=== PATIENT | female | born 1970 | race Two or more races ===

== ENCOUNTER 2024-05-30 09:01 | Emergency (ER) | payer MEDICAID, SELFPAY ==
[2024-05-30 09:17] VITALS: BP 150/80; PULSE 87; RESP 19; TEMP 36.7; O2SAT 98; BMI 24.6
--- NOTE | 2024-05-30 09:39 | EKG_ITS ---
[facility] Test Date: 2024-05-30 Pat Name: YESSY GUTIERREZ Department: Room: - Gender: Female Clinical Social Work Aide: : 1970 Requested By: Drew Dickey ([facility]) Order Number: [id number] Reading MD: Drew Dickey ([facility]) Measurements Intervals [place] Rate: 79 P: 15 IL: 141 QRS: 35 QRSD: 88 T: 50 QT: 383 QTc: 441 Interpretive Statements SINUS RHYTHM Compared to ECG 12/26/2023 14:21:34 Short [place] interval no longer present /store/S0/[id number].pdf
--- NOTE | 2024-05-30 09:39 | XR_ITS ---
Examination: PA lateral chest 2 views Technique: Upright PA lateral chest 2 views Exam date and time: May 30, 2024 1006 hrs. Comparison December 26, 2023 Indications: Choking episode today Findings: Normal heart size No aspiration pneumonia Intact osseous structures Impression: No aspiration pneumonia
--- NOTE | 2024-05-30 09:42 | PD.EDRME ---
Rapid Medical Screening Exam RME Arrival date/time: 05/30/24 09:01 53-year-old female presents emergency department complaining of chest pain with cough and bodyaches for several days. Patient also reports yesterday had choking episode with piece of chicken. Chief Complaint: Flu Like Symptoms Time Seen by Provider: 05/30/24 09:10 Vital signs: Vital Signs Temperature 98.1 F 05/30/24 09:17 Pulse Rate 87 05/30/24 09:17 Respiratory Rate 19 05/30/24 09:17 Blood Pressure 150/80 H 05/30/24 09:17 Pulse Oximetry (%) 98 05/30/24 09:17 Oxygen Delivery Method Room Air 05/30/24 09:17 Vital signs reviewed by provider: Yes
[2024-05-30 10:20] LABS: Basophils # (Auto) 0.1 Thou/mm3 (0.0-0.2); Basophils % (Auto) 1 % (0-2.5); Eosinophils # (Auto) 0.2 Thou/mm3 (0.0-0.5); Eosinophils % (Auto) 2 % (0-10); Hematocrit 35.3 % (36.0-46.0); Hemoglobin 11.8 g/dL (12.0-16.0); Immature Granulocytes % (Auto) 0 % (0-0); Immature Granulocytes Auto 0.02 Thou/mm3 (0.00-0.00); Lymphocytes # (Auto) 2.4 Thou/mm3 (1.0-4.8); Lymphocytes % (Auto) 33 % (10-50); Mean Corpuscular HGB Conc 33.4 g/dl (31.0-37.0); Mean Corpuscular Hemoglobin 27.1 pg (25.0-35.0); Mean Corpuscular Volume 81 fL (80-100); Monocytes # (Auto) 0.4 Thou/mm3 (0.0-0.8); Monocytes % (Auto) 6 % (0-12); Neutrophils # (Auto) 4.4 Thou/mm3 (1.8-7.7); Neutrophils % (Auto) 59 % (37-80); Nucleated Red Blood Cell % 0 /100 WBC (0); Platelet Count 370 Thou/mm3 (140-440); RDW Standard Deviation 40.1 fL (36.4-46.3); Red Blood Count 4.35 Miln/mm3 (4.00-5.20); White Blood Count 7.4 Thou/mm3 (3.6-11.0)
[2024-05-30 10:32] LABS: Amphetamine/Methamp Scrn,U Negative (Negative); Barbiturate Screen,Urine Negative (Negative); Benzodiazepines Screen,Urine Negative (Negative); Benzoylecgonine Screen, Ur Negative (Negative); Fentanyl Screen,Urine Negative (Negative); Opiate Screen,Urine Negative (Negative); THC Screen,Urine Negative (Negative)
[2024-05-30 10:43] LABS: Alanine Aminotransferase 18 U/L (10-49); Albumin, Serum 4.4 gm/dL (3.5-5.0); Albumin/Globulin Ratio 1.3 (1.2-2.2); Alkaline Phosphatase 125 U/L (46-116); Anion Gap 6 (7-16); Aspartate Amino Transferase 30 U/L (0-34); BUN/Creatinine Ratio 8 Ratio (12-20); Bilirubin,Total 0.5 mg/dL (0.3-1.2); Blood Urea Nitrogen 10 mg/dL (9-23); Calcium 9.4 mg/dL (8.3-10.6); Calcium (Corrected) 9.4 mg/dL (8.5-10.1); Carbon Dioxide 25.3 mMol/L (20.0-31.0); Chloride 98 mMol/L (98-107); Creatinine (Component) 1.2 mg/dL (0.6-1.3); Estimated Creatinine Clearance 47.9 mL/min (>60); Globulin 3.4 gm/dL (2.3-3.5); Osmolality,Calculated 279 (275-295); Potassium 4.5 mMol/L (3.4-5.1); Sodium 129 mMol/L (136-145); Total Protein 7.8 gm/dL (5.7-8.2); Troponin I < 0.002 ng/mL (0.0-0.045); eGFR 55 See Note
[2024-05-30 10:46] LABS: Glucose 487 mg/dL (74-106)
[2024-05-30 11:27] VITALS: BP 175/99; PULSE 79; RESP 18; TEMP 36.4; O2SAT 100
--- NOTE | 2024-05-30 15:34 | PC.NURSE ---
PATIENT CALLED BY LAB MULTIPLE TIMES WITH NO ANSWER. WILL TRY AGAIN
--- NOTE | 2024-05-30 16:19 | PC.NURSE ---
NO ANSWER IN LOBBY
== END 2024-05-30 16:19 | disposition left against medical advice (07) ==
LOC: SERX 09:54
PROVIDERS: Emergency Provider Emergency Medicine; PCP Family Medicine
DX: R07.9 Chest pain, unspecified (principal); R05.9 Cough, unspecified; Z53.29 Procedure and treatment not carried out because of patient's decision for other reasons
CPT/HCPCS: 36415; 71046; 80053; 80307; 84484; 85025; 87400; 87811; 93005; 99283

== ENCOUNTER 2024-06-21 21:31 | Emergency (ER) | payer MEDICAID, SELFPAY ==
[2024-06-21 21:39] VITALS: BP 153/73; PULSE 107; RESP 18; TEMP 36.4; O2SAT 100; BMI 21.6
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
[2024-06-21] MEDS: hydrOXYzine HCL 25 MG TABLET PO (22:13)
== END 2024-06-21 22:21 | disposition home or self-care (01) ==
PROVIDERS: Emergency Provider Emergency Medicine
DX: F41.9 Anxiety disorder, unspecified (principal)
CPT/HCPCS: 99282; A9270

== ENCOUNTER 2024-06-22 12:09 | Emergency (ER) | payer MEDICAID, SELFPAY ==
--- NOTE | 2024-06-22 12:33 | PD.EDRME ---
Rapid Medical Screening Exam RME Arrival date/time: 06/22/24 12:09 53-year-old female presents emergency department with complaints of chest pain. I have greeted and performed a focused initial assessment of this patient. Initial appropriate labs ordered at this time. A comprehensive ED assessment and evaluation of the patient and analysis of all test and completion of medical decision making process will be conducted by additional ED provider. Chief Complaint: Chest Pain Time Seen by Provider: 06/22/24 12:27
--- NOTE | 2024-06-22 12:44 | PC.NURSE ---
BROUGHT PT BACK TO GET VS AND TOO BE SEEN BY PROVIDER PT ASKED IF WE HAD ANY BEDS FOR HER TO LAY DOWN IN. INFORMED PT THAT WE CURRENTLY DON'T HAVE ANY BEDS PT GOT UPSET TOOK OF BF CUFF AND WALKED OUT OF ROOM AND LEFT BEFORE VS WERE DONE
== END 2024-06-22 14:11 | disposition left against medical advice (07) ==
LOC: SERX 13:29
PROVIDERS: Emergency Provider Emergency Medicine
DX: R07.9 Chest pain, unspecified (principal); Z53.29 Procedure and treatment not carried out because of patient's decision for other reasons

== ENCOUNTER 2024-07-03 10:09 | Emergency (ER) | payer MEDICAID, SELFPAY ==
[2024-07-03 10:41] VITALS: BP 121/78; PULSE 89; RESP 19; TEMP 36.6; O2SAT 100
[2024-07-03 10:42] VITALS: BMI 24.0
--- NOTE | 2024-07-03 10:42 | XR_ITS ---
Examination: PA chest single view TECHNIQUE: Upright PA chest single view Exam date and time: July 03, 2024 1051 hours Comparison May 30, 2024 FINDINGS: Onset chest pain today FINDINGS: Normal heart size. Lungs are clear. The osseous structures are intact IMPRESSION: No active disease
--- NOTE | 2024-07-03 10:42 | EKG_ITS ---
[facility] Test Date: 2024-07-03 Pat Name: YESSY GUTIERREZ Department: Room: - Gender: Female Cash Checker: : 1970 Requested By: Otto Hillman Order Number: [id number] Reading MD: Otto Hillman Measurements Intervals [place] Rate: 90 P: 22 [place]: 137 QRS: 14 QRSD: 85 T: 44 QT: 372 QTc: 457 Interpretive Statements SINUS RHYTHM Compared to ECG 05/30/2024 09:52:50 No significant changes /store/S0/[id number]
--- NOTE | 2024-07-03 10:46 | PD.EDRME ---
Rapid Medical Screening Exam RME Arrival date/time: 07/03/24 10:09 Chief Complaint: Syncope / Near Syncope Time Seen by Provider: 07/03/24 10:25 Vital signs: Vital Signs Temperature 97.9 F 07/03/24 10:41 Pulse Rate 89 07/03/24 10:41 Respiratory Rate 19 07/03/24 10:41 Blood Pressure 121/78 07/03/24 10:41 Pulse Oximetry (%) 100 07/03/24 10:41 Oxygen Delivery Method Room Air 07/03/24 10:41 RME Narrative: Chest pain, dizziness, nausea started this morning while eating breakfast
[2024-07-03 11:29] LABS: Collection Type, Urine Clean Catch
[2024-07-03 11:30] LABS: Basophils # (Auto) 0.1 Thou/mm3 (0.0-0.2); Basophils % (Auto) 1 % (0-2.5); Eosinophils # (Auto) 0.1 Thou/mm3 (0.0-0.5); Eosinophils % (Auto) 1 % (0-10); Hemoglobin 10.4 g/dL (12.0-16.0); Immature Granulocytes % (Auto) 0 % (0-0); Immature Granulocytes Auto 0.01 Thou/mm3 (0.00-0.00); Lymphocytes # (Auto) 2.3 Thou/mm3 (1.0-4.8); Lymphocytes % (Auto) 27 % (10-50); Mean Corpuscular HGB Conc 33.5 g/dl (31.0-37.0); Mean Corpuscular Volume 81 fL (80-100); Monocytes # (Auto) 0.7 Thou/mm3 (0.0-0.8); Monocytes % (Auto) 8 % (0-12); Neutrophils # (Auto) 5.3 Thou/mm3 (1.8-7.7); Neutrophils % (Auto) 63 % (37-80); Nucleated Red Blood Cell % 0 /100 WBC (0); Platelet Count 310 Thou/mm3 (140-440); RDW Standard Deviation 39.8 fL (36.4-46.3); Red Blood Count 3.85 Miln/mm3 (4.00-5.20); White Blood Count 8.4 Thou/mm3 (3.6-11.0)
[2024-07-03 11:34] LABS: Bacteria,Urine Rare; Bilirubin,Urine Negative (Negative); Blood,Urine Negative (Negative); Clarity,Urine Clear (Clear/Hazy); Color,Urine Colorless (Lt Yel-Yel); Glucose, Urine 4+ (Negative); Ketones,Urine 1+ (Negative); Leukocyte Esterase,Urine Negative (Negative); Nitrite,Urine Negative (Negative); PH,Urine 6.5 (5.0-7.0); Protein,Urine Trace (Neg - Trace); RBC,Urine 2 /hpf (0-3); Specific Gravity,Urine 1.032 (1.001-1.035); Squamous Epithelial Cell,Urine 2 /hpf (0-5); Urobilinogen,Urine Negative mg/dL (0.0-1.0); WBC,Urine 1 /hpf (0-5)
[2024-07-03 11:52] LABS: B-Type Natriuretic Peptide 33 pg/mL (0-100)
[2024-07-03 12:06] LABS: Alanine Aminotransferase 12 U/L (10-49); Albumin/Globulin Ratio 1.3 (1.2-2.2); Alkaline Phosphatase 113 U/L (46-116); Anion Gap 8 (7-16); Aspartate Amino Transferase 14 U/L (0-34); BUN/Creatinine Ratio 12 Ratio (12-20); Bilirubin,Total 0.6 mg/dL (0.3-1.2); Blood Urea Nitrogen 14 mg/dL (9-23); Calcium 8.8 mg/dL (8.3-10.6); Calcium (Corrected) 8.8 mg/dL (8.5-10.1); Carbon Dioxide 23.2 mMol/L (20.0-31.0); Chloride 93 mMol/L (98-107); Creatinine (Component) 1.2 mg/dL (0.6-1.3); Estimated Creatinine Clearance 47.9 mL/min (>60); Globulin 3.1 gm/dL (2.3-3.5); Osmolality,Calculated 283 (275-295); Potassium 3.8 mMol/L (3.4-5.1); Sodium 124 mMol/L (136-145); Total Protein 7.1 gm/dL (5.7-8.2); Troponin I < 0.002 ng/mL (0.0-0.045); eGFR 55 See Note
[2024-07-03 12:11] LABS: Glucose 699 mg/dL (74-106)
--- NOTE | 2024-07-03 13:18 | EDNOTE_ITS ---
ED Syncope RME/HPI General Chief Complaint: Syncope / Near Syncope Stated Complaint: FEVERISH, HOT FLASHES, FEEL LIKE PASSING OUT Time Seen by Provider: 07/03/24 10:25 Arrival date/time: 07/03/24 10:09 RME / HPI RME / HPI narrative: 53-year-old female patient with significant history of diabetes mellitus, homelessness, came in for evaluation regarding feeling feverish and not feeling well. Patient woke up this morning with the symptoms. Patient denies any chest pain. Denies any abdominal pain. Denies any other complaints. No medication was taken prior to arrival. Related Data Home Medications ?Medication ?Instructions ?Recorded ?Confirmed Hum Insulin Nph/Reg Insulin Hm 25 u subcut AM/PM DIABETES ##0 11/03/09 (Novolin 70/30 100 Units/Ml Via) gabapentin 100 mg capsule 600 mg PO TID PAIN #0 caps 07/18/13 atenolol 25 mg tablet (Tenormin) 25 mg PO HS #0 tabs 07/23/14 Aspirin (Adult Low Strength Aspir) 81 mg PO QDAY ##30 11/28/16 Atorvastatin Calcium 10 mg PO HS ##30 11/28/16 Citalopram Hydrobromide * (CELEXA 20 mg PO QDAY ##30 11/28/16 *) alprazolam 0.25 mg tablet 0.25 mg PO BID ##60 11/28/16 glipizide 5 mg tablet 5 mg PO QDAY ##60 11/28/16 hydrochlorothiazide 25 mg tablet 25 mg PO QDAY ##30 11/28/16 lisinopril 10 mg tablet 10 mg PO QDAY ##30 11/28/16 Previous Rx's ?Medication ?Instructions ?Recorded Hydrocodone/Acetaminophen * (NORCO 1 tab PO Q6H PRN PAIN #28 tabs 05/28/15 5/325 *) Hydrocodone/Acetaminophen * (NORCO 1 - 2 tab PO Q4H PRN PAIN #20 tabs 05/30/16 5/325 *) empty container (Sharps Container) #1 ea 12/26/23 ibuprofen 800 mg tablet 800 mg PO TID PRN pain #30 tabs 05/15/24 Allergies Allergy/AdvReac Type Severity Reaction Status Date / Time ciprofloxacin Allergy Severe HIVES, Verified 07/03/24 10:25 VOMITING Sulfa (Sulfonamide Allergy Severe ABD PAIN Verified 07/03/24 10:25 Antibiotics) AND VOMITING Review of Systems Review of Systems Narrative Review of Systems: Review of system reviewed and within normal limits except mentioned in HPI ED Exam Narrative Physical exam: VITAL SIGNS: Reviewed. GENERAL APPEARANCE: Alert and interactive, follows commands, no acute distress, HEAD AND FACE: Non-traumatic. ENT: PERRL, pink conjunctivitis, eyelid no trauma, Mucous membrane moist. NECK: Supple, nontender, no nuchal rigidity. CHEST: No tenderness, no crepitus, no paradoxical movement, no retractions. LUNGS: Clear, well ventilated, symmetric, no rales, no wheezing, no ronchi, no stridor, good breath sounds bilaterally. HEART: Regular rate, regular rhythm, no murmur, no gallops. ABDOMEN: Soft, positive bowel sounds, nondistended, no guarding, nontender, no rebound, no masses, RECTAL: Deferred. GENITAL: Deferred. NEUROLOGICAL: Gross motor function intact sensory function intact, Appropriate for age. MUSCULOSKELETAL: low back nontender, full range of motion. EXTREMITIES: Nontender, full range of motion. SKIN: Color pink, dry, no rash, no lacerations, no abrasions, no contusions. LYMPHATICS: Deferred. Course Quality Measures none Orders Category Date Time Status EKG (ED ONLY) *Do not use* NOW Care 07/03/24 10:42 Completed CXR [XR chest 1V] Stat Exams 07/03/24 10:42 Completed EKG (ED Only) Stat Exams 07/03/24 10:42 Draft BNP [B-Type Natriuretic Peptide] Stat Lab 07/03/24 11:20 Completed CBC Stat Lab 07/03/24 11:20 Completed CMP [Comprehensive Metabolic Panel] Stat Lab 07/03/24 11:20 Completed Troponin I Stat Lab 07/03/24 11:20 Completed UA [Urinalysis] Stat Lab 07/03/24 11:18 Completed Insulin Regular Med 07/03/24 13:16 Discontinued 10 unit SC X1 ONE Sodium Chloride 0.9% 1000 ml [Ns] 1,000 ml Med 07/03/24 13:17 Discontinued IV 999 mls/hr Vital Signs Vital signs: Vital Signs Temperature 97.9 F 07/03/24 10:41 Pulse Rate 89 07/03/24 10:41 Respiratory Rate 19 07/03/24 10:41 Blood Pressure 121/78 07/03/24 10:41 Pulse Oximetry (%) 100 07/03/24 10:41 Oxygen Delivery Method Room Air 07/03/24 10:41 Syncope MDM Narrative MDM Narrative:: 53-year-old female patient with significant history of diabetes mellitus, homelessness, came in for evaluation regarding feeling feverish and not feeling well. Patient woke up this morning with the symptoms. Patient denies any chest pain. Denies any abdominal pain. Denies any other complaints. No medication was taken prior to arrival. Laboratory workup showed blood sugar of 699 with no sign of DKA. The rest of the labs unremarkable. Patient received 1 L of IV fluids, and regular insulin 10 units subcu. Repeat blood sugar was noted to be 267. Patient is denying any complaints patient is ready to go home. Patient data External records reviewed:: None Clinical information provided by:: patient Social determinants that could affect healthcare access:: none (None) Patient has the following chronic illnesses:: Diabetes mellitus How is presenting disease/condition affected by chronic disease/condition?: exacerbated by Evaluation data The following diagnostics were reviewed and interpreted by me:: lab results Lab and/or radiology exams considered but not ordered:: None Interpretation Summary: Laboratory workup showed blood sugar of 699 with no sign of DKA. Medications / Prescriptions Medications or Prescriptions considered but not ordered:: none Medication administrations:: Medication Administration History Discontinued Medications Sodium Chloride (Ns) 1,000 mls @ 999 mls/hr IV .Q1H1M ONE Stop: 07/03/24 14:17 Last Admin: 07/03/24 15:18 Dose: 999 mls/hr Documented By: Insulin Human Regular (Insulin Hum Regular 1 Unit/0.01 Ml (Per Unit)) 10 unit SC X1 ONE Stop: 07/03/24 13:17 Last Admin: 07/03/24 14:50 Dose: 10 unit Documented By: Co-signed By: RAFAEL IV fluids for hydration, regular insulin Consultations Consultation(s) initiated? (list below): No Consultation #1 (Physician, Specialty, Details): None Diagnosis Syncope Differential Diagnosis: other (Hyperglycemia, DKA, poor medication compliance) Most likely diagnosis given after review of the tests above:: Hyperglycemia, history of diabetes mellitus Admission Indicated Admission indicated?: not indicated Explain why admission is indicated or not indicated:: Stable Admission Request Was there a request for admission?: No Disposition Plan Disposition Plan: Discharge Discharge Attestation Discharge Attestation: The patient was given an opportunity to ask questions and understood the allie dunlap instructions. Discharge instructions specifically effects, indications for sooner follow up or return to the emergency department, and the expected course of current diagnosis. Patient condition: Stable Discharge Plan Plan Patient Disposition: HOME (Self Care) Disposition Comment: stable Prescriptions/Referrals Prescriptions/Med Rec: No Action Hum Insulin Nph/Reg Insulin Hm (Novolin 70/30 100 Units/Ml Via) 10 ML VIAL 25 u Sub-Q AM/PM Qty: 0 gabapentin 100 MG capsule 600 mg PO TID Qty: 0 atenolol [Tenormin] 25 MG tablet 25 mg PO HS Qty: 0 Hydrocodone/Acetaminophen * (NORCO 5/325 *) 1 TAB tablet 1 tab PO Q6H PRN (Reason: PAIN) Qty: 28 0RF Hydrocodone/Acetaminophen * (NORCO 5/325 *) 1 TAB tablet 1 - 2 tab PO Q4H PRN (Reason: PAIN) Qty: 20 0RF Rx Instructions: FOR PAIN Aspirin (Adult Low Strength Aspir) 81 MG TABLET.DR 81 mg PO QDAY Qty: 30 Atorvastatin Calcium 10 MG tablet 10 mg PO HS Qty: 30 alprazolam 0.25 MG tablet 0.25 mg PO BID Qty: 60 lisinopril 10 MG tablet 10 mg PO QDAY Qty: 30 hydrochlorothiazide 25 MG tablet 25 mg PO QDAY Qty: 30 glipizide 5 MG tablet 5 mg PO QDAY Qty: 60 Citalopram Hydrobromide * (CELEXA *) 20 MG tablet 20 mg PO QDAY Qty: 30 (DME) Sharps Container Misc See Rx Instructions .Route Qty: 1 0RF Rx Instructions: As directed ibuprofen 800 mg tablet 800 mg PO TID PRN (Reason: pain) Qty: 30 0RF Referrals: Elie Manrique MD [Primary Care Provider] - In 1 week Problem List Clinical Impression: Diabetes mellitus, Hyperglycemia Patient/Caregiver Discharge Instructions Discharge Activity: activity as tolerated Education Materials: Diabetes: Caring for Your Body Additional Instructions: Thank you for the opportunity for serving you today. You are stable for discharged . You are advised to: Follow-up with your PCP in 1 to 2 days Return to ED for worsening of symptoms Increase oral fluids Take medication as prescribed by your PCP for your diabetes Print Language: Sami Stand Alone Forms: Roberta Award Info., Patient Portal Info Letter PA/EFFIE Supervising Physician FRANCISCO/EFFIE Supervising Physician: MD Maliha
[2024-07-03] MEDS: INSULIN HUM REGULAR 1 UNIT/0.01 ML (PER UNIT) 10 UNIT SC (14:50)
[2024-07-03] MEDS: SODIUM CHLORIDE 0.9% 1000 ML 1,000 ML 999 ML IV (15:18)
== END 2024-07-03 17:39 | disposition home or self-care (01) ==
PROVIDERS: Physician Assistant; Emergency Provider Emergency Medicine; PCP Family Medicine
DX: E11.65 Type 2 diabetes mellitus with hyperglycemia (principal); Z59.00 Homelessness unspecified; Z79.4 Long term (current) use of insulin; Z79.84 Long term (current) use of oral hypoglycemic drugs
CPT/HCPCS: 36415; 71045; 80053; 81001; 83880; 84484; 85025; 93005; 96360; 96361; 96372; 99284; J1815; J7030

== ENCOUNTER 2024-08-15 08:56 | Emergency (ER) | payer MEDICAID, SELFPAY ==
[2024-08-15 08:56] VITALS: BMI 22.2
[2024-08-15 09:28] VITALS: BP 118/70; PULSE 82; RESP 16; TEMP 36.4; O2SAT 98
--- NOTE | 2024-08-15 09:47 | PD.EDRME ---
Rapid Medical Screening Exam RME Arrival date/time: 08/15/24 08:56 This is a 54-year-old female who presents to the emergency department with complaints of generalized bodyaches, nausea vomiting history of DM poorly controlled. I have greeted and performed a focused initial assessment of this patient. Initial appropriate labs ordered at this time. A comprehensive ED assessment and evaluation of the patient and analysis of all test and completion of medical decision making process will be conducted by additional ED provider. Chief Complaint: Flu Like Symptoms Time Seen by Provider: 08/15/24 08:57 Vital signs: Vital Signs Temperature 97.6 F 08/15/24 09:28 Pulse Rate 82 08/15/24 09:28 Respiratory Rate 16 08/15/24 09:28 Blood Pressure 118/70 08/15/24 09:28 Pulse Oximetry (%) 98 08/15/24 09:28 Oxygen Delivery Method Room Air 08/15/24 09:28
[2024-08-15 10:04] LABS: Collection Type, Urine Clean Catch; RBC,Urine 0 /hpf (0-3)
[2024-08-15] MEDS: ONDANSETRON ODT 4 MG TABRAP PO (10:05)
[2024-08-15 10:29] LABS: Bacteria,Urine 1+; Bilirubin,Urine Negative (Negative); Blood,Urine Trace (Negative); Budding Yeast,Urine Present; Clarity,Urine Clear (Clear/Hazy); Color,Urine Lt-Yellow (Lt Yel-Yel); Glucose, Urine 4+ (Negative); Ketones,Urine 1+ (Negative); Leukocyte Esterase,Urine Negative (Negative); Nitrite,Urine Negative (Negative); PH,Urine 6.5 (5.0-7.0); Protein,Urine 1+ (Neg - Trace); Specific Gravity,Urine 1.031 (1.001-1.035); Squamous Epithelial Cell,Urine 3 /hpf (0-5); Urobilinogen,Urine Negative mg/dL (0.0-1.0); WBC,Urine 1 /hpf (0-5)
[2024-08-15 10:54] LABS: Basophils % (Auto) 1 % (0-2.5); Eosinophils # (Auto) 0.1 Thou/mm3 (0.0-0.5); Eosinophils % (Auto) 1 % (0-10); Hematocrit 35.2 % (36.0-46.0); Hemoglobin 11.5 g/dL (12.0-16.0); Immature Granulocytes % (Auto) 0 % (0-0); Immature Granulocytes Auto 0.02 Thou/mm3 (0.00-0.00); Lymphocytes # (Auto) 2.1 Thou/mm3 (1.0-4.8); Lymphocytes % (Auto) 35 % (10-50); Mean Corpuscular HGB Conc 32.7 g/dl (31.0-37.0); Mean Corpuscular Hemoglobin 26.1 pg (25.0-35.0); Mean Corpuscular Volume 80 fL (80-100); Monocytes # (Auto) 0.6 Thou/mm3 (0.0-0.8); Monocytes % (Auto) 10 % (0-12); Neutrophils # (Auto) 3.2 Thou/mm3 (1.8-7.7); Neutrophils % (Auto) 54 % (37-80); Nucleated Red Blood Cell % 0 /100 WBC (0); Platelet Count 321 Thou/mm3 (140-440); RDW Standard Deviation 42.4 fL (36.4-46.3); White Blood Count 5.9 Thou/mm3 (3.6-11.0)
[2024-08-15 11:11] LABS: Alanine Aminotransferase 14 U/L (10-49); Albumin, Serum 4.1 gm/dL (3.5-5.0); Albumin/Globulin Ratio 1.3 (1.2-2.2); Alkaline Phosphatase 96 U/L (46-116); Anion Gap 11 (7-16); Aspartate Amino Transferase 19 U/L (0-34); BUN/Creatinine Ratio 15 Ratio (12-20); Bilirubin,Total 0.4 mg/dL (0.3-1.2); Blood Urea Nitrogen 16 mg/dL (9-23); Calcium 8.7 mg/dL (8.3-10.6); Calcium (Corrected) 8.7 mg/dL (8.5-10.1); Carbon Dioxide 18.5 mMol/L (20.0-31.0); Chloride 98 mMol/L (98-107); Creatinine (Component) 1.1 mg/dL (0.6-1.3); Globulin 3.1 gm/dL (2.3-3.5); Lipase 43 U/L (12-53); Osmolality,Calculated 277 (275-295); Potassium 3.7 mMol/L (3.4-5.1); Sodium 127 mMol/L (136-145); Total Protein 7.2 gm/dL (5.7-8.2); eGFR > 60 See Note
[2024-08-15 11:13] LABS: Glucose 481 mg/dL (74-106)
--- NOTE | 2024-08-15 11:52 | EDNOTE_ITS ---
Upper Respiratory Inf. RME/HPI General Chief Complaint: Flu Like Symptoms Stated Complaint: MY BONES ACHE AND IM NAUSOUS Time Seen by Provider: 08/15/24 08:57 Arrival date/time: 08/15/24 08:56 RME / HPI RME / HPI Narrative: 54-year-old female patient with significant history of diabetes mellitus, was brought in for evaluation regarding body aches. Onset of symptoms for the last few days as of Saturday aches, feeling nauseous, severity moderate. Patient denies any cough denies any fever denies any abdominal pain denies any chest pain. Patient told me that she is taking her diabetic medication with good compliance. Denies any other complaints. Related Data Home Medications ?Medication ?Instructions ?Recorded ?Confirmed Hum Insulin Nph/Reg Insulin Hm 25 u subcut AM/PM DIABETES ##0 11/03/09 (Novolin 70/30 100 Units/Ml Via) gabapentin 100 mg capsule 600 mg PO TID PAIN #0 caps 07/18/13 atenolol 25 mg tablet (Tenormin) 25 mg PO HS #0 tabs 07/23/14 Aspirin (Adult Low Strength Aspir) 81 mg PO QDAY ##30 11/28/16 Atorvastatin Calcium 10 mg PO HS ##30 11/28/16 Citalopram Hydrobromide * (CELEXA 20 mg PO QDAY ##30 11/28/16 *) alprazolam 0.25 mg tablet 0.25 mg PO BID ##60 11/28/16 glipizide 5 mg tablet 5 mg PO QDAY ##60 11/28/16 hydrochlorothiazide 25 mg tablet 25 mg PO QDAY ##30 11/28/16 lisinopril 10 mg tablet 10 mg PO QDAY ##30 11/28/16 Previous Rx's ?Medication ?Instructions ?Recorded Hydrocodone/Acetaminophen * (NORCO 1 tab PO Q6H PRN PAIN #28 tabs 05/28/15 5/325 *) Hydrocodone/Acetaminophen * (NORCO 1 - 2 tab PO Q4H PRN PAIN #20 tabs 05/30/16 5/325 *) empty container (Sharps Container) #1 ea 12/26/23 ibuprofen 800 mg tablet 800 mg PO TID PRN pain #30 tabs 05/15/24 Allergies Allergy/AdvReac Type Severity Reaction Status Date / Time ciprofloxacin Allergy Severe HIVES, Verified 08/15/24 08:58 VOMITING Sulfa (Sulfonamide Allergy Severe ABD PAIN Verified 08/15/24 08:58 Antibiotics) AND VOMITING Review of Systems Review of Systems Narrative Review of Systems: Review of system reviewed and within normal limits except mentioned in HPI ED Exam Narrative Physical exam: VITAL SIGNS: Reviewed. GENERAL APPEARANCE: Alert and interactive, follows commands, no acute distress, HEAD AND FACE: Non-traumatic. ENT: PERRL, pink conjunctivitis, eyelid no trauma, Mucous membrane moist. NECK: Supple, nontender, no nuchal rigidity. CHEST: No tenderness, no crepitus, no paradoxical movement, no retractions. LUNGS: Clear, well ventilated, symmetric, no rales, no wheezing, no ronchi, no stridor, good breath sounds bilaterally. HEART: Regular rate, regular rhythm, no murmur, no gallops. ABDOMEN: Soft, positive bowel sounds, nondistended, no guarding, nontender, no rebound, no masses, RECTAL: Deferred. GENITAL: Deferred. NEUROLOGICAL: Gross motor function intact sensory function intact, Appropriate for age. MUSCULOSKELETAL: low back nontender, full range of motion. EXTREMITIES: Nontender, full range of motion. SKIN: Color pink, dry, no rash, no lacerations, no abrasions, no contusions. LYMPHATICS: Deferred. Course Quality Measures none Orders Category Date Time Status Bedside COVID-19 Antigen Test NOW Care 08/15/24 09:34 Active Bedside Influenza A&B Antigen Test NOW Care 08/15/24 09:35 Completed CBC Stat Lab 08/15/24 10:26 Completed Comprehensive Metabolic Panel Stat Lab 08/15/24 10:26 Completed Lipase Stat Lab 08/15/24 10:26 Completed Urinalysis Stat Lab 08/15/24 09:56 Completed Insulin Regular Med 08/15/24 11:50 Discontinued 10 unit IV X1 ONE Ondansetron Odt [Zofran Odt] Med 08/15/24 09:35 Discontinued 4 mg PO X1 ONE Potassium Chloride [K-Dur] Med 08/15/24 11:51 Discontinued 40 meq PO X1 ONE Sodium Chloride 0.9% 1000 ml [Ns] 1,000 ml Med 08/15/24 11:51 Discontinued IV 999 mls/hr Vital Signs Vital signs: Vital Signs Temperature 97.6 F 08/15/24 09:28 Pulse Rate 82 08/15/24 09:28 Respiratory Rate 16 08/15/24 09:28 Blood Pressure 118/70 08/15/24 09:28 Pulse Oximetry (%) 98 08/15/24 09:28 Oxygen Delivery Method Room Air 08/15/24 09:28 Upper Respiratory Infection MDM Narrative MDM Narrative:: 54-year-old female patient with significant history of diabetes mellitus, was brought in for evaluation regarding body aches. Onset of symptoms for the last few days as of Saturday aches, feeling nauseous, severity moderate. Patient denies any cough denies any fever denies any abdominal pain denies any chest pain. Patient told me that she is taking her diabetic medication with good compliance. Denies any other complaints. Patient workup is significant for patient treatment hyperglycemia some blood sugar of 481 with no sign of diabetic ketoacidosis. urinalysis no UTI. The rest of the labs unremarkable. Patient received IV fluids, and insulin, latest blood sugar prior to discharge was noted to be 242 Patient data External records reviewed:: None Clinical information provided by:: patient Social determinants that could affect healthcare access:: none Patient has the following chronic illnesses:: Hyper glycemia, diabetes mellitus How is presenting disease/condition affected by chronic disease/condition?: exacerbated by Evaluation data The following diagnostics were reviewed and interpreted by me:: lab results and radiology exam(s) Lab and/or radiology exams considered but not ordered:: None Interpretation Summary: See results [facility] Medications / Prescriptions Medications or Prescriptions considered but not ordered:: None Medication administrations:: Medication Administration History Discontinued Medications Sodium Chloride (Ns) 1,000 mls @ 999 mls/hr IV .Q1H1M ONE Stop: 08/15/24 12:51 Last Infusion: 08/15/24 13:17 Dose: Infused Documented By: Admin: 08/15/24 12:05 Dose: 999 mls/hr Documented By: RADHIKA Insulin Human Regular (Insulin Hum Regular 1 Unit/0.01 Ml (Per Unit)) 10 unit IV X1 ONE Stop: 08/15/24 11:51 Last Admin: 08/15/24 12:06 Dose: 10 unit Documented By: BALDEMAR Co-signed By: ROE Ondansetron HCl (Ondansetron Odt 4 Mg Tabrap) 4 mg PO X1 ONE; Protocol Stop: 08/15/24 09:36 Last Admin: 08/15/24 10:05 Dose: 4 mg Documented By: [facility] Potassium Chloride (Potassium Chloride 20 Meq Tabcr) 40 meq PO X1 ONE Stop: 08/15/24 11:52 Last Admin: 08/15/24 12:05 Dose: 40 meq Documented By: [facility] Potassium replacement, Zofran insulin and IV fluids Consultations Consultation(s) initiated? (list below): No Diagnosis Upper Respiratory Differential Diagnosis: upper respiratory infection, viral infection and other (Dehydration, hyperglycemia) Most likely diagnosis given after review of the tests above:: hyperglycemia, diabetes mellitus Admission Indicated Admission indicated?: not indicated Explain why admission is indicated or not indicated:: Stable Admission Request Was there a request for admission?: No Disposition Plan Disposition Plan: Discharge Discharge Attestation Discharge Attestation: The patient was given an opportunity to ask questions and understood the discharge instructions. Discharge instructions specifically effects, indications for sooner follow up or return to the emergency department, and the expected course of current diagnosis. Patient condition: Stable Discharge Plan Plan Patient Disposition: HOME (Self Care) Disposition Comment: Stable Prescriptions/Referrals Prescriptions/Med Rec: No Action Hum Insulin Nph/Reg Insulin Hm (Novolin 70/30 100 Units/Ml Via) 10 ML VIAL 25 u Sub-Q AM/PM Qty: 0 gabapentin 100 MG capsule 600 mg PO TID Qty: 0 atenolol [Tenormin] 25 MG tablet 25 mg PO HS Qty: 0 Hydrocodone/Acetaminophen * (NORCO 5/325 *) 1 TAB tablet 1 tab PO Q6H PRN (Reason: PAIN) Qty: 28 0RF Hydrocodone/Acetaminophen * (NORCO 5/325 *) 1 TAB tablet 1 - 2 tab PO Q4H PRN (Reason: PAIN) Qty: 20 0RF Rx Instructions: FOR PAIN Aspirin (Adult Low Strength Aspir) 81 MG TABLET.DR 81 mg PO QDAY Qty: 30 Atorvastatin Calcium 10 MG tablet 10 mg PO HS Qty: 30 alprazolam 0.25 MG tablet 0.25 mg PO BID Qty: 60 lisinopril 10 MG tablet 10 mg PO QDAY Qty: 30 hydrochlorothiazide 25 MG tablet 25 mg PO QDAY Qty: 30 glipizide 5 MG tablet 5 mg PO QDAY Qty: 60 Citalopram Hydrobromide * (CELEXA *) 20 MG tablet 20 mg PO QDAY Qty: 30 (DME) Sharps Container Misc See Rx Instructions .Route Qty: 1 0RF Rx Instructions: As directed ibuprofen 800 mg tablet 800 mg PO TID PRN (Reason: pain) Qty: 30 0RF Referrals: Elie Manrique MD [Primary Care Provider] - In 1 week Problem List Clinical Impression: Hyperglycemia, Diabetes mellitus Patient/Caregiver Discharge Instructions Discharge Activity: activity as tolerated Education Materials: ED Diet: Diabetes Additional Instructions: Thank you for the opportunity for serving you today. You are stable for discharged . You are advised to: Follow-up with your PCP in 1 to 2 days Return to ED for worsening of symptoms Increase oral fluids Take medication as prescribed by your PCP Print Language: Syriac Stand Alone Forms: Roberta Award Info., Patient Portal Info Letter PA/CLASS C DRIVER Supervising Physician FRANCISCO/EFFIE Supervising Physician: MD Laura
[2024-08-15] MEDS: SODIUM CHLORIDE 0.9% 1000 ML 1,000 ML 999 ML IV (12:05)
[2024-08-15] MEDS: POTASSIUM CHLORIDE 20 mEq TABCR 40 MEQ PO (12:05)
[2024-08-15] MEDS: INSULIN HUM REGULAR 1 UNIT/0.01 ML (PER UNIT) 10 UNIT IV (12:06)
== END 2024-08-15 15:05 | disposition home or self-care (01) ==
PROVIDERS: Nurse Practitioner Primary Care; Emergency Provider Emergency Medicine; PCP Family Medicine
DX: E11.65 Type 2 diabetes mellitus with hyperglycemia (principal)
CPT/HCPCS: 36415; 80053; 81001; 83690; 85025; 87400; 87811; 96360; 99284; J1815; J7030; Q0162; A9270

== ENCOUNTER 2024-09-07 08:07 | Emergency (ER) | payer MEDICAID, SELFPAY ==
[2024-09-07 08:07] VITALS: PULSE 97; RESP 20; O2SAT 96; BMI 22.6
[2024-09-07 08:16] VITALS: BP 131/82; PULSE 100; RESP 18; TEMP 36.7; O2SAT 97
--- NOTE | 2024-09-07 08:29 | XR_ITS ---
Examination: PA lateral chest 2 views Technique: Upright PA lateral chest 2 views Exam date and time: September 07, 2024 0913 hrs. Indications: Coughing beginning 3 days ago. Findings: Early right base pneumonia Normal heart size The osseous structures are intact Impression: Early right base pneumonia
--- NOTE | 2024-09-07 08:29 | PD.EDRME ---
Rapid Medical Screening Exam RME Arrival date/time: 09/07/24 08:07 54-year-old female insulin-dependent diabetic who reports being homeless presents to the emergency department with complaints of generalized fatigue, cough, congestion, body aches Chief Complaint: Flu Like Symptoms Time Seen by Provider: 09/07/24 08:19 Vital signs: Vital Signs Temperature 98.1 F 09/07/24 08:16 Pulse Rate 100 09/07/24 08:16 Respiratory Rate 18 09/07/24 08:16 Blood Pressure 131/82 H 09/07/24 08:16 Pulse Oximetry (%) 97 09/07/24 08:16 Oxygen Delivery Method Room Air 09/07/24 08:16
[2024-09-07 09:30] LABS: Collection Type, Urine Clean Catch
[2024-09-07 09:44] LABS: Amphetamine/Methamp Scrn,U Negative (Negative); Barbiturate Screen,Urine Negative (Negative); Benzodiazepines Screen,Urine Negative (Negative); Benzoylecgonine Screen, Ur Negative (Negative); Fentanyl Screen,Urine Negative (Negative); Opiate Screen,Urine Negative (Negative); THC Screen,Urine Negative (Negative)
[2024-09-07 09:45] LABS: Basophils % (Auto) 0 % (0-2.5); Eosinophils % (Auto) 0 % (0-10); Hematocrit 39.1 % (36.0-46.0); Hemoglobin 12.4 g/dL (12.0-16.0); Immature Granulocytes % (Auto) 0 % (0-0); Immature Granulocytes Auto 0.03 Thou/mm3 (0.00-0.00); Lymphocytes % (Auto) 26 % (10-50); Mean Corpuscular HGB Conc 31.7 g/dl (31.0-37.0); Mean Corpuscular Hemoglobin 26.2 pg (25.0-35.0); Mean Corpuscular Volume 83 fL (80-100); Monocytes # (Auto) 0.8 Thou/mm3 (0.0-0.8); Monocytes % (Auto) 11 % (0-12); Neutrophils # (Auto) 4.8 Thou/mm3 (1.8-7.7); Neutrophils % (Auto) 62 % (37-80); Nucleated Red Blood Cell % 0 /100 WBC (0); Platelet Count 317 Thou/mm3 (140-440); RDW Standard Deviation 44.2 fL (36.4-46.3); Red Blood Count 4.73 Miln/mm3 (4.00-5.20); White Blood Count 7.8 Thou/mm3 (3.6-11.0)
[2024-09-07 09:58] LABS: HCG Qualitative,Urine Negative
[2024-09-07 10:03] LABS: Alanine Aminotransferase 13 U/L (10-49); Albumin, Serum 4.5 gm/dL (3.5-5.0); Albumin/Globulin Ratio 1.1 (1.2-2.2); Alkaline Phosphatase 135 U/L (46-116); Anion Gap 18 (7-16); Aspartate Amino Transferase 24 U/L (0-34); BUN/Creatinine Ratio 16 Ratio (12-20); Bilirubin,Total 0.5 mg/dL (0.3-1.2); Blood Urea Nitrogen 19 mg/dL (9-23); Calcium 9.7 mg/dL (8.3-10.6); Calcium (Corrected) 9.7 mg/dL (8.5-10.1); Carbon Dioxide 15.9 mMol/L (20.0-31.0); Chloride 95 mMol/L (98-107); Creatinine (Component) 1.2 mg/dL (0.6-1.3); Estimated Creatinine Clearance 51.3 mL/min (>60); Globulin 4.2 gm/dL (2.3-3.5); Glucose 354 mg/dL (74-106); Lipase 34 U/L (12-53); Osmolality,Calculated 275 (275-295); Sodium 129 mMol/L (136-145); Total Protein 8.7 gm/dL (5.7-8.2); eGFR 54 See Note
[2024-09-07 10:06] LABS: Bacteria,Urine Rare; Bilirubin,Urine Negative (Negative); Blood,Urine 3+ (Negative); Clarity,Urine Clear (Clear/Hazy); Color,Urine Lt-Yellow (Lt Yel-Yel); Glucose, Urine 4+ (Negative); Ketones,Urine 4+ (Negative); Leukocyte Esterase,Urine Negative (Negative); Nitrite,Urine Negative (Negative); Protein,Urine 1+ (Neg - Trace); RBC,Urine 70 /hpf (0-3); Specific Gravity,Urine 1.028 (1.001-1.035); Squamous Epithelial Cell,Urine 5 /hpf (0-5); Urobilinogen,Urine Negative mg/dL (0.0-1.0); WBC,Urine 16 /hpf (0-5)
[2024-09-07 10:07] LABS: Culture Indicated,Urine Yes
--- NOTE | 2024-09-07 11:01 | PD.EDADULT ---
ED General RME/HPI General Chief complaint: Flu Like Symptoms Stated complaint: FLU-LIKE SYMPTOMS Time Seen by Provider: 09/07/24 08:19 Arrival date/time: 09/07/24 08:07 CC: Body aches generalized fatigue HPI ongoing for the past 3 days states she has a fever however is homeless does not have a thermometer states she continues to take her diabetes medication denies excessive thirst or excessive urination. Denies any chest pain shortness of breath or difficulty breathing. RME / HPI RME / HPI narrative: 09/07/24 08:07 54-year-old female insulin-dependent diabetic who reports being homeless presents to the emergency department with complaints of generalized fatigue, cough, congestion, body aches Related Data Home Medications ?Medication ?Instructions ?Recorded ?Confirmed Hum Insulin Nph/Reg Insulin Hm 25 u subcut AM/PM DIABETES ##0 11/03/09 (Novolin 70/30 100 Units/Ml Via) gabapentin 100 mg capsule 600 mg PO TID PAIN #0 caps 07/18/13 atenolol 25 mg tablet (Tenormin) 25 mg PO HS #0 tabs 07/23/14 Aspirin (Adult Low Strength Aspir) 81 mg PO QDAY ##30 11/28/16 Atorvastatin Calcium 10 mg PO HS ##30 11/28/16 Citalopram Hydrobromide * (CELEXA 20 mg PO QDAY ##30 11/28/16 *) alprazolam 0.25 mg tablet 0.25 mg PO BID ##60 11/28/16 glipizide 5 mg tablet 5 mg PO QDAY ##60 11/28/16 hydrochlorothiazide 25 mg tablet 25 mg PO QDAY ##30 11/28/16 lisinopril 10 mg tablet 10 mg PO QDAY ##30 11/28/16 Previous Rx's ?Medication ?Instructions ?Recorded Hydrocodone/Acetaminophen * (NORCO 1 tab PO Q6H PRN PAIN #28 tabs 05/28/15 5/325 *) Hydrocodone/Acetaminophen * (NORCO 1 - 2 tab PO Q4H PRN PAIN #20 tabs 05/30/16 5/325 *) empty container (Sharps Container) #1 ea 12/26/23 ibuprofen 800 mg tablet 800 mg PO TID PRN pain #30 tabs 05/15/24 guaifenesin 100 mg/5 mL oral liquid 200 mg (10 mL) PO Q4H PRN cough 09/07/24 #473 mL Allergies Allergy/AdvReac Type Severity Reaction Status Date / Time ciprofloxacin Allergy Severe HIVES, Verified 08/15/24 08:58 VOMITING Sulfa (Sulfonamide Allergy Severe ABD PAIN Verified 08/15/24 08:58 Antibiotics) AND VOMITING Review of Systems Review of Systems Narrative Review of Systems: GEN: No fever, no chills, no weight loss EYES: No discharge, no visual changes, no pain HEENT: No ear pain, no congestion, no sore throat PULM: No shortness of breath, no cough, no congestion CV: No chest pain, no dyspnea on exertion, no palpitations GI: No nausea, no vomiting, no diarrhea, no pain, no constipation : No frequency, no urgency, no dysuria MUSC/SKEL: No joint pain, no back pain SKIN: No rash PSYCH: No hallucinations, no depression HEME/LYMPH: No easy bleeding or bruising tendencies NEURO: No weakness, no headache Past Medical History Past Medical History CARDIAC: Positive Hypertension; Negative Congestive Heart Failure RESPIRATORY: Negative Chronic Obstructive Pulmonary Disease (COPD) GENITOURINARY: Negative Renal Disease MUSCULOSKELETAL: Positive Rheumatoid Arthritis ENDOCRINE: Positive Diabetes Mellitus Type 2; Negative Diabetes Mellitus Type 1 Social History SMOKING STATUS: Never smoker ED Exam Narrative Physical exam: [General: Thin but not emaciated, not in any acute distress Head normocephalic HEENT: Within acceptable limits Neck is supple nontender Chest equal chest rise nontender to palpation Respiratory: Clear to auscultation no wheezes crackles or rubs CV: Rate rhythm is regular no murmurs rubs or clicks Abdomen is soft nontender no masses positive bowel sounds all 4 quadrants Back: No CVA tenderness no spinous process tenderness from cervical spine thoracic and lumbar spine Skin: Intact no petechiae rash induration ulceration or crepitus Extremities: Moving all extremity against resistance cap refill less than 2 seconds neurosensory intact Neuro: Awake alert oriented x3 Glascow coma 15 no focal deficits] Course Quality Measures none Orders Category Date Time Status Bedside Blood Glucose NOW Care 09/07/24 08:22 Completed Bedside COVID-19 Antigen Test NOW Care 09/07/24 08:20 Completed Bedside Influenza A&B Antigen Test NOW Care 09/07/24 08:11 Completed Bedside Influenza A&B Antigen Test NOW Care 09/07/24 10:58 Completed XR chest 2V Stat Exams 09/07/24 08:29 Completed Beta Hydroxybutyrate Stat Lab 09/07/24 11:00 Completed CBC Stat Lab 09/07/24 09:16 Completed Comprehensive Metabolic Panel Stat Lab 09/07/24 09:16 Completed Drug Screen,Urine Stat Lab 09/07/24 09:13 Completed HCG Qualitative,Urine Stat Lab 09/07/24 09:13 Completed Lipase Stat Lab 09/07/24 09:16 Completed UA, C/S IF [Urinalysis, C/S if Indicated] Stat Lab 09/07/24 09:13 Completed Urine Culture Stat Lab 09/07/24 09:13 Received VBG [Venous Blood Gas] Stat Lab 09/07/24 11:00 Completed Acetaminophen Tab [Tylenol Tab] Med 09/07/24 11:38 Discontinued 650 mg PO X1 ONE Sodium Chloride 0.9% 1000 ml [Ns] 1,000 ml Med 09/07/24 10:35 Discontinued IV 999 mls/hr Vital Signs Vital signs: Vital Signs Temperature 98.1 F 09/07/24 08:16 Pulse Rate 100 09/07/24 08:16 Respiratory Rate 18 09/07/24 08:16 Blood Pressure 131/82 H 09/07/24 08:16 Pulse Oximetry (%) 97 09/07/24 08:16 Oxygen Delivery Method Room Air 09/07/24 08:16 [facility] Patient data External records reviewed:: [facility] previous records Clinical information provided by:: patient Social determinants that could affect healthcare access:: none Patient has the following chronic illnesses:: Diabetes anxiety How is presenting disease/condition affected by chronic disease/condition?: exacerbated by Evaluation data The following diagnostics were reviewed and interpreted by me:: lab results, radiology exam(s) and EKG tracing(s) Lab and/or radiology exams considered but not ordered:: CBC shows no acute leukocytosis anemia thrombocytopenia CMP shows a potassium of 4.0 sodium of 129 chloride of 95 CO2 of 15.9 gap of 18 glucose of 354. Alk phos at 135 no other transaminitis or T. bili elevation. Urine shows 1+ protein 4+ glucose 4+ ketones 3+ blood negative for leukocyte Estrace 16 WBCs and 70 RBCs. UDS is negative Lipase is normal hCG is negative Beta hydroxy of 5.6, IV hallucis is starvation beta hydroxy as the patient has no significant gap and on VBG the pH is 7.29. Patient is COVID-negative influenza A positive Interpretation Summary: Influenza A Medications Medications considered but not ordered:: None Medication administrations:: Medication Administration History Discontinued Medications Acetaminophen (Acetaminophen 325 Mg Tablet) 650 mg PO X1 ONE Stop: 09/07/24 11:39 Last Admin: 09/07/24 12:16 Dose: 650 mg Documented By: BRENDA Sodium Chloride (Ns) 1,000 mls @ 999 mls/hr IV .Q1H1M ONE Stop: 09/07/24 11:35 Last Infusion: 09/07/24 13:12 Dose: Infused Documented By: Admin: 09/07/24 11:16 Dose: 999 mls/hr Documented By: BRENDA None Consultations Consultation(s) initiated? (list below): No Diagnosis Differential Diagnosis ED Complaint MDM: Hyperglycemia DKA influenza Most likely diagnosis given after review of the tests above:: Influenza A Admission Indicated Admission indicated?: not indicated Explain why admission is indicated or not indicated:: Stable for outpatient follow-up Admission Request Was there a request for admission?: No Disposition Plan Disposition Plan: Discharge Discharge Attestation Discharge Attestation: The patient and all family members were given an opportunity to ask questions and understood the discharge instructions. Discharge instructions specifically effects, indications for sooner follow up or return to the emergency department, and the expected course of current diagnosis. Patient condition: Stable Medical Decision Making Differential Diagnosis Differential Diagnosis: Hyperglycemia DKA influenza Lab Data 09/07/24 09:16 09/07/24 09:16 Labs: Lab Results 09/07/24 09/07/24 09/07/24 Range/Units 09:13 09:16 11:00 WBC 7.8 (3.6-11.0) Thou/mm3 RBC 4.73 (4.00-5.20) Miln/mm3 Hgb 12.4 (12.0-16.0) g/dL Hct 39.1 (36.0-46.0) % MCV 83 (80-100) fL MCH 26.2 (25.0-35.0) pg MCHC 31.7 (31.0-37.0) g/dl RDW Std Deviation 44.2 (36.4-46.3) fL Plt Count 317 (140-440) Thou/mm3 Neut % (Auto) 62 (37-80) % Lymph % (Auto) 26 (10-50) % [place] % (Auto) 11 (0-12) % Eos % (Auto) 0 (0-10) % Baso % (Auto) 0 (0-2.5) % Neut # (Auto) 4.8 (1.8-7.7) Thou/mm3 Lymph # (Auto) 2.0 (1.0-4.8) Thou/mm3 [place] # (Auto) 0.8 (0.0-0.8) Thou/mm3 Eos # (Auto) 0.0 (0.0-0.5) Thou/mm3 Baso # (Auto) 0.0 (0.0-0.2) Thou/mm3 Immature Gran # (Auto) 0.03 H (0.00-0.00) Thou/mm3 Absolute Nucleated RBC 0.00 (0.00-0.00) Thou/mm3 Immature Gran % 0 (0-0) % Nucleated RBC % 0 (0) /100 WBC VBG pH 7.29 L (7.33-7.66) VBG pCO2 34 L (36-56) mmHg VBG pO2 27 (15-58) mmHg VBG O2 Sat (Kermit) 43 L (96-97) % VBG Base Excess -9 L (-3-3) Sodium 129 L (136-145) mMol/L Potassium 4.0 (3.4-5.1) mMol/L Chloride 95 L (98-107) mMol/L Carbon Dioxide 15.9 L (20.0-31.0) mMol/L Anion Gap 18 H (7-16) BUN 19 (9-23) mg/dL Creatinine 1.2 (0.6-1.3) mg/dL Estim Creat Clear Calc 51.3 L (>60) mL/min eGFR 54 L (60 - ) See Note BUN/Creatinine Ratio 16 (12-20) Ratio Glucose 354 H (74-106) mg/dL Calculated Osmolality 275 (275-295) Calcium 9.7 (8.3-10.6) mg/dL Corrected Calcium 9.7 (8.5-10.1) mg/dL Total Bilirubin 0.5 (0.3-1.2) mg/dL AST 24 (0-34) U/L ALT 13 (10-49) U/L Alkaline Phosphatase 135 H (46-116) U/L Total Protein 8.7 H (5.7-8.2) gm/dL Albumin 4.5 (3.5-5.0) gm/dL Globulin 4.2 H (2.3-3.5) gm/dL Albumin/Globulin Ratio 1.1 L (1.2-2.2) Lipase 34 (12-53) U/L Beta-Hydroxybutyrate/Acetoacetate 5.6 H (<0.6) mmol/L Ur Collection Type Clean Catch Urine Color Lt-Yellow (Lt Yel-Yel) Urine Clarity Clear (Clear/Hazy) Urine pH 6.0 (5.0-7.0) Ur Specific [place] 1.028 (1.001-1.035) Urine Protein 1+ A (Neg - Trace) Urine Glucose (UA) 4+ A (Negative) Urine Ketones 4+ A (Negative) Urine Blood 3+ A (Negative) Urine Nitrite Negative (Negative) Urine Bilirubin Negative (Negative) Urine Urobilinogen (Auto) Negative (0.0-1.0) mg/dL Ur Leukocyte Esterase Negative (Negative) Urine RBC 70 H (0-3) /hpf Urine WBC 16 H (0-5) /hpf Ur Squamous Epith Cells 5 (0-5) /hpf Urine Bacteria Rare (None) Ur Culture Indicated? Yes Urine HCG, Qual Negative Urine Opiates Screen Negative (Negative) Urine Fentanyl Screen Negative (Negative) Ur Barbiturates Screen Negative (Negative) U Amphetamin/Meth Scrn Negative (Negative) U Benzodiazepines Scrn Negative (Negative) U Cocaine Metab Screen Negative (Negative) U Marijuana (THC) Screen Negative (Negative) Discharge Plan Plan Patient Disposition: HOME (Self Care) Patient condition on transfer: Stable Prescriptions/Referrals Prescriptions/Med Rec: New guaifenesin 100 mg/5 mL liquid 200 mg PO Q4H PRN (Reason: cough) Qty: 473 0RF No Action Hum Insulin Nph/Reg Insulin Hm (Novolin 70/30 100 Units/Ml Via) 10 ML VIAL 25 u Sub-Q AM/PM Qty: 0 gabapentin 100 MG capsule 600 mg PO TID Qty: 0 atenolol [Tenormin] 25 MG tablet 25 mg PO HS Qty: 0 Hydrocodone/Acetaminophen * (NORCO 5/325 *) 1 TAB tablet 1 tab PO Q6H PRN (Reason: PAIN) Qty: 28 0RF Hydrocodone/Acetaminophen * (NORCO 5/325 *) 1 TAB tablet 1 - 2 tab PO Q4H PRN (Reason: PAIN) Qty: 20 0RF Rx Instructions: FOR PAIN Aspirin (Adult Low Strength Aspir) 81 MG TABLET.DR 81 mg PO QDAY Qty: 30 Atorvastatin Calcium 10 MG tablet 10 mg PO HS Qty: 30 alprazolam 0.25 MG tablet 0.25 mg PO BID Qty: 60 lisinopril 10 MG tablet 10 mg PO QDAY Qty: 30 hydrochlorothiazide 25 MG tablet 25 mg PO QDAY Qty: 30 glipizide 5 MG tablet 5 mg PO QDAY Qty: 60 Citalopram Hydrobromide * (CELEXA *) 20 MG tablet 20 mg PO QDAY Qty: 30 (DME) Sharps Container Misc See Rx Instructions .Route Qty: 1 0RF Rx Instructions: As directed ibuprofen 800 mg tablet 800 mg PO TID PRN (Reason: pain) Qty: 30 0RF Referrals: Pranay Hatch MD [Primary Care Provider] - In 1 week Problem List Clinical Impression: Influenza A, Hyperglycemia Patient/Caregiver Discharge Instructions Education Materials: Glucose Check Steps, ED Influenza (Adult) Additional Instructions: Take the medications as prescribed use ibuprofen or Tylenol for pain this will go away in the next 7 to 10 days. Take all your regular medications as prescribed. Follow-up with your primary care doctor. Print Language: Israeli Stand Alone Forms: Roberta Award Info., Patient Portal Info Letter PA/EFFIE Supervising Physician PA/ACETYLENE GAS COMPRESSOR Supervising Physician: Janak Vance ENP
[2024-09-07 11:02] LABS: Base Excess, Venous -9 (-3-3); O2 Saturation, Venous 43 % (96-97); PCO2, Venous 34 mmHg (36-56); PO2, Venous 27 mmHg (15-58); pH, Venous 7.29 (7.33-7.66)
[2024-09-07 11:08] LABS: Beta Hydroxybutyrate 5.6 mmol/L (<0.6)
[2024-09-07] MEDS: SODIUM CHLORIDE 0.9% 1000 ML 1,000 ML 999 ML IV (11:16)
[2024-09-07] MEDS: ACETAMINOPHEN 325 MG TABLET 650 MG PO (12:16)
[2024-09-07 12:50] VITALS: BP 156/85; PULSE 90; RESP 17; TEMP 36.7; O2SAT 98
== END 2024-09-07 13:50 | disposition home or self-care (01) ==
PROVIDERS: Nurse Practitioner Primary Care; Emergency Provider Emergency Medicine; PCP Internal Medicine
DX: J10.1 Influenza due to other identified influenza virus with other respiratory manifestations (principal); E11.65 Type 2 diabetes mellitus with hyperglycemia; Z79.4 Long term (current) use of insulin; Z59.00 Homelessness unspecified
CPT/HCPCS: 36415; 71046; 80053; 80307; 81001; 81025; 82010; 82803; 83690; 85025; 87086; 87400; 87811; 96360; 96361; 99284; J7030; A9270

== ENCOUNTER 2024-09-13 10:35 | Emergency (ER) | payer MEDICAID, SELFPAY ==
[2024-09-13 10:38] VITALS: PULSE 107; RESP 20; O2SAT 95; BMI 22.6
[2024-09-13 10:41] VITALS: BP 119/74; PULSE 98; RESP 19; TEMP 36.8; O2SAT 96
--- NOTE | 2024-09-13 11:09 | XR_ITS ---
Examination: AP chest single view Technique one AP portable upright chest single view Exam date and time: September 13, 2024 11:30 AM Comparison September 07, 2024 Indications: Coughing several days Findings: Early pneumonia both lung bases Normal heart size Prominent osteopenia Impression: Early bibasilar pneumonia
--- NOTE | 2024-09-13 11:09 | EKG_ITS ---
[facility] Test Date: 2024-09-13 Pat Name: YESSY GUTIERREZ Department: Room: - Gender: Female Digital Analytics Manager: : 1970 Requested By: Janak Ramirez Order Number: [id number] Reading MD: Janak Ramirez Measurements Intervals [place] Rate: 91 P: 32 AK: 132 QRS: 38 QRSD: 92 T: 55 QT: 358 QTc: 442 Interpretive Statements SINUS RHYTHM Compared to ECG 07/03/2024 10:46:12 No significant changes /[id number]/[id number]
--- NOTE | 2024-09-13 11:10 | EDNOTE_ITS ---
ED General RME/HPI General Chief complaint: Chest Pain Stated complaint: COUGHING, CHEST WALL PAIN Time Seen by Provider: 09/13/24 11:06 Arrival date/time: 09/13/24 10:35 CC: Chest pain shortness of breath HPI ongoing for the past 3 days patient was seen here 5 days ago for hyperglycemia patient is homeless. With multiple visits to the emergency room for wide variety of complaints. Currently denies difficulty breathing or fever no other complaints resting comfortably and speaking in full sentences not pale or diaphoretic stable vital signs. Related Data Home Medications ?Medication ?Instructions ?Recorded ?Confirmed Hum Insulin Nph/Reg Insulin Hm 25 u subcut AM/PM DIABE YELENA ##0 11/03/09 (Novolin 70/30 100 Units/Ml Via) gabapentin 100 mg capsule 600 mg PO TID PAIN #0 caps 1 09/18/12 atenolol 25 mg tablet (Tenormin) 25 mg PO HS #0 tabs 0 07/23/14 Aspirin (Adult Low Strength Aspir) 81 mg PO QDAY ##30 11/28/16 Atorvastatin Calcium 10 mg PO HS ##30 11/28/16 Citalopram Hydrobromide * (CELEXA 20 mg PO QDAY ##30 0 11/28/16 *) alprazolam 0.25 mg tablet 0.25 mg PO BID ##60 11/28/16 glipizide 5 mg tablet 5 mg PO QDAY ##60 11/28/16 hydrochlorothiazide 25 mg tablet 25 mg PO QDAY ##30 lisinopril 10 mg tablet 10 mg PO QDAY ##30 11/28/16 Previous Rx's ?Medication ?Instructions ?Recorded Hydrocodone/Acetaminophen * (NORCO 1 tab PO Q6H PRN PA IN #28 tabs 05/28/15 5/325 *) Hydrocodone/Acetaminophen * (NORCO 1 - 2 tab PO Q4H [place] N PAIN #20 tabs 05/30/16 5/325 *) empty container (Sharps Container) #1 ea 12/26/23 ibuprofen 800 mg tablet 800 mg PO TID PRN pain #30 t abs 05/15/24 guaifenesin 100 mg/5 mL oral liquid 200 mg (10 mL) PO Q4H PRN cough 09/07/24 #473 mL Allergies Allergy/AdvReac Type Severity Reaction Status Date / Time ciprofloxacin Allergy Severe HIVES, Verified 08/15/24 08:58 VOMITING Sulfa (Sulfonamide Allergy Severe ABD PAIN Verified 08/15/24 08:58 Antibiotics) AND VOMITING Review of Systems Review of Systems Narrative Review of Systems: GEN: No fever, no chills, no weight loss EYES: No discharge, no visual changes, no pain HEENT: No ear pain, no congestion, no sore throat PULM: No shortness of breath, no cough, no congestion CV: + chest pain, no dyspnea on exertion, no palpitations GI: No nausea, no vomiting, no diarrhea, no pain, no constipation : No frequency, no urgency, no dysuria MUSC/SKEL: No joint pain, no back pain SKIN: No rash PSYCH: No hallucinations, no depression HEME/LYMPH: No easy bleeding or bruising tendencies NEURO: No weakness, no headache Past Medical History Past Medical History CARDIAC: Positive Hypertension; Negative Congestive Heart Failure RESPIRATORY: Negative Chronic Obstructive Pulmonary Disease (COPD) GENITOURINARY: Negative Renal Disease MUSCULOSKELETAL: Positive Rheumatoid Arthritis ENDOCRINE: Positive Diabetes Mellitus Type 2; Negative Diabetes Mellitus Type 1 Family History FAMILY HISTORY: Positive Family Cancer (PT'S DAD) Social History SMOKING STATUS: Never smoker ED Exam Narrative Physical exam: [General: Not in any acute distress Head normocephalic HEENT: Eyes: Pupils are PERRLA EOMs are intact mouth pink moist membranes uvula is midline swallow symmetrical nose no rhinorrhea or otorrhea all other subsystems of HEENT are within acceptable limits Neck is supple nontender Chest equal chest rise nontender to palpation Respiratory: Clear to auscultation no wheezes crackles or rubs CV: Rate rhythm is regular no murmurs rubs or clicks Abdomen is soft nontender no masses positive bowel sounds all 4 quadrants Back: No CVA tenderness no spinous process tenderness from cervical spine thoracic and lumbar spine Skin: Intact no petechiae rash induration ulceration or crepitus Extremities: Moving all extremity against resistance cap refill less than 2 seconds neurosensory intact. No lower extremity edema Neuro: Awake alert oriented x3 Glascow coma 15 no focal deficits] Course Quality Measures none Orders Category Date Time Status EKG (ED ONLY) *Do not use* NOW Care 09/13/24 11:09 Completed Glucose [Bedside Blood Glucose] Q1HR Care 09/13/24 12:35 Active EKG (ED Only) Stat Exams 09/13/24 11:09 Draft XR chest 1V Stat Exams 09/13/24 11:09 Completed CMP [Comprehensive Metabolic Panel] Stat Lab 09/13/24 11:34 Completed Drug Screen,Urine Stat Lab 09/13/24 13:14 Completed Troponin I Stat Lab 09/13/24 11:34 Completed Troponin I Stat Lab 09/13/24 14:14 Ordered Urinalysis, C/S if Indicated Stat Lab 09/13/24 13:14 Completed Insulin Regular Med 09/13/24 12:34 Discontinued 10 unit SC X1 ONE cefTRIAXone [Rocephin] 1,000 mg Med 09/13/24 14:15 Discontinued Lidocaine 1% 20 ml [Xylocaine 1% 20 ML] 2.1 ml IM X1 Vital Signs Vital signs: Vital Signs Temperature 98.2 F 09/13/24 10:41 Pulse Rate 98 09/13/24 10:41 Respiratory Rate 19 09/13/24 10:41 Blood Pressure 119/74 09/13/24 10:41 Pulse Oximetry (%) 96 09/13/24 10:41 Oxygen Delivery Method Room Air 09/13/24 10:41 [facility] Patient data External records reviewed:: [facility] previous records and EMS form Clinical information provided by:: patient and EMS Social determinants that could affect healthcare access:: housing Patient has the following chronic illnesses:: Diabetes How is presenting disease/condition affected by chronic disease/condition?: u neffected by Evaluation data The following diagnostics were reviewed and interpreted by me:: lab results, radiology exam(s) and EKG tracing(s) Lab and/or radiology exams considered but not ordered:: EKG performed at 1126 shows a ventricular rate of 91. Of 132 QRS of 92 QTc of 407 is normal sinus rhythm. When compared to an old EKG of 5 days ago there is no significant changes. CMP shows a hyponatremia sodium of 1 27, potassium 3.8 chloride of 92 CO2 22.7 gap of 12 glucose of 648. No transaminitis or T. bili elevation Troponin is negative Urine shows 4+ glucose 1+ ketones yeast no bacteria Tox screen is negative Chest x-ray is interpreted as a early right base pneumonia. Repeat blood glucose of 438 Repeat glucose level at 1622 shows a glucose of 289 patient will be discharged home. Interpretation Summary: Patient is hyperglycemic troponin is negative. Patient states she has diabetes medication with her. I am not sure why she is not compliant with it this is the second visit in as many days for the same complaint cardiac workup is negative. Medications Medications considered but not ordered:: None Medication administrations:: Medication Administration History Discontinued Medications Ceftriaxone Sodium 1,000 mg/ (Lidocaine HCl 2.1 ml) 0 mg IM X1 ONE Stop: 09/13/24 14:16 Last Admin: 09/13/24 14:40 Dose: 1,000 mg Documented By: SEAN Insulin Human Regular (Insulin Hum Regular 1 Unit/0.01 Ml (Per Unit)) 10 unit SC X1 ONE Stop: 09/13/24 12:35 Last Admin: 09/13/24 12:58 Dose: 10 unit Documented By: SEAN Co-signed By: JACKY None Consultations Consultation(s) initiated? (list below): No Diagnosis Differential Diagnosis ED Complaint MDM: ACS MT pneumonia Most likely diagnosis given after review of the tests above:: Chest pain hyperglycemia Admission Indicated Admission indicated?: not indicated Explain why admission is indicated or not indicated:: Stable for discharge Admission Request Was there a request for admission?: No Disposition Plan Disposition Plan: Discharge Discharge Attestation Discharge Attestation: The patient and all family members were given an opportunity to ask questions and understood the discharge instructions. Discharge instructions specifically effects, indications for sooner follow up or return to the emergency department, and the expected course of current diagnosis. Patient condition: Stable Medical Decision Making Differential Diagnosis Differential Diagnosis: ACS MT pneumonia Lab Data 09/13/24 11:34 Labs: Lab Results 09/13/24 09/13/24 Range/Units 11:34 13:14 Sodium 127 L (136-145) mMol/L Potassium 3.8 (3.4-5.1) mMol/L Chloride 92 L (98-107) mMol/L Carbon Dioxide 22.7 (20.0-31.0) mMol/L Anion Gap 12 (7-16) BUN 9 (9-23) mg/dL Creatinine 1.0 (0.6-1.3) mg/dL Estim Creat Clear Calc 61.6 (>60) mL/min eGFR > 60 (60 - ) See Note BUN/Creatinine Ratio 9 L (12-20) Ratio Glucose 648 H* (74-106) mg/dL Calculated Osmolality 284 (275-295) Calcium 8.6 (8.3-10.6) mg/dL Corrected Calcium 9.0 (8.5-10.1) mg/dL Total Bilirubin 0.3 (0.3-1.2) mg/dL AST 12 (0-34) U/L ALT 8 L (10-49) U/L Alkaline Phosphatase 112 (46-116) U/L Troponin I < 0.002 (0.0-0.045) ng/mL Total Protein 6.8 (5.7-8.2) gm/dL Albumin 3.5 (3.5-5.0) gm/dL Globulin 3.3 (2.3-3.5) gm/dL Albumin/Globulin Ratio 1.1 L (1.2-2.2) Ur Collection Type Clean Catch Urine Color Lt-Yellow (Lt Yel-Yel) Urine Clarity Clear (Clear/Hazy) Urine pH 6.5 (5.0-7.0) Ur Specific [place] 1.030 (1.001-1.035) Urine Protein Negative (Neg - Trace) Urine Glucose (UA) 4+ A (Negative) Urine Ketones 1+ A (Negative) Urine Blood Negative (Negative) Urine Nitrite Negative (Negative) Urine Bilirubin Negative (Negative) Urine Urobilinogen (Auto) Negative (0.0-1.0) mg/dL Ur Leukocyte Esterase Negative (Negative) Urine RBC < 1 (0-3) /hpf Urine WBC 1 (0-5) /hpf Ur Squamous Epith Cells 2 (0-5) /hpf Urine Bacteria Rare (None) Urine Yeast (Budding) Present A (None) Ur Culture Indicated? Not Indicated Urine Opiates Screen Negative (Negative) Urine Fentanyl Screen Negative (Negative) Ur Barbiturates Screen Negative (Negative) U Amphetamin/Meth Scrn Negative (Negative) U Benzodiazepines Scrn Negative (Negative) U Cocaine Metab Screen Negative (Negative) U Marijuana (THC) Screen Negative (Negative) Discharge Plan Plan Patient Disposition: HOME (Self Care) Patient condition on transfer: Stable Prescriptions/Referrals Prescriptions/Med Rec: No Action Hum Insulin Nph/Reg Insulin Hm (Novolin 70/30 100 Units/Ml Via) 10 ML VIAL 25 u Sub-Q AM/PM Qty: 0 gabapentin 100 MG capsule 600 mg PO TID Qty: 0 atenolol [Tenormin] 25 MG tablet 25 mg PO HS Qty: 0 Hydrocodone/Acetaminophen * (NORCO 5/325 *) 1 TAB tablet 1 tab PO Q6H PRN (Reason: PAIN) Qty: 28 0RF Hydrocodone/Acetaminophen * (NORCO 5/325 *) 1 TAB tablet 1 - 2 tab PO Q4H PRN (Reason: PAIN) Qty: 20 0RF Rx Instructions: FOR PAIN Aspirin (Adult Low Strength Aspir) 81 MG TABLET.DR 81 mg PO QDAY Qty: 30 Atorvastatin Calcium 10 MG tablet 10 mg PO HS Qty: 30 alprazolam 0.25 MG tablet 0.25 mg PO BID Qty: 60 lisinopril 10 MG tablet 10 mg PO QDAY Qty: 30 hydrochlorothiazide 25 MG tablet 25 mg PO QDAY Qty: 30 glipizide 5 MG tablet 5 mg PO QDAY Qty: 60 Citalopram Hydrobromide * (CELEXA *) 20 MG tablet 20 mg PO QDAY Qty: 30 (DME) Sharps Container Misc See Rx Instructions .Route Qty: 1 0RF Rx Instructions: As directed ibuprofen 800 mg tablet 800 mg PO TID PRN (Reason: pain) Qty: 30 0RF guaifenesin 100 mg/5 mL liquid 200 mg PO Q4H PRN (Reason: cough) Qty: 473 0RF Referrals: No Primary/Family,Physician [Primary Care Provider] - In 1 week Problem List Clinical Impression: Chest pain, Hyperglycemia due to diabetes mellitus Patient/Caregiver Discharge Instructions Education Materials: How to Check Your Blood Sugar, Insulin How to Use and Where to Inject, ED Chest Pain, Uncertain Cause Print Language: Cymraes Stand Alone Forms: Roberta Award Info., Patient Portal Info Letter PA/CYTOTECHNOLOGIST/CYTOLOGY SUPERVISOR Supervising Physician PA/CYTOTECHNOLOGIST/CYTOLOGY SUPERVISOR Supervising Physician: Janak Vance ENP
[2024-09-13 12:25] LABS: Alanine Aminotransferase 8 U/L (10-49); Albumin, Serum 3.5 gm/dL (3.5-5.0); Albumin/Globulin Ratio 1.1 (1.2-2.2); Alkaline Phosphatase 112 U/L (46-116); Anion Gap 12 (7-16); Aspartate Amino Transferase 12 U/L (0-34); BUN/Creatinine Ratio 9 Ratio (12-20); Bilirubin,Total 0.3 mg/dL (0.3-1.2); Blood Urea Nitrogen 9 mg/dL (9-23); Calcium 8.6 mg/dL (8.3-10.6); Carbon Dioxide 22.7 mMol/L (20.0-31.0); Chloride 92 mMol/L (98-107); Estimated Creatinine Clearance 61.6 mL/min (>60); Globulin 3.3 gm/dL (2.3-3.5); Osmolality,Calculated 284 (275-295); Potassium 3.8 mMol/L (3.4-5.1); Sodium 127 mMol/L (136-145); Total Protein 6.8 gm/dL (5.7-8.2); Troponin I < 0.002 ng/mL (0.0-0.045); eGFR > 60 See Note
[2024-09-13 12:30] LABS: Glucose 648 mg/dL (74-106)
[2024-09-13 12:48] VITALS: BP 137/76; PULSE 89; RESP 18; TEMP 36.9; O2SAT 96
[2024-09-13] MEDS: INSULIN HUM REGULAR 1 UNIT/0.01 ML (PER UNIT) 10 UNIT SC (12:58)
[2024-09-13 13:31] LABS: Collection Type, Urine Clean Catch
[2024-09-13 14:01] LABS: Amphetamine/Methamp Scrn,U Negative (Negative); Barbiturate Screen,Urine Negative (Negative); Benzodiazepines Screen,Urine Negative (Negative); Benzoylecgonine Screen, Ur Negative (Negative); Fentanyl Screen,Urine Negative (Negative); Opiate Screen,Urine Negative (Negative); THC Screen,Urine Negative (Negative)
[2024-09-13 14:05] LABS: Bacteria,Urine Rare; Bilirubin,Urine Negative (Negative); Blood,Urine Negative (Negative); Budding Yeast,Urine Present; Clarity,Urine Clear (Clear/Hazy); Culture Indicated,Urine Not Indicated; Glucose, Urine 4+ (Negative); Ketones,Urine 1+ (Negative); Leukocyte Esterase,Urine Negative (Negative); Nitrite,Urine Negative (Negative); PH,Urine 6.5 (5.0-7.0); Protein,Urine Negative (Neg - Trace); RBC,Urine < 1 /hpf (0-3); Squamous Epithelial Cell,Urine 2 /hpf (0-5); Urobilinogen,Urine Negative mg/dL (0.0-1.0); WBC,Urine 1 /hpf (0-5)
[2024-09-13 14:06] LABS: Color,Urine Lt-Yellow (Lt Yel-Yel)
[2024-09-13] MEDS: cefTRIAXone 1,000 MG, LIDOCAINE 1% 20 ML 2.1 ML IM (14:40)
[2024-09-13 16:17] VITALS: BP 128/80; PULSE 90; RESP 17; TEMP 36.8; O2SAT 95
[2024-09-13 16:45] LABS: Troponin I < 0.002 ng/mL (0.0-0.045)
== END 2024-09-13 17:08 | disposition home or self-care (01) ==
PROVIDERS: Registered Nurse General Practice; Emergency Provider Emergency Medicine
DX: J18.9 Pneumonia, unspecified organism (principal); E11.65 Type 2 diabetes mellitus with hyperglycemia; R07.9 Chest pain, unspecified; I10 Essential (primary) hypertension; Z59.00 Homelessness unspecified; Z79.4 Long term (current) use of insulin
CPT/HCPCS: 36415; 71045; 80053; 80307; 81001; 84484; 93005; 96372; 99283; J0696; J1815; J3490

== ENCOUNTER 2024-10-31 00:58 | Emergency (ER) | payer MEDICAID, SELFPAY ==
[2024-10-31 01:00] VITALS: PULSE 88; O2SAT 97; BMI 21.7
--- NOTE | 2024-10-31 01:08 | EKG_ITS ---
[facility] Test Date: 2024-10-31 Pat Name: YESSY GUTIERREZ Department: Room: - Gender: Female Certified Coder: : [id number] Requested By: Ramy Jordan Order Number: [id number] Reading MD: Ramy Jordan Measurements Intervals [place] Rate: 103 P: 29 [place]: 121 QRS: 58 QRSD: 80 T: 40 QT: 336 QTc: 441 Interpretive Statements SINUS TACHYCARDIA ABNORMAL RHYTHM ECG Compared to ECG 09/13/2024 11:26:25 Sinus rhythm no longer present /store/S0/[id number]/ecg/[id number].pdf
[2024-10-31 01:15] VITALS: BP 184/85; PULSE 106; RESP 18; TEMP 36.4; O2SAT 99
[2024-10-31] MEDS: DIAZEPAM 5 MG TABLET 10 MG PO (02:04)
--- NOTE | 2024-10-31 04:55 | PD.EDRME ---
Rapid Medical Screening Exam RME Arrival date/time: 10/31/24 00:58 54F with history of DM, HTN, and anxiety presents to ED for not being able to sleep, nightmares, anxiety, CP, and SOB. Chief Complaint: Anxiety Time Seen by Provider: 10/31/24 01:27 Vital signs: Vital Signs Temperature 97.5 F 10/31/24 01:15 Pulse Rate 106 H 10/31/24 01:15 Respiratory Rate 18 10/31/24 01:15 Blood Pressure 184/85 H 10/31/24 01:15 Pulse Oximetry (%) 99 10/31/24 01:15 Oxygen Delivery Method Room Air 10/31/24 01:15
[2024-10-31 07:54] VITALS: BP 178/91; PULSE 107; RESP 18; TEMP 36.5; O2SAT 98
--- NOTE | 2024-10-31 09:03 | EDNOTE_ITS ---
ED Anxiety RME/HPI General Chief Complaint: Anxiety Stated Complaint: ANXIETY, CHEST TIGHTNESS Time Seen by Provider: 10/31/24 01:27 Arrival date/time: 10/31/24 00:58 RME / HPI RME / HPI narrative: 10/31/24 00:58 54F with history of DM, HTN, and anxiety presents to ED for not being able to sleep, nightmares, anxiety, CP, and SOB. DR ZAMARRIPA MAIN ED EVALUATION: 54 year old female with history of depression and anxiety presented to the ER with a cheif complaint of nightmares and difficulty sleeping. Patient is not currently on any medication but has taken Atarax and Bupropion 1 year ago to treat her anxiety and depression. Patient reports to have a upcoming appointment on the to resolve gaining medications from her primary doctor. Related Data Home Medications ?Medication ?Instructions ?Recorded ?Confirmed Hum Insulin Nph/Reg Insulin Hm 25 u subcut AM/PM DIABE YELENA ##0 11/03/09 (Novolin 70/30 100 Units/Ml Via) gabapentin 100 mg capsule 600 mg PO TID PAIN #0 caps 1 09/18/12 atenolol 25 mg tablet (Tenormin) 25 mg PO HS #0 tabs 0 07/23/14 Aspirin (Adult Low Strength Aspir) 81 mg PO QDAY ##30 11/28/16 Atorvastatin Calcium 10 mg PO HS ##30 11/28/16 Citalopram Hydrobromide * (CELEXA 20 mg PO QDAY ##30 0 11/28/16 *) alprazolam 0.25 mg tablet 0.25 mg PO BID ##60 11/28/16 glipizide 5 mg tablet 5 mg PO QDAY ##60 11/28/16 hydrochlorothiazide 25 mg tablet 25 mg PO QDAY ##30 lisinopril 10 mg tablet 10 mg PO QDAY ##30 11/28/16 Previous Rx's ?Medication ?Instructions ?Recorded Hydrocodone/Acetaminophen * (NORCO 1 tab PO Q6H PRN PA IN #28 tabs 05/28/15 5/325 *) Hydrocodone/Acetaminophen * (NORCO 1 - 2 tab PO Q4H [place] N PAIN #20 tabs 05/30/16 5/325 *) empty container (Sharps Container) #1 ea 12/26/23 ibuprofen 800 mg tablet 800 mg PO TID PRN pain #30 t abs 05/15/24 guaifenesin 100 mg/5 mL oral liquid 200 mg (10 mL) PO Q4H PRN cough 09/07/24 #473 mL hydroxyzine HCl 10 mg tablet 10 mg PO TID PRN anxiety #14 tabs 10/31/24 Allergies Allergy/AdvReac Type Severity Reaction Status Date / Time ciprofloxacin Allergy Severe HIVES, Verified 08/15/24 08:58 VOMITING Sulfa (Sulfonamide Allergy Severe ABD PAIN Verified 08/15/24 08:58 Antibiotics) AND VOMITING Review of Systems Review of Systems Systems Reviewed: All systems reviewed, normal except as documented Narrative Review of Systems: Gen: No fever, no chills, no weight loss EYES: No discharge, no visual changes, no pain HEENT: No ear pain, no congestion, no sore throat PULM: No shortness of breath, no cough, no congestion CV: No chest pain, no dyspnea on exertion, no palpitations GI: No nausea, no vomiting, no diarrhea, no pain, no constipation : No frequency, no urgency, no dysuria Musc/skel: No joint pain, no back pain Skin: No rash Psyc: +hallucinations, +depression, +anxiety Heme/Lymph: No easy bleeding or bruising tendencies Neuro: No weakness, no headache Past Medical History Past Medical History CARDIAC: Positive Hypertension MUSCULOSKELETAL: Positive Rheumatoid Arthritis ENDOCRINE: Positive Diabetes Mellitus Type 2 Family History FAMILY HISTORY: Positive Family Cancer (PT'S DAD) Social History SMOKING STATUS: Current every day smoker ED Exam Narrative Physical exam: GENERAL APPEARANCE: alert and oriented x 4, well-developed, well-nourished, no acute distress HEENT: normocephalic, atraumatic NECK: supple LUNGS: no respiratory distress, normal effort HEART: good peripheral perfusion ABDOMEN: non distended EXTREMITIES: atraumatic NEUROLOGIC: awake; alert and oriented x4; cranial nerves II-XII grossly intact PSYCHIATRIC: appropriate mood and affect SKIN: warm, dry, normal color; no rashes Course Quality Measures none Orders Category Date Time Status EKG (ED ONLY) *Do not use* NOW Care 10/31/24 01:08 Completed EKG (ED Only) Stat Exams 10/31/24 01:08 Draft Diazepam [Valium] Med 10/31/24 01:27 Discontinued 10 mg PO X1 ONE Vital Signs Vital signs: Vital Signs Temperature 97.5 F 10/31/24 01:15 Pulse Rate 106 H 10/31/24 01:15 Respiratory Rate 18 10/31/24 01:15 Blood Pressure 184/85 H 10/31/24 01:15 Pulse Oximetry (%) 99 10/31/24 01:15 Oxygen Delivery Method Room Air 10/31/24 01:15 Anxiety MDM Narrative MDM Narrative: Kusum Frazier am scribing for and in the presence of Dr. Zamarripa Patient data External records reviewed:: [facility] previous records and EMS form Clinical information provided by:: patient and EMS Social determinants that could affect healthcare access:: none Patient has the following chronic illnesses:: anxiety, depression How is presenting disease/condition affected by chronic disease/condition?: exacerbated by Medications / Prescriptions Medications or Prescriptions considered but not ordered:: none Medication administrations:: Medication Administration History Discontinued Medications Diazepam (Diazepam 5 Mg Tablet) 10 mg PO X1 ONE Stop: 10/31/24 01:28 Last Admin: 10/31/24 02:04 Dose: 10 mg Documented By: Consultations Consultation(s) initiated? (list below): No Diagnosis Differential diagnosis anxiety: panic disorder, acute anxiety and other (depression) Most likely diagnosis given after review of the tests above:: anxiety Admission Indicated Admission indicated?: not indicated Admission Request Was there a request for admission?: No Disposition Plan Disposition Plan: Discharge Discharge Attestation Discharge Attestation: The patient and all family members were given an opportunity to ask questions and understood the discharge instructions. Discharge instructions specifically effects, indications for sooner follow up or return to the emergency department, and the expected course of current diagnosis. Patient condition: Stable Discharge Plan Plan Patient Disposition: HOME (Self Care) Prescriptions/Referrals Prescriptions/Med Rec: New hydroxyzine HCl 10 mg tablet 10 mg PO TID PRN (Reason: anxiety) Qty: 14 0RF No Action Hum Insulin Nph/Reg Insulin Hm (Novolin 70/30 100 Units/Ml Via) 10 ML VIAL 25 u Sub-Q AM/PM Qty: 0 gabapentin 100 MG capsule 600 mg PO TID Qty: 0 atenolol [Tenormin] 25 MG tablet 25 mg PO HS Qty: 0 Hydrocodone/Acetaminophen * (NORCO 5/325 *) 1 TAB tablet 1 tab PO Q6H PRN (Reason: PAIN) Qty: 28 0RF Hydrocodone/Acetaminophen * (NORCO 5/325 *) 1 TAB tablet 1 - 2 tab PO Q4H PRN (Reason: PAIN) Qty: 20 0RF Rx Instructions: FOR PAIN Aspirin (Adult Low Strength Aspir) 81 MG TABLET.DR 81 mg PO QDAY Qty: 30 Atorvastatin Calcium 10 MG tablet 10 mg PO HS Qty: 30 alprazolam 0.25 MG tablet 0.25 mg PO BID Qty: 60 lisinopril 10 MG tablet 10 mg PO QDAY Qty: 30 hydrochlorothiazide 25 MG tablet 25 mg PO QDAY Qty: 30 glipizide 5 MG tablet 5 mg PO QDAY Qty: 60 Citalopram Hydrobromide * (CELEXA *) 20 MG tablet 20 mg PO QDAY Qty: 30 (DME) Sharps Container Misc See Rx Instructions .Route Qty: 1 0RF Rx Instructions: As directed ibuprofen 800 mg tablet 800 mg PO TID PRN (Reason: pain) Qty: 30 0RF guaifenesin 100 mg/5 mL liquid 200 mg PO Q4H PRN (Reason: cough) Qty: 473 0RF Referrals: Pranay Hatch MD [Primary Care Provider] - In 1 week Problem List Clinical Impression: Anxiety Patient/Caregiver Discharge Instructions Education Materials: ED Anxiety Reaction Additional Instructions: Follow up as scheduled for refill of citalopram Print Language: Mosotho Stand Alone Forms: Roberta Award Info., Patient Portal Info Letter
== END 2024-10-31 10:02 | disposition home or self-care (01) ==
PROVIDERS: Emergency Provider Emergency Medicine; PCP Internal Medicine
DX: F41.9 Anxiety disorder, unspecified (principal); E11.9 Type 2 diabetes mellitus without complications; I10 Essential (primary) hypertension; F32.A Depression, unspecified
CPT/HCPCS: 93005; 99283; A9270

== ENCOUNTER 2024-10-31 14:35 | Emergency (ER) | payer MEDICAID, SELFPAY ==
[2024-10-31 15:04] VITALS: BP 158/73; PULSE 110; RESP 18; TEMP 36.6; O2SAT 99
--- NOTE | 2024-10-31 15:28 | PD.EDRME ---
Rapid Medical Screening Exam RME Arrival date/time: 10/31/24 14:35 This is a 54-year-old female that comes in with complaints of chest pain and anxiety. Patient states she currently lives in a homeless custodial. Patient states she she has had a lot of things going on recently and they anxiety is catching up with her. Patient states she would like to talk to a mental health social worker. Patient also has a history of anxiety high blood pressure, high cholesterol, neuropathy, diabetes. I have greeted and performed a focused initial assessment of this patient. Initial appropriate labs ordered at this time. A comprehensive ED assessment and evaluation of the patient and analysis of all test and completion of medical decision making process will be conducted by additional ED provider. Chief Complaint: Chest Pain Time Seen by Provider: 10/31/24 15:04 Vital signs: Vital Signs Temperature 97.8 F 10/31/24 15:04 Pulse Rate 110 H 10/31/24 15:04 Respiratory Rate 18 10/31/24 15:04 Blood Pressure 158/73 H 10/31/24 15:04 Pulse Oximetry (%) 99 10/31/24 15:04 Oxygen Delivery Method Room Air 10/31/24 15:04
--- NOTE | 2024-10-31 15:30 | XR_ITS ---
Exam: Chest PA, lateral 2 views Technique: Chest upright PA lateral 2 views Date and time of exam: 10/31/2024, 3:40 PM INDICATION: Chest pain COMPARISON: 09/13/2024 Findings: Normal heart size. No mediastinal adenopathy. No acute fracture No pulmonary edema or pneumonia. Impression: No active disease.
[2024-10-31 15:47] LABS: Basophils % (Auto) 1 % (0-2.5); Eosinophils # (Auto) 0.2 Thou/mm3 (0.0-0.5); Eosinophils % (Auto) 2 % (0-10); Hematocrit 34.5 % (36.0-46.0); Hemoglobin 11.2 g/dL (12.0-16.0); Immature Granulocytes % (Auto) 0 % (0-0); Immature Granulocytes Auto 0.02 Thou/mm3 (0.00-0.00); Lymphocytes # (Auto) 2.6 Thou/mm3 (1.0-4.8); Lymphocytes % (Auto) 33 % (10-50); Mean Corpuscular HGB Conc 32.5 g/dl (31.0-37.0); Mean Corpuscular Hemoglobin 27.7 pg (25.0-35.0); Mean Corpuscular Volume 85 fL (80-100); Monocytes # (Auto) 0.5 Thou/mm3 (0.0-0.8); Monocytes % (Auto) 6 % (0-12); Neutrophils # (Auto) 4.7 Thou/mm3 (1.8-7.7); Neutrophils % (Auto) 59 % (37-80); Nucleated Red Blood Cell % 0 /100 WBC (0); Platelet Count 356 Thou/mm3 (140-440); RDW Standard Deviation 49.2 fL (36.4-46.3); Red Blood Count 4.04 Miln/mm3 (4.00-5.20)
[2024-10-31 16:08] LABS: B-Type Natriuretic Peptide < 20 pg/mL (0-100)
[2024-10-31 16:13] LABS: Alanine Aminotransferase 12 U/L (10-49); Albumin, Serum 4.6 gm/dL (3.5-5.0); Albumin/Globulin Ratio 1.2 (1.2-2.2); Alcohol, Blood Medical < 3.0 mg/dL (0-10.0); Alkaline Phosphatase 107 U/L (46-116); Anion Gap 9 (7-16); Aspartate Amino Transferase 15 U/L (0-34); BUN/Creatinine Ratio 18 Ratio (12-20); Bilirubin,Total 1.3 mg/dL (0.3-1.2); Blood Urea Nitrogen 18 mg/dL (9-23); Calcium 9.9 mg/dL (8.3-10.6); Calcium (Corrected) 9.9 mg/dL (8.5-10.1); Carbon Dioxide 23.5 mMol/L (20.0-31.0); Chloride 107 mMol/L (98-107); Globulin 3.7 gm/dL (2.3-3.5); Glucose 217 mg/dL (74-106); Osmolality,Calculated 286 (275-295); Sodium 139 mMol/L (136-145); Total Protein 8.3 gm/dL (5.7-8.2); Troponin I < 0.002 ng/mL (0.0-0.045); eGFR > 60 See Note
[2024-10-31 16:53] LABS: Amphetamine/Methamp Scrn,U Positive (Negative); Barbiturate Screen,Urine Negative (Negative); Benzodiazepines Screen,Urine Positive (Negative); Benzoylecgonine Screen, Ur Negative (Negative); Fentanyl Screen,Urine Negative (Negative); Opiate Screen,Urine Negative (Negative); THC Screen,Urine Negative (Negative)
--- NOTE | 2024-10-31 17:37 | PC.CC ---
Promotions Representative provided Pt with Mental Health resources, community resources, and food/water. Promotions Representative educated Pt on available transient resources in local community and provided local clinics address and number in which Pt will be able to receive medical care and medications.
--- NOTE | 2024-10-31 18:08 | EDNOTE_ITS ---
<Statement entered by Jazz Pena MD - 11/01/24 15:10> As co-signing physician, I was present and available for consult prn. I concur with the plan and care as documented by the midlevel provider. ED General RME/HPI General Chief complaint: Chest Pain Stated complaint: CHEST PAIN Time Seen by Provider: 10/31/24 15:04 Arrival date/time: 10/31/24 14:35 RME / HPI RME / HPI narrative: 54-year-old female that comes in with complaints of chest pain and anxiety. Patient states she currently lives in a homeless snf. Patient states she she has had a lot of things going on recently and they anxiety is catching up with her. Patient states she would like to talk to a social media job titles. Patient also has a history of anxiety high blood pressure, high cholesterol, neuropathy, diabetes. Patient admits to abusing meth and benzo. Denies any homicidal or suicidal ideation. Related Data Home Medications ?Medication ?Instructions ?Recorded ?Confirmed Hum Insulin Nph/Reg Insulin Hm 25 u subcut AM/PM DIABE YELENA ##0 11/03/09 (Novolin 70/30 100 Units/Ml Via) gabapentin 100 mg capsule 600 mg PO TID PAIN #0 caps 1 09/18/12 atenolol 25 mg tablet (Tenormin) 25 mg PO HS #0 tabs 0 07/23/14 Aspirin (Adult Low Strength Aspir) 81 mg PO QDAY ##30 11/28/16 Atorvastatin Calcium 10 mg PO HS ##30 11/28/16 Citalopram Hydrobromide * (CELEXA 20 mg PO QDAY ##30 0 11/28/16 *) alprazolam 0.25 mg tablet 0.25 mg PO BID ##60 11/28/16 glipizide 5 mg tablet 5 mg PO QDAY ##60 11/28/16 hydrochlorothiazide 25 mg tablet 25 mg PO QDAY ##30 lisinopril 10 mg tablet 10 mg PO QDAY ##30 11/28/16 Previous Rx's ?Medication ?Instructions ?Recorded Hydrocodone/Acetaminophen * (NORCO 1 tab PO Q6H PRN PA IN #28 tabs 05/28/15 5/325 *) Hydrocodone/Acetaminophen * (NORCO 1 - 2 tab PO Q4H GA N PAIN #20 tabs 05/30/16 5/325 *) empty container (Sharps Container) #1 ea 12/26/23 ibuprofen 800 mg tablet 800 mg PO TID PRN pain #30 t abs 05/15/24 guaifenesin 100 mg/5 mL oral liquid 200 mg (10 mL) PO Q4H PRN cough 09/07/24 #473 mL hydroxyzine HCl 10 mg tablet 10 mg PO TID PRN anxiety #14 tabs 10/31/24 Allergies Allergy/AdvReac Type Severity Reaction Status Date / Time ciprofloxacin Allergy Severe HIVES, Verified 10/31/24 14:37 VOMITING Sulfa (Sulfonamide Allergy Severe ABD PAIN Verified 10/31/24 14:37 Antibiotics) AND VOMITING Review of Systems Review of Systems Narrative Review of Systems: Review of system reviewed and within normal limits except mentioned in HPI ED Exam Narrative Physical exam: VITAL SIGNS: Reviewed. GENERAL APPEARANCE: Alert and interactive, follows commands, no acute distress, anxious HEAD AND FACE: Non-traumatic. ENT: PERRL, pink conjunctivitis, eyelid no trauma, Mucous membrane moist. NECK: Supple, nontender, no nuchal rigidity. CHEST: No tenderness, no crepitus, no paradoxical movement, no retractions. LUNGS: Clear, well ventilated, symmetric, no rales, no wheezing, no ronchi, no stridor, good breath sounds bilaterally. HEART: Regular rate, regular rhythm, no murmur, no gallops. ABDOMEN: Soft, positive bowel sounds, nondistended, no guarding, nontender, no rebound, no masses, RECTAL: Deferred. GENITAL: Deferred. NEUROLOGICAL: Gross motor function intact sensory function intact, Appropriate for age. MUSCULOSKELETAL: low back nontender, full range of motion. EXTREMITIES: Nontender, full range of motion. SKIN: Color pink, dry, no rash, no lacerations, no abrasions, no contusions. LYMPHATICS: Deferred. Course Quality Measures none Orders Category Date Time Status Consult Commissioning Agent NOW Care 10/31/24 15:40 Active EKG (ED ONLY) *Do not use* NOW Care 10/31/24 15:30 Completed EKG (ED Only) Stat Exams 10/31/24 15:30 Ordered XR chest 2V Stat Exams 10/31/24 15:30 Completed Alcohol, Blood Medical Stat Lab 10/31/24 15:39 Completed BNP [B-Type Natriuretic Peptide] Stat Lab 10/31/24 15:39 Completed CBC Stat Lab 10/31/24 15:39 Completed Comprehensive Metabolic Panel Stat Lab 10/31/24 15:39 Completed Drug Screen,Urine Stat Lab 10/31/24 15:55 Completed Troponin I Stat Lab 10/31/24 15:39 Completed Vital Signs Vital signs: Vital Signs Temperature 97.8 F 10/31/24 15:04 Pulse Rate 110 H 10/31/24 15:04 Respiratory Rate 18 10/31/24 15:04 Blood Pressure 158/73 H 10/31/24 15:04 Pulse Oximetry (%) 99 10/31/24 15:04 Oxygen Delivery Method Room Air 10/31/24 15:04 MDM Patient data External records reviewed:: None Clinical information provided by:: patient Social determinants that could affect healthcare access:: substance use Patient has the following chronic illnesses:: Homelessness How is presenting disease/condition affected by chronic disease/condition?: e xacerbated by Evaluation data The following diagnostics were reviewed and interpreted by me:: lab results and radiology exam(s) Lab and/or radiology exams considered but not ordered:: None Interpretation Summary: See results in MDM Medications Medications considered but not ordered:: None Medication administrations:: None Consultations Consultation(s) initiated? (list below): No Diagnosis Differential Diagnosis ED Complaint MDM: Anxiety, methamphetamine abuse, homelessness Most likely diagnosis given after review of the tests above:: anxiety Admission Indicated Admission indicated?: indicated Explain why admission is indicated or not indicated:: None Admission Request Was there a request for admission?: No Disposition Plan Disposition Plan: Discharge Discharge Attestation Discharge Attestation: The patient was given an opportunity to ask questions and understood the discharge instructions. Discharge instructions specifically effects, indications for sooner follow up or return to the emergency department, and the expected course of current diagnosis. Patient condition: Stable Medical Decision Making MDM Narrative MDM Narrative: 54-year-old female that comes in with complaints of chest pain and anxiety. Patient states she currently lives in a homeless snf. Patient states she she has had a lot of things going on recently and they anxiety is catching up with her. Patient states she would like to talk to a social media job titles. Patient also has a history of anxiety high blood pressure, high cholesterol, neuropathy, diabetes. Patient admits to abusing meth and benzo. Denies any homicidal or suicidal ideation. Patient tested positive for benzo and methamphetamine. The rest of the labs unremarkable. I personally reviewed and interpreted the x-ray of this patient. There is no acute abnormalities found, no infiltrates no pneumothorax no hemothorax normal chest x-ray. Review of other structures was without significant abnormal findings also. I additionally reviewed the radiologist report and agree with the interpretation. Patient was seen by social media job titles in the emergency room, was given a lot of resources. Patient appears nontoxic and hemodynamically stable. Patient discharged home and instructed to follow-up with primary care provider in 24 to 48 hours. Instructed to return to the emergency department immediately if worsening of symptoms Differential Diagnosis Differential Diagnosis: Anxiety, methamphetamine abuse, homelessness Lab Data 10/31/24 15:39 10/31/24 15:39 Labs: Lab Results 10/31/24 10/31/24 Range/Units 15:39 15:55 WBC 8.0 (3.6-11.0) Thou/mm3 RBC 4.04 (4.00-5.20) Miln/mm3 Hgb 11.2 L (12.0-16.0) g/dL Hct 34.5 L (36.0-46.0) % MCV 85 (80-100) fL MCH 27.7 (25.0-35.0) pg MCHC 32.5 (31.0-37.0) g/dl RDW Std Deviation 49.2 H (36.4-46.3) fL Plt Count 356 (140-440) Thou/mm3 Neut % (Auto) 59 (37-80) % Lymph % (Auto) 33 (10-50) % Storey % (Auto) 6 (0-12) % Eos % (Auto) 2 (0-10) % Baso % (Auto) 1 (0-2.5) % Neut # (Auto) 4.7 (1.8-7.7) Thou/mm3 Lymph # (Auto) 2.6 (1.0-4.8) Thou/mm3 Storey # (Auto) 0.5 (0.0-0.8) Thou/mm3 Eos # (Auto) 0.2 (0.0-0.5) Thou/mm3 Baso # (Auto) 0.0 (0.0-0.2) Thou/mm3 Immature Gran # (Auto) 0.02 H (0.00-0.00) Thou/mm3 Absolute Nucleated RBC 0.00 (0.00-0.00) Thou/mm3 Immature Gran % 0 (0-0) % Nucleated RBC % 0 (0) /100 WBC Sodium 139 (136-145) mMol/L Potassium 4.0 (3.4-5.1) mMol/L Chloride 107 (98-107) mMol/L Carbon Dioxide 23.5 (20.0-31.0) mMol/L Anion Gap 9 (7-16) BUN 18 (9-23) mg/dL Creatinine 1.0 (0.6-1.3) mg/dL Estim Creat Clear Calc Not Performed. eGFR > 60 (60 - ) See Note BUN/Creatinine Ratio 18 (12-20) Ratio Glucose 217 H (74-106) mg/dL Calculated Osmolality 286 (275-295) Calcium 9.9 (8.3-10.6) mg/dL Corrected Calcium 9.9 (8.5-10.1) mg/dL Total Bilirubin 1.3 H (0.3-1.2) mg/dL AST 15 (0-34) U/L ALT 12 (10-49) U/L Alkaline Phosphatase 107 (46-116) U/L Troponin I < 0.002 (0.0-0.045) ng/mL B-Natriuretic Peptide < 20 (0-100) pg/mL Total Protein 8.3 H (5.7-8.2) gm/dL Albumin 4.6 (3.5-5.0) gm/dL Globulin 3.7 H (2.3-3.5) gm/dL Albumin/Globulin Ratio 1.2 (1.2-2.2) Urine Opiates Screen Negative (Negative) Urine Fentanyl Screen Negative (Negative) Ur Barbiturates Screen Negative (Negative) U Amphetamin/Meth Scrn Positive A (Negative) U Benzodiazepines Scrn Positive A (Negative) U Cocaine Metab Screen Negative (Negative) U Marijuana (THC) Screen Negative (Negative) Ethyl Alcohol < 3.0 (0-10.0) mg/dL Discharge Plan Plan Patient Disposition: HOME (Self Care) Disposition Comment: Stable Prescriptions/Referrals Prescriptions/Med Rec: No Action Hum Insulin Nph/Reg Insulin Hm (Novolin 70/30 100 Units/Ml Via) 10 ML VIAL 25 u Sub-Q AM/PM Qty: 0 gabapentin 100 MG capsule 600 mg PO TID Qty: 0 atenolol [Tenormin] 25 MG tablet 25 mg PO HS Qty: 0 Hydrocodone/Acetaminophen * (NORCO 5/325 *) 1 TAB tablet 1 tab PO Q6H PRN (Reason: PAIN) Qty: 28 0RF Hydrocodone/Acetaminophen * (NORCO 5/325 *) 1 TAB tablet 1 - 2 tab PO Q4H PRN (Reason: PAIN) Qty: 20 0RF Rx Instructions: FOR PAIN Aspirin (Adult Low Strength Aspir) 81 MG TABLET.DR 81 mg PO QDAY Qty: 30 Atorvastatin Calcium 10 MG tablet 10 mg PO HS Qty: 30 alprazolam 0.25 MG tablet 0.25 mg PO BID Qty: 60 lisinopril 10 MG tablet 10 mg PO QDAY Qty: 30 hydrochlorothiazide 25 MG tablet 25 mg PO QDAY Qty: 30 glipizide 5 MG tablet 5 mg PO QDAY Qty: 60 Citalopram Hydrobromide * (CELEXA *) 20 MG tablet 20 mg PO QDAY Qty: 30 (DME) Sharps Container Misc See Rx Instructions .Route Qty: 1 0RF Rx Instructions: As directed ibuprofen 800 mg tablet 800 mg PO TID PRN (Reason: pain) Qty: 30 0RF guaifenesin 100 mg/5 mL liquid 200 mg PO Q4H PRN (Reason: cough) Qty: 473 0RF hydroxyzine HCl 10 mg tablet 10 mg PO TID PRN (Reason: anxiety) Qty: 14 0RF Referrals: Elie Manrique MD [Primary Care Provider] - In 1 week Problem List Clinical Impression: Anxiety, Methamphetamine abuse Patient/Caregiver Discharge Instructions Discharge Activity: activity as tolerated Education Materials: ED Anxiety Reaction Additional Instructions: Thank you for the opportunity for serving you today. You are stable for discharged . You are advised to: Follow-up with your PCP in 1 to 2 days Return to ED for worsening of symptoms Increase oral fluids Print Language: Welsh Stand Alone Forms: Roberta Award Info., Patient Portal Info Letter PA/EFFIE Supervising Physician PA/EFFIE Supervising Physician: MD Jean
== END 2024-10-31 19:24 | disposition home or self-care (01) ==
PROVIDERS: Nurse Practitioner Family; Emergency Provider Emergency Medicine; PCP Family Medicine
DX: F41.9 Anxiety disorder, unspecified (principal); F15.10 Other stimulant abuse, uncomplicated; R07.9 Chest pain, unspecified; Z59.01 Sheltered homelessness; E78.00 Pure hypercholesterolemia, unspecified; E11.40 Type 2 diabetes mellitus with diabetic neuropathy, unspecified
CPT/HCPCS: 36415; 71046; 80053; 80307; 80320; 83880; 84484; 85025; 93005; 99283; G0480

== ENCOUNTER 2025-01-02 11:44 | Emergency (ER) | payer MEDICAID, SELFPAY ==
[2025-01-02 11:55] VITALS: BP 155/81; PULSE 89; RESP 18; TEMP 37.2; O2SAT 100; BMI 20.1
--- NOTE | 2025-01-02 12:16 | PD.EDABDPN ---
ED Abdominal Pain RME/HPI General Chief Complaint: Abdominal Pain Stated complaint: Feel dehydrated, abdominal pain Time seen by provider: 01/02/25 11:54 Arrival date/time: 01/02/25 11:44 Source: patient Mode of arrival: ambulatory Limitations: no limitations RME / HPI RME / HPI narrative: 54-year-old female presents for evaluation of dysuria x 3 days. She notes suprapubic discomfort that is exacerbated with urination. Patient notes that she feels dehydrated . She denies nausea, fever, back pain, hematuria, vomiting, dysuria, diarrhea, blood in her stools, headache, chest pain, and vaginal bleeding. Patient reports that she is currently undomiciled and living in her vehicle. MD complaint: abdominal pain Location: suprapubic Severity: moderate Quality: aching and dull Radiation: none Related Data Home Medications ?Medication ?Instructions ?Recorded ?Confirmed Hum Insulin Nph/Reg Insulin Hm 25 u subcut AM/PM DIABETES ##0 11/03/09 (Novolin 70/30 100 Units/Ml Via) gabapentin 100 mg capsule 600 mg PO TID PAIN #0 caps 07/18/13 atenolol 25 mg tablet (Tenormin) 25 mg PO HS #0 tabs 07/23/14 Aspirin (Adult Low Strength Aspir) 81 mg PO QDAY ##30 11/28/16 Atorvastatin Calcium 10 mg PO HS ##30 11/28/16 Citalopram Hydrobromide * (CELEXA 20 mg PO QDAY ##30 11/28/16 *) alprazolam 0.25 mg tablet 0.25 mg PO BID ##60 11/28/16 glipizide 5 mg tablet 5 mg PO QDAY ##60 11/28/16 hydrochlorothiazide 25 mg tablet 25 mg PO QDAY ##30 11/28/16 lisinopril 10 mg tablet 10 mg PO QDAY ##30 11/28/16 Previous Rx's ?Medication ?Instructions ?Recorded Hydrocodone/Acetaminophen * (NORCO 1 tab PO Q6H PRN PAIN #28 tabs 05/28/15 5/325 *) Hydrocodone/Acetaminophen * (NORCO 1 - 2 tab PO Q4H PRN PAIN #20 tabs 05/30/16 5/325 *) empty container (Sharps Container) #1 ea 12/26/23 ibuprofen 800 mg tablet 800 mg PO TID PRN pain #30 tabs 05/15/24 guaifenesin 100 mg/5 mL oral liquid 200 mg (10 mL) PO Q4H PRN cough 09/07/24 #473 mL hydroxyzine HCl 10 mg tablet 10 mg PO TID PRN anxiety #14 tabs 10/31/24 Allergies Allergy/AdvReac Type Severity Reaction Status Date / Time ciprofloxacin Allergy Severe HIVES, Verified 01/03/25 11:28 VOMITING Sulfa (Sulfonamide Allergy Severe ABD PAIN Verified 01/03/25 11:28 Antibiotics) AND VOMITING Review of Systems Constitutional Constitutional: Denies body ache(s), Denies chills, Denies fever(s) and Denies headache(s) Eyes Eyes: Denies blurry vision and Denies change in vision ENT Ears, Nose, Mouth, and Throat: Denies facial pain and Denies headache(s) Cardiovascular Cardiovascular: Denies chest pain, Denies dyspnea and Denies leg edema Respiratory Respiratory: Denies cough, Denies dyspnea, Denies hemoptysis and Denies wheezing Gastrointestinal Gastrointestinal: Reports abdominal pain, Denies cramping, Denies nausea and Denies vomiting Genitourinary Genitourinary: Reports dysuria, Denies flank pain, Denies hematuria and Denies vaginal discharge Musculoskeletal Musculoskeletal: Denies back pain, Denies stiffness and Denies tingling Integumentary/Breasts Skin/Breast: Denies rash and Denies wounds Neurologic Neurologic: Denies headache(s) and Denies tingling Allergic/Immunologic Allergic/Immunologic: Denies wheezing Past Medical History Past Medical History CARDIAC: Positive Hypertension; Negative Congestive Heart Failure RESPIRATORY: Negative Chronic Obstructive Pulmonary Disease (COPD) GENITOURINARY: Negative Renal Disease MUSCULOSKELETAL: Positive Rheumatoid Arthritis ENDOCRINE: Positive Diabetes Mellitus Type 2; Negative Diabetes Mellitus Type 1 Family History FAMILY HISTORY: Positive Family Cancer (PT'S DAD) Social History SMOKING STATUS: Current every day smoker ED Exam General Limitations: Present no limitations General appearance: Present alert Head Head exam: Present atraumatic and normocephalic Eye Eye exam: Present normal appearance and EOMI; Absent scleral icterus ENT ENT exam: Present normal oropharynx and mucous membranes moist Neck Neck exam: Present normal inspection and full ROM Chest Chest inspection: Present normal inspection and symmetric chest wall rise Respiratory Respiratory exam: Present normal lung sounds bilaterally; Absent respiratory distress Cardiovascular Cardiovascular exam: Present regular rate and +S1 Abdominal Exam Abdominal exam: Present soft and normal bowel sounds; Absent distention, tenderness or rebound Extremities Exam Extremities exam: Present normal inspection and full ROM Back Exam Back exam: Absent CVA tenderness (R) or CVA tenderness (L) Neurological Exam Neurological exam: Present alert Psychiatric Psychiatric exam: Present agitated Skin Skin exam: Present warm, dry and normal color Course Quality Measures none Orders Category Date Time Status Encourage Fluid Intake NOW Care 01/02/25 12:14 Completed UA, C/S IF [Urinalysis, C/S if Indicated] Stat Lab 01/02/25 12:41 Completed Vital Signs Vital signs: Vital Signs Temperature 98.9 F 01/02/25 11:55 Pulse Rate 89 01/02/25 11:55 Respiratory Rate 18 01/02/25 11:55 Blood Pressure 155/81 H 01/02/25 11:55 Pulse Oximetry (%) 100 01/02/25 11:55 Oxygen Delivery Method Room Air 01/02/25 11:55 Pulse ox 100% on room air, within normal limits. Abdominal Pain MDM MDM Narrative MDM Narrative:: 54-year-old, undomiciled female presented for evaluation of suprapubic discomfort. Vital signs overall reassuring. Unremarkable physical exam. UA showed no sign of infection and no hematuria therefore less concern for pyelonephritis and nephrolithiasis at this time. Patient does not fit the clinical criteria of sepsis. Patient tolerating p.o. fluids in the department. Ultimately she was discharged home with plan to follow-up outpatient with primary care within the next week for reevaluation. Patient data External records reviewed:: [facility] previous records Clinical information provided by:: patient Social determinants that could affect healthcare access:: housing Patient has the following chronic illnesses:: Homelessness, diabetes, hypertension. How is presenting disease/condition affected by chronic disease/condition?: exacerbated by Evaluation data The following diagnostics were reviewed and interpreted by me:: lab results Lab and/or radiology exams considered but not ordered:: Imaging considered not ordered. Interpretation Summary: hCG negative. No infection on UA. No hematuria on UA. Medications / Prescriptions Medications or Prescriptions considered but not ordered:: Considered not ordered. Medication administrations:: Considered not ordered. Consultations Consultation(s) initiated? (list below): No Diagnosis Differential diagnosis abdominal pain: abdominal pain, calculus of kidney and other (Cystitis, dehydration.) Most likely diagnosis given after review of the tests above:: Suprapubic discomfort. Admission Indicated Admission indicated?: not indicated Admission Request Was there a request for admission?: No Disposition Plan Disposition Plan: Discharge Discharge Attestation Discharge Attestation: The patient and all family members were given an opportunity to ask questions and understood the discharge instructions. Discharge instructions specifically effects, indications for sooner follow up or return to the emergency department, and the expected course of current diagnosis. Patient condition: Stable Discharge Plan Plan Patient Disposition: HOME (Self Care) Discharge Disposition comment: stable Prescriptions/Referrals Prescriptions/Med Rec: No Action Hum Insulin Nph/Reg Insulin Hm (Novolin 70/30 100 Units/Ml Via) 10 ML VIAL 25 u Sub-Q AM/PM Qty: 0 gabapentin 100 MG capsule 600 mg PO TID Qty: 0 atenolol [Tenormin] 25 MG tablet 25 mg PO HS Qty: 0 Hydrocodone/Acetaminophen * (NORCO 5/325 *) 1 TAB tablet 1 tab PO Q6H PRN (Reason: PAIN) Qty: 28 0RF Hydrocodone/Acetaminophen * (NORCO 5/325 *) 1 TAB tablet 1 - 2 tab PO Q4H PRN (Reason: PAIN) Qty: 20 0RF Rx Instructions: FOR PAIN Aspirin (Adult Low Strength Aspir) 81 MG TABLET.DR 81 mg PO QDAY Qty: 30 Atorvastatin Calcium 10 MG tablet 10 mg PO HS Qty: 30 alprazolam 0.25 MG tablet 0.25 mg PO BID Qty: 60 lisinopril 10 MG tablet 10 mg PO QDAY Qty: 30 hydrochlorothiazide 25 MG tablet 25 mg PO QDAY Qty: 30 glipizide 5 MG tablet 5 mg PO QDAY Qty: 60 Citalopram Hydrobromide * (CELEXA *) 20 MG tablet 20 mg PO QDAY Qty: 30 (DME) Sharps Container Misc See Rx Instructions .Route Qty: 1 0RF Rx Instructions: As directed ibuprofen 800 mg tablet 800 mg PO TID PRN (Reason: pain) Qty: 30 0RF guaifenesin 100 mg/5 mL liquid 200 mg PO Q4H PRN (Reason: cough) Qty: 473 0RF hydroxyzine HCl 10 mg tablet 10 mg PO TID PRN (Reason: anxiety) Qty: 14 0RF Referrals: No Primary/Family,Physician [Primary Care Provider] - In 1 week Problem List Clinical Impression: Dysuria Patient/Caregiver Discharge Instructions Education Materials: ED Dysuria, Uncertain Cause (Adult) Additional Instructions: No UTI on UA today. Continue to hydrate well with water. Follow-up with primary care within the next week for reevaluation. Return to the ED if your symptoms worsen or change. Print Language: Hebrew Stand Alone Forms: Roberta Award Info., Patient Portal Info Letter PA/TAN ROOM SUPERVISOR Supervising Physician PA/TAN ROOM SUPERVISOR Supervising Physician: Dr. Hickman
[2025-01-02 13:17] LABS: Collection Type, Urine Clean Catch
[2025-01-02 13:39] LABS: Bilirubin,Urine Negative (Negative); Blood,Urine Negative (Negative); Clarity,Urine Clear (Clear/Hazy); Color,Urine Colorless (Lt Yel-Yel); Culture Indicated,Urine Not Indicated; Glucose, Urine 4+ (Negative); Ketones,Urine Negative (Negative); Leukocyte Esterase,Urine Negative (Negative); Nitrite,Urine Negative (Negative); PH,Urine 6.5 (5.0-7.0); Protein,Urine Negative (Neg - Trace); RBC,Urine 1 /hpf (0-3); Specific Gravity,Urine 1.026 (1.001-1.035); Squamous Epithelial Cell,Urine 2 /hpf (0-5); Urobilinogen,Urine Negative mg/dL (0.0-1.0); WBC,Urine 1 /hpf (0-5)
== END 2025-01-02 14:40 | disposition home or self-care (01) ==
PROVIDERS: Physician Assistant; Emergency Provider Emergency Medicine
DX: R30.0 Dysuria (principal); Z59.02 Unsheltered homelessness
CPT/HCPCS: 81001; 99283

== ENCOUNTER 2025-01-03 11:25 | Emergency (ER) | payer MEDICAID, SELFPAY ==
[2025-01-03 11:26] VITALS: BMI 20.1
[2025-01-03 11:34] VITALS: BP 156/75; PULSE 93; RESP 18; TEMP 36.7; O2SAT 100
--- NOTE | 2025-01-03 11:50 | EDNOTE_ITS ---
ED Fall Injury RME/HPI General Chief Complaint: Fall Stated Complaint: PUSHED FROM BEHIND TODAY, SLIPPED & FELL Time Seen by Provider: 01/03/25 11:43 Arrival date/time: 01/03/25 11:25 Limitations: no limitations RME / HPI RME / HPI Narrative: 54-year-old female is here today after she had a ground-level, mechanical, fall 2 hours prior to arrival. She states she was walking and tripped. She struck her left anterior knee and has a scrape. She is self ambulating without assistance. Gait is stable. She has no gross deformities. Denies any head strike, neck, or back injury. She has no other acute complaints. Related Data Home Medications ?Medication ?Instructions ?Recorded ?Confirmed Hum Insulin Nph/Reg Insulin Hm 25 u subcut AM/PM DIABE YELENA ##0 11/03/09 (Novolin 70/30 100 Units/Ml Via) gabapentin 100 mg capsule 600 mg PO TID PAIN #0 caps 1 09/18/12 atenolol 25 mg tablet (Tenormin) 25 mg PO HS #0 tabs 0 07/23/14 Aspirin (Adult Low Strength Aspir) 81 mg PO QDAY ##30 11/28/16 Atorvastatin Calcium 10 mg PO HS ##30 11/28/16 Citalopram Hydrobromide * (CELEXA 20 mg PO QDAY ##30 0 11/28/16 *) alprazolam 0.25 mg tablet 0.25 mg PO BID ##60 11/28/16 glipizide 5 mg tablet 5 mg PO QDAY ##60 11/28/16 hydrochlorothiazide 25 mg tablet 25 mg PO QDAY ##30 lisinopril 10 mg tablet 10 mg PO QDAY ##30 11/28/16 Previous Rx's ?Medication ?Instructions ?Recorded Hydrocodone/Acetaminophen * (NORCO 1 tab PO Q6H PRN PA IN #28 tabs 05/28/15 5/325 *) Hydrocodone/Acetaminophen * (NORCO 1 - 2 tab PO Q4H PA N PAIN #20 tabs 05/30/16 5/325 *) empty container (Sharps Container) #1 ea 12/26/23 ibuprofen 800 mg tablet 800 mg PO TID PRN pain #30 t abs 10/25/24 guaifenesin 100 mg/5 mL oral liquid 200 mg (10 mL) PO Q4H PRN cough 09/07/24 #473 mL hydroxyzine HCl 10 mg tablet 10 mg PO TID PRN anxiety #14 tabs 10/31/24 Allergies Allergy/AdvReac Type Severity Reaction Status Date / Time ciprofloxacin Allergy Severe HIVES, Verified 01/03/25 11:28 VOMITING Sulfa (Sulfonamide Allergy Severe ABD PAIN Verified 01/03/25 11:28 Antibiotics) AND VOMITING Review of Systems Review of Systems Systems Reviewed: All systems reviewed, normal except as documented ED Exam General Limitations: Present no limitations General appearance: Present alert and in no apparent distress Head Head exam: Present atraumatic Eye Eye exam: Present normal appearance, PERRL and EOMI ENT ENT exam: Present normal exam, normal oropharynx and mucous membranes moist Neck Neck exam: Present normal inspection, full ROM and trachea midline Chest Chest inspection: Present normal inspection and symmetric chest wall rise Respiratory Respiratory exam: Present normal lung sounds bilaterally Cardiovascular Cardiovascular exam: Present regular rate, normal rhythm and normal heart sounds Abdominal Exam Abdominal exam: Present soft and normal bowel sounds Extremities Exam Extremities exam: Present normal inspection and full ROM Back Exam Back exam: Present normal inspection and full ROM Neurological Exam Neurological exam: Present alert, oriented X3 and CN II-XII intact Psychiatric Psychiatric exam: Present normal affect and normal mood Skin Skin exam: Present warm, dry, normal color and other (There is a 1 cm x 2 cm, superficial abrasion at the anterior aspect of the left knee.) Course Course Course Narrative: Patient is self ambulating. She has no crepitus. Do not believe emergent imaging is warranted at this time. Wound care provided by nursing staff. She is given a dose of ibuprofen here. She is advised use Tylenol ibuprofen for comfort as needed. Return here for any emergent changes. Quality Measures none Orders Category Date Time Status Bacitracin Oint pkt Med 01/03/25 11:47 Discontinued 1 gm TOP X1 ONE Ibuprofen Tab [Motrin Tab] Med 01/03/25 11:47 Discontinued 600 mg PO X1 ONE Vital Signs Vital signs: Vital Signs Temperature 98.0 F 01/03/25 11:34 Pulse Rate 93 01/03/25 11:34 Respiratory Rate 18 01/03/25 11:34 Blood Pressure 156/75 H 01/03/25 11:34 Pulse Oximetry (%) 100 01/03/25 11:34 Oxygen Delivery Method Room Air 01/03/25 11:34 Fall Patient data External records reviewed:: None Clinical information provided by:: patient Social determinants that could affect healthcare access:: housing Patient has the following chronic illnesses:: Diabetes, hypertension How is presenting disease/condition affected by chronic disease/condition?: uneffected by Evaluation data The following diagnostics were reviewed and interpreted by me:: other (specify) (n/a) Lab and/or radiology exams considered but not ordered:: Plain films Interpretation Summary: n/a Medications / Prescriptions Medications or Prescriptions considered but not ordered:: n/a Medication administrations:: Medication Administration History Discontinued Medications Bacitracin (Bacitracin Oint 1 Gm Packet) 1 gm TOP X1 ONE Stop: 01/03/25 11:48 Ibuprofen (Ibuprofen Tab 600 Mg Tablet) 600 mg PO X1 ONE Stop: 01/03/25 11:48 See above Consultations Consultation(s) initiated? (list below): No Diagnosis Fall Differential Diagnosis: syncope, fracture of wrist and compression fracture Most likely diagnosis given after review of the tests above:: Abrasion Admission Indicated Admission indicated?: not indicated Admission Request Was there a request for admission?: No Disposition Plan Disposition Plan: Discharge Discharge Attestation Discharge Attestation: The patient and all family members were given an opportunity to ask questions and understood the discharge instructions. Discharge instructions specifically effects, indications for sooner follow up or return to the emergency department, and the expected course of current diagnosis. Patient condition: Stable Discharge Plan Plan Patient Disposition: HOME (Self Care) Patient condition on transfer: Stable Prescriptions/Referrals Prescriptions/Med Rec: No Action Hum Insulin Nph/Reg Insulin Hm (Novolin 70/30 100 Units/Ml Via) 10 ML VIAL 25 u Sub-Q AM/PM Qty: 0 gabapentin 100 MG capsule 600 mg PO TID Qty: 0 atenolol [Tenormin] 25 MG tablet 25 mg PO HS Qty: 0 Hydrocodone/Acetaminophen * (NORCO 5/325 *) 1 TAB tablet 1 tab PO Q6H PRN (Reason: PAIN) Qty: 28 0RF Hydrocodone/Acetaminophen * (NORCO 5/325 *) 1 TAB tablet 1 - 2 tab PO Q4H PRN (Reason: PAIN) Qty: 20 0RF Rx Instructions: FOR PAIN Aspirin (Adult Low Strength Aspir) 81 MG TABLET.DR 81 mg PO QDAY Qty: 30 Atorvastatin Calcium 10 MG tablet 10 mg PO HS Qty: 30 alprazolam 0.25 MG tablet 0.25 mg PO BID Qty: 60 lisinopril 10 MG tablet 10 mg PO QDAY Qty: 30 hydrochlorothiazide 25 MG tablet 25 mg PO QDAY Qty: 30 glipizide 5 MG tablet 5 mg PO QDAY Qty: 60 Citalopram Hydrobromide * (CELEXA *) 20 MG tablet 20 mg PO QDAY Qty: 30 (DME) Sharps Container Misc See Rx Instructions .Route Qty: 1 0RF Rx Instructions: As directed ibuprofen 800 mg tablet 800 mg PO TID PRN (Reason: pain) Qty: 30 0RF guaifenesin 100 mg/5 mL liquid 200 mg PO Q4H PRN (Reason: cough) Qty: 473 0RF hydroxyzine HCl 10 mg tablet 10 mg PO TID PRN (Reason: anxiety) Qty: 14 0RF Problem List Clinical Impression: Superficial abrasion Patient/Caregiver Discharge Instructions Education Materials: ED Abrasions Additional Instructions: Keep your wound clean. Follow-up with your primary doctor as needed. Return here for any emergent changes or signs and symptoms of infection. Print Language: Vincentian Stand Alone Forms: Roberta Award Info., Patient Portal Info Letter
[2025-01-03] MEDS: IBUPROFEN TAB 600 MG TABLET PO (11:53)
[2025-01-03] MEDS: BACITRACIN OINT 1 GM PACKET TOP (11:54)
== END 2025-01-03 12:08 | disposition home or self-care (01) ==
PROVIDERS: Emergency Provider Family Medicine
DX: S80.212A Abrasion, left knee, initial encounter (principal); W01.0XXA Fall on same level from slipping, tripping and stumbling without subsequent striking against object, initial encounter; Y93.01 Activity, walking, marching and hiking
CPT/HCPCS: 99282; A9270

== ENCOUNTER 2025-02-17 22:19 | Emergency (ER) | payer MEDICAID, SELFPAY ==
[2025-02-17 22:27] VITALS: BP 123/75; PULSE 90; RESP 19; TEMP 36.5; O2SAT 99; BMI 20.9
[2025-02-17 22:32] VITALS: PULSE 88; O2SAT 99
[2025-02-17 23:02] VITALS: BP 127/76; PULSE 85; RESP 16; O2SAT 99
--- NOTE | 2025-02-17 23:03 | PC.NURSE ---
PT BIBA FROM FRIENDS HOME FOR IMBALANCE AND WEAKNESS. PT IS A TYPE 2 DIABETIC, HAS PHERIPHERAL NEUROPATHY, AND RA. PER EMS HER BLOOD SUGAR. EMS GAVE 250ML OF D10. ON ARRIVAL TO ROOM. THIS RN CHECKED BLOOD SUGAR AND ADVICED PROVIDER. PT IS a&o X 4, MOVED ALL EXTREMITIES, PT REPORTS CHEST PAIN AND SOB. O2 SATS ARE 100%. THIS RN ASKED TO POINT WHERE CHEST PAIN IS AT AND PT POINTS EPIGASTRIC AREA. RN ASKED IF PT HAS A HISTORY OF GERD, PT STATES SHE HAD A HITAL HERNIA AND IT WAS REPAIRED AND BELIEVES THATS THE SOURCE OF THE PAIN.
--- NOTE | 2025-02-17 23:07 | PC.NURSE ---
PT CONNECTED TO [facility] [place] AT 90BPM. PROVIDER NOTIFED OF CHEST PAIN AND DISCOMFORT. NO ORDERS GIVEN
--- NOTE | 2025-02-17 23:19 | EKG_ITS ---
[facility] Test Date: 2025-02-17 Pat Name: YESSY GUTIERREZ Department: Room: - Gender: Female Dispatch Lead: : 1970 Requested By: Indira Duenas Order Number: [id number] Reading MD: Indira Duenas Measurements Intervals [place] Rate: 86 P: 9 AK: 121 QRS: 46 QRSD: 97 T: 53 QT: 398 QTc: 479 Interpretive Statements SINUS RHYTHM Compared to ECG 10/31/2024 01:11:19 Sinus tachycardia no longer present /store/S0/[id number]
--- NOTE | 2025-02-17 23:20 | PC.NURSE ---
EKG ORDERED FOR CHEST DISCOMFORT
--- NOTE | 2025-02-17 23:31 | XR_ITS ---
Examination: AP chest single view TECHNIQUE: AP portable semiupright chest single view Date and time: February 17, 2025, 1143 hours INDICATION: Weakness today FINDINGS: Normal heart size Lungs are clear. Osseous structures are intact IMPRESSION: No active disease.
--- NOTE | 2025-02-17 23:56 | PD.EDADULT ---
ED General RME/HPI General Chief complaint: General Adult/Misc Complain Stated complaint: WEAKNESS Time Seen by Provider: 02/17/25 22:48 Arrival date/time: 02/17/25 22:19 Limitations: no limitations RME / HPI RME / HPI narrative: Dr. George's Main ED Evaluation: 54yo female EVA presents to the ED for fatigue. Patient states she is feeling fatigued and is requesting a bed to sleep. She denies any medical complaints at this time. She denies any headache, chest pain, abdominal pain, or any other associated symptoms. Related Data Home Medications ?Medication ?Instructions ?Recorded ?Confirmed Hum Insulin Nph/Reg Insulin Hm 25 u subcut AM/PM DIABETES ##0 11/03/09 (Novolin 70/30 100 Units/Ml Via) gabapentin 100 mg capsule 600 mg PO TID PAIN #0 caps 07/18/13 atenolol 25 mg tablet (Tenormin) 25 mg PO HS #0 tabs 07/23/14 Aspirin (Adult Low Strength Aspir) 81 mg PO QDAY ##30 11/28/16 Atorvastatin Calcium 10 mg PO HS ##30 11/28/16 Citalopram Hydrobromide * (CELEXA 20 mg PO QDAY ##30 11/28/16 *) alprazolam 0.25 mg tablet 0.25 mg PO BID ##60 11/28/16 glipizide 5 mg tablet 5 mg PO QDAY ##60 11/28/16 hydrochlorothiazide 25 mg tablet 25 mg PO QDAY ##30 11/28/16 lisinopril 10 mg tablet 10 mg PO QDAY ##30 11/28/16 Previous Rx's ?Medication ?Instructions ?Recorded Hydrocodone/Acetaminophen * (NORCO 1 tab PO Q6H PRN PAIN #28 tabs 05/28/15 5/325 *) Hydrocodone/Acetaminophen * (NORCO 1 - 2 tab PO Q4H PRN PAIN #20 tabs 05/30/16 5/325 *) empty container (Sharps Container) #1 ea 12/26/23 ibuprofen 800 mg tablet 800 mg PO TID PRN pain #30 tabs 05/15/24 guaifenesin 100 mg/5 mL oral liquid 200 mg (10 mL) PO Q4H PRN cough 09/07/24 #473 mL hydroxyzine HCl 10 mg tablet 10 mg PO TID PRN anxiety #14 tabs 10/31/24 Allergies Allergy/AdvReac Type Severity Reaction Status Date / Time ciprofloxacin Allergy Severe HIVES, Verified 01/03/25 11:28 VOMITING Sulfa (Sulfonamide Allergy Severe ABD PAIN Verified 01/03/25 11:28 Antibiotics) AND VOMITING Review of Systems Review of Systems Systems Reviewed: All systems reviewed, normal except as documented Past Medical History Past Medical History CARDIAC: Positive Hypertension; Negative Congestive Heart Failure RESPIRATORY: Negative Chronic Obstructive Pulmonary Disease (COPD) GENITOURINARY: Negative Renal Disease MUSCULOSKELETAL: Positive Rheumatoid Arthritis ENDOCRINE: Positive Diabetes Mellitus Type 2; Negative Diabetes Mellitus Type 1 Family History FAMILY HISTORY: Positive Family Cancer (PT'S DAD) Social History SMOKING STATUS: Current every day smoker ED Exam General Limitations: Present no limitations General appearance: Present alert and in no apparent distress Head Head exam: Present atraumatic Eye Eye exam: Present normal appearance, PERRL and EOMI ENT ENT exam: Present normal exam, normal oropharynx and mucous membranes moist Neck Neck exam: Present normal inspection, full ROM and trachea midline Chest Chest inspection: Present normal inspection and symmetric chest wall rise Respiratory Respiratory exam: Present normal lung sounds bilaterally Cardiovascular Cardiovascular exam: Present regular rate, normal rhythm and normal heart sounds Abdominal Exam Abdominal exam: Present soft and normal bowel sounds Extremities Exam Extremities exam: Present normal inspection and full ROM; Absent other (deformities) Back Exam Back exam: Present normal inspection and full ROM Neurological Exam Neurological exam: Present alert, oriented X3 and CN II-XII intact Psychiatric Psychiatric exam: Present normal affect and normal mood Skin Skin exam: Present warm, dry, intact and normal color Course Quality Measures none Orders Category Date Time Status EKG (ED ONLY) *Do not use* NOW Care 02/17/25 23:19 Completed EKG (ED Only) Stat Exams 02/17/25 23:19 Draft XR chest 1V portable Stat Exams 02/17/25 23:31 Completed BNP [B-Type Natriuretic Peptide] Stat Lab 02/17/25 23:27 Completed CBC Stat Lab 02/17/25 23:27 Completed CMP [Comprehensive Metabolic Panel] Stat Lab 02/17/25 23:27 Completed Troponin I Stat Lab 02/17/25 23:27 Completed Vital Signs Vital signs: Vital Signs Temperature 97.7 F 02/17/25 22:27 Pulse Rate 90 02/17/25 22:27 Respiratory Rate 19 02/17/25 22:27 Blood Pressure 123/75 02/17/25 22:27 Pulse Oximetry (%) 99 02/17/25 22:27 Oxygen Delivery Method Room Air 02/17/25 22:27 Discharge Plan Plan Patient Disposition: HOME (Self Care) Patient condition on transfer: Stable Prescriptions/Referrals Prescriptions/Med Rec: No Action Hum Insulin Nph/Reg Insulin Hm (Novolin 70/30 100 Units/Ml Via) 10 ML VIAL 25 u Sub-Q AM/PM Qty: 0 gabapentin 100 MG capsule 600 mg PO TID Qty: 0 atenolol [Tenormin] 25 MG tablet 25 mg PO HS Qty: 0 Hydrocodone/Acetaminophen * (NORCO 5/325 *) 1 TAB tablet 1 tab PO Q6H PRN (Reason: PAIN) Qty: 28 0RF Hydrocodone/Acetaminophen * (NORCO 5/325 *) 1 TAB tablet 1 - 2 tab PO Q4H PRN (Reason: PAIN) Qty: 20 0RF Rx Instructions: FOR PAIN Aspirin (Adult Low Strength Aspir) 81 MG TABLET.DR 81 mg PO QDAY Qty: 30 Atorvastatin Calcium 10 MG tablet 10 mg PO HS Qty: 30 alprazolam 0.25 MG tablet 0.25 mg PO BID Qty: 60 lisinopril 10 MG tablet 10 mg PO QDAY Qty: 30 hydrochlorothiazide 25 MG tablet 25 mg PO QDAY Qty: 30 glipizide 5 MG tablet 5 mg PO QDAY Qty: 60 Citalopram Hydrobromide * (CELEXA *) 20 MG tablet 20 mg PO QDAY Qty: 30 (DME) Sharps Container Misc See Rx Instructions .Route Qty: 1 0RF Rx Instructions: As directed ibuprofen 800 mg tablet 800 mg PO TID PRN (Reason: pain) Qty: 30 0RF guaifenesin 100 mg/5 mL liquid 200 mg PO Q4H PRN (Reason: cough) Qty: 473 0RF hydroxyzine HCl 10 mg tablet 10 mg PO TID PRN (Reason: anxiety) Qty: 14 0RF Referrals: Elie Manrique MD [Primary Care Provider] - In 1 week Problem List Clinical Impression: History of homeless, Generalized weakness Patient/Caregiver Discharge Instructions Education Materials: ED Weakness (Uncertain Cause) Additional Instructions: Return to the Emergency Department for worsening symptoms or any other concerns Print Language: Bulgarian Stand Alone Forms: Roberta Award Info., Patient Portal Info Letter MDM Narrative MDM hospital course: Scrsaima Attestation: 02/17/25 - Preethi Frazier am scribing for and in the presence of Dr. George. Clinical Information Provided by patient Medical Records Reviewed [facility] (Per chart review, patient was seen here on 01/03/25 for superficial abrasion.) Meds/Rx Considered, not Ordered None Labs/Rad/Tests considered, not Ordered None Chronic Illness/Social Conditions Add or document further as needed: History of DM, HTN EKG EKG Interpretation narrative: EKG done at 2324, NSR, rate of 86, normal intervals, normal axis, no acute ST or T-wave changes, according to my interpretation. Lab Interpretation Labs: interpreted by id Lab(s) interpretation(s): CBC normal, Sodium 130, Potassium 3.2, Glucose 228, Troponin normal, BNP normal. Imaging Imaging interpretation: interpreted by id Radiology reports / interpretation(s): [place] [facility] Report Signed Patient: YESSY GUTIERREZ Record#: [id number] Birthdate: 1970 Age/Sex: 54 / F Location: [facility] Attending Dr: Ordering Physician: Indira Mario MD Date of Service: 02/17/25 Procedure(s): XR chest 1V portable Accession Number(s): [id number] cc: Elie Manrique MD; Quinten Humphrey MD; Indira Mario MD~ Examination: AP chest single view TECHNIQUE: AP portable semiupright chest single view Date and time: February 17, 2025, 1143 hours INDICATION: Weakness today FINDINGS: Normal heart size Lungs are clear. Osseous structures are intact IMPRESSION: No active disease. Dictated By: Quinten Humphrey MD Signed By: <Electronically signed by Quinten Humphrey MD in OV> 02/17/25 0553 Medication Administration(s) none Diagnosis Differential diagnosis: UTI, dehydration, electrolyte abnormality Most likely dx, and/or detailed dx discussion: see clinical impression below Dispositon Disposition: Discharge Home
[2025-02-18] VITALS: BP 99/65; PULSE 83; RESP 14; O2SAT 99
[2025-02-18 00:31] LABS: Basophils # (Auto) 0.1 Thou/mm3 (0.0-0.2); Basophils % (Auto) 1 % (0-2.5); Eosinophils # (Auto) 0.1 Thou/mm3 (0.0-0.5); Eosinophils % (Auto) 1 % (0-10); Hematocrit 35.6 % (36.0-46.0); Hemoglobin 11.9 g/dL (12.0-16.0); Immature Granulocytes Auto 0.14 Thou/mm3 (0.00-0.00); Lymphocytes # (Auto) 1.8 Thou/mm3 (1.0-4.8); Lymphocytes % (Auto) 17 % (10-50); Mean Corpuscular HGB Conc 33.4 g/dl (31.0-37.0); Mean Corpuscular Hemoglobin 27.9 pg (25.0-35.0); Mean Corpuscular Volume 83 fL (80-100); Monocytes # (Auto) 1.1 Thou/mm3 (0.0-0.8); Monocytes % (Auto) 10 % (0-12); Neutrophils # (Auto) 7.4 Thou/mm3 (1.8-7.7); Neutrophils % (Auto) 70 % (37-80); Nucleated Red Blood Cell # 0.00 Thou/mm3 (0.00-0.00); Nucleated Red Blood Cell % 0 /100 WBC (0); Platelet Count 318 Thou/mm3 (140-440); RDW Standard Deviation 44.5 fL (36.4-46.3); Red Blood Count 4.27 Miln/mm3 (4.00-5.20); White Blood Count 10.6 Thou/mm3 (3.6-11.0)
[2025-02-18 00:47] LABS: B-Type Natriuretic Peptide < 20 pg/mL (0-100)
[2025-02-18 00:48] LABS: Alanine Aminotransferase 31 U/L (10-49); Albumin, Serum 4.7 gm/dL (3.5-5.0); Albumin/Globulin Ratio 1.2 (1.2-2.2); Alkaline Phosphatase 155 U/L (46-116); Anion Gap 15 (7-16); Aspartate Amino Transferase 33 U/L (0-34); BUN/Creatinine Ratio 10 Ratio (12-20); Bilirubin,Total 0.5 mg/dL (0.3-1.2); Blood Urea Nitrogen 19 mg/dL (9-23); Calcium 9.9 mg/dL (8.3-10.6); Calcium (Corrected) 9.9 mg/dL (8.5-10.1); Carbon Dioxide 22.4 mMol/L (20.0-31.0); Chloride 93 mMol/L (98-107); Creatinine (Component) 2.0 mg/dL (0.6-1.3); Estimated Creatinine Clearance 30.6 mL/min (>60); Globulin 4.0 gm/dL (2.3-3.5); Glucose 228 mg/dL (74-106); Osmolality,Calculated 270 (275-295); Potassium 3.2 mMol/L (3.4-5.1); Sodium 130 mMol/L (136-145); Total Protein 8.7 gm/dL (5.7-8.2); Troponin I < 0.002 ng/mL (0.0-0.045); eGFR 30 See Note
[2025-02-18 01:00] VITALS: BP 95/57; PULSE 80; RESP 13; O2SAT 100
[2025-02-18 02:00] VITALS: BP 107/63; PULSE 76; RESP 18; TEMP 36.5; O2SAT 99
[2025-02-18 03:26] VITALS: BP 116/68; PULSE 78; RESP 15; TEMP 36.4; O2SAT 99
--- NOTE | 2025-02-18 03:26 | PC.NURSE ---
patient is resting quietly in bed with eyes closed, respirations are even and unlabored, and there is no acute distress. CHEST RISE AND FALL NOTED. PT WAS AWAKEN FOR VITAL SIGNS
[2025-02-18 05:21] VITALS: BP 113/72; PULSE 80; RESP 16; TEMP 36.5; O2SAT 100
== END 2025-02-18 06:11 | disposition home or self-care (01) ==
PROVIDERS: Emergency Provider Emergency Medicine; PCP Family Medicine
DX: R53.1 Weakness (principal); I10 Essential (primary) hypertension; F17.210 Nicotine dependence, cigarettes, uncomplicated; Z59.00 Homelessness unspecified
CPT/HCPCS: 36415; 71045; 80053; 83880; 84484; 85025; 93005; 99283

== ENCOUNTER 2025-03-21 14:16 | Emergency (ER) | payer MEDICAID, SELFPAY ==
[2025-03-21 14:17] VITALS: BP 131/76; PULSE 90; RESP 19; TEMP 36.6; O2SAT 98
[2025-03-21 14:21] VITALS: PULSE 76; O2SAT 99; BMI 20.9
--- NOTE | 2025-03-21 14:36 | XR_ITS ---
Examination: PA chest single view. Technique: Upright PA chest single view Date and time: March 21, 2025, 1441 hrs., Comparison February 17, 2025. Indications: Chest pain today. Findings: Normal heart size. The lungs are clear. The osseous structures are intact. Impression: No active disease.
--- NOTE | 2025-03-21 14:36 | EKG_ITS ---
[facility] Test Date: 2025-03-21 Pat Name: YESSY GUTIERREZ Department: Room: - Gender: Female Candy Dipper Hand: : 1970 Requested By: Sofiya Chirinos Order Number: [id number] Reading MD: Sfoiya Chirinos Measurements Intervals [place] Rate: 99 P: -38 MS: 111 QRS: -1 QRSD: 84 T: 73 QT: 369 QTc: 475 Interpretive Statements SINUS RHYTHM WITH SHORT MS INTERVAL Compared to ECG 02/17/2025 23:24:40 Short MS interval now present /store/S0/[id number].pdf
--- NOTE | 2025-03-21 14:58 | PD.EDRME ---
Rapid Medical Screening Exam E Arrival date/time: 03/21/25 14:16 This is a 54-year-old female that comes into the emergency room with complaints of abdominal pain chest pain and shortness of breath that started prior to arrival. Patient states she is homeless. Patient states she felt like she was overheated. Patient states that she is nauseous but has not vomited. Patient reports history of anxiety, high blood pressure, hyperlipidemia. I have greeted and performed a focused initial assessment of this patient. Initial appropriate labs ordered at this time. A comprehensive ED assessment and evaluation of the patient and analysis of all test and completion of medical decision making process will be conducted by additional ED provider. Chief Complaint: Abdominal Pain Time Seen by Provider: 03/21/25 14:29 Vital signs: Vital Signs Temperature 97.9 F 03/21/25 14:17 Pulse Rate 90 03/21/25 14:17 Respiratory Rate 19 03/21/25 14:17 Blood Pressure 131/76 H 03/21/25 14:17 Pulse Oximetry (%) 98 03/21/25 14:17 Oxygen Delivery Method Room Air 03/21/25 14:17
[2025-03-21 15:56] LABS: Collection Type, Urine Voided; RBC,Urine 0 /hpf (0-3)
--- NOTE | 2025-03-21 16:09 | PD.EDADULT ---
ED General RME/HPI General Chief complaint: Abdominal Pain Stated complaint: ABDOMINAL PAIN Time Seen by Provider: 03/21/25 14:29 Arrival date/time: 03/21/25 14:16 CC: Itching bumps on her forearms and face. However initial complaint via EMS was chest pain abdominal pain. EMS reports stable vital signs patient is homeless with staying at the [facility] stating it was exceedingly hot there and she felt she was overheated . Currently patient is only complaining of itching denies any chest pain shortness of breath or difficulty breathing. RME / HPI RME / HPI narrative: 03/21/25 14:16 This is a 54-year-old female that comes into the emergency room with complaints of abdominal pain chest pain and shortness of breath that started prior to arrival. Patient states she is homeless. Patient states she felt like she was overheated. Patient states that she is nauseous but has not vomited. Patient reports history of anxiety, high blood pressure, hyperlipidemia. I have greeted and performed a focused initial assessment of this patient. Initial appropriate labs ordered at this time. A comprehensive ED assessment and evaluation of the patient and analysis of all test and completion of medical decision making process will be conducted by additional ED provider. Related Data Home Medications ?Medication ?Instructions ?Recorded ?Confirmed Hum Insulin Nph/Reg Insulin Hm 25 u subcut AM/PM DIABETES ##0 11/03/09 (Novolin 70/30 100 Units/Ml Via) gabapentin 100 mg capsule 600 mg PO TID PAIN #0 caps 07/18/13 atenolol 25 mg tablet (Tenormin) 25 mg PO HS #0 tabs 07/23/14 Aspirin (Adult Low Strength Aspir) 81 mg PO QDAY ##30 11/28/16 Atorvastatin Calcium 10 mg PO HS ##30 11/28/16 Citalopram Hydrobromide * (CELEXA 20 mg PO QDAY ##30 11/28/16 *) alprazolam 0.25 mg tablet 0.25 mg PO BID ##60 11/28/16 glipizide 5 mg tablet 5 mg PO QDAY ##60 11/28/16 hydrochlorothiazide 25 mg tablet 25 mg PO QDAY ##30 11/28/16 lisinopril 10 mg tablet 10 mg PO QDAY ##30 11/28/16 Previous Rx's ?Medication ?Instructions ?Recorded Hydrocodone/Acetaminophen * (NORCO 1 tab PO Q6H PRN PAIN #28 tabs 05/28/15 5/325 *) Hydrocodone/Acetaminophen * (NORCO 1 - 2 tab PO Q4H PRN PAIN #20 tabs 05/30/16 5/325 *) empty container (Sharps Container) #1 ea 12/26/23 ibuprofen 800 mg tablet 800 mg PO TID PRN pain #30 tabs 05/15/24 guaifenesin 100 mg/5 mL oral liquid 200 mg (10 mL) PO Q4H PRN cough 09/07/24 #473 mL hydroxyzine HCl 10 mg tablet 10 mg PO TID PRN anxiety #14 tabs 10/31/24 Allergies Allergy/AdvReac Type Severity Reaction Status Date / Time ciprofloxacin Allergy Severe HIVES, Verified 01/03/25 11:28 VOMITING Sulfa (Sulfonamide Allergy Severe ABD PAIN Verified 01/03/25 11:28 Antibiotics) AND VOMITING Review of Systems Review of Systems Narrative Review of Systems: GEN: No fever, no chills, no weight loss EYES: No discharge, no visual changes, no pain HEENT: No ear pain, no congestion, no sore throat PULM: No shortness of breath, no cough, no congestion CV: No chest pain, no dyspnea on exertion, no palpitations GI: No nausea, no vomiting, no diarrhea, no pain, no constipation : No frequency, no urgency, no dysuria MUSC/SKEL: No joint pain, no back pain SKIN: No rash PSYCH: No hallucinations, no depression HEME/LYMPH: No easy bleeding or bruising tendencies NEURO: No weakness, no headache Past Medical History Past Medical History CARDIAC: Positive Hypertension; Negative Congestive Heart Failure RESPIRATORY: Negative Chronic Obstructive Pulmonary Disease (COPD) GENITOURINARY: Negative Renal Disease MUSCULOSKELETAL: Positive Rheumatoid Arthritis ENDOCRINE: Positive Diabetes Mellitus Type 2; Negative Diabetes Mellitus Type 1 Family History FAMILY HISTORY: Positive Family Cancer Social History SMOKING STATUS: Current every day smoker ED Exam Narrative Physical exam: [General: Thin but not emaciated, not in any acute distress Head normocephalic HEENT: Eyes pupils are PERRLA EOMs are intact all other subsystems of HEENT are within acceptable limits Neck is supple nontender Chest equal chest rise nontender to palpation Respiratory: Clear to auscultation no wheezes crackles or rubs CV: Rate rhythm is regular no murmurs rubs or clicks Abdomen is soft nontender no masses positive bowel sounds all 4 quadrants Back: No CVA tenderness no spinous process tenderness from cervical spine thoracic and lumbar spine Skin: Small papules with surrounding erythema to both forearms and around the mouth. No surrounding erythema no streaking or open lesions indurations or ulcerations. Otherwise skin is intact no petechiae rash induration ulceration or crepitus Extremities: Moving all extremity against resistance cap refill less than 2 seconds neurosensory intact Neuro: Awake alert oriented x3 Glascow coma 15 no focal deficits] Course Quality Measures none Orders Category Date Time Status EKG (ED ONLY) *Do not use* NOW Care 03/21/25 14:36 Completed Saline [Insert IV] NOW Care 03/21/25 16:09 Active EKG (ED Only) Stat Exams 03/21/25 14:36 Draft XR chest 1V Stat Exams 03/21/25 14:36 Completed BNP [B-Type Natriuretic Peptide] Stat Lab 03/21/25 15:05 Completed CBC Stat Lab 03/21/25 15:05 Completed Comprehensive Metabolic Panel Stat Lab 03/21/25 15:05 Completed Creatine Kinase Stat Lab 03/21/25 15:05 Completed Drug Screen,Urine Stat Lab 03/21/25 15:23 Completed Lipase Stat Lab 03/21/25 15:05 Completed Troponin I Stat Lab 03/21/25 15:05 Completed Urinalysis, C/S if Indicated Stat Lab 03/21/25 15:23 Completed Urine Culture Stat Lab 03/21/25 15:23 Received KCL 10% Liq UDC 15 ML Med 03/21/25 17:19 Once 40 meq GT X1 ONE Sodium Chloride 0.9% 1000 ml [Ns] 1,000 ml Med 03/21/25 16:09 Discontinued IV 999 mls/hr Vital Signs Vital signs: Vital Signs Temperature 97.9 F 03/21/25 14:17 Pulse Rate 90 03/21/25 14:17 Respiratory Rate 19 03/21/25 14:17 Blood Pressure 131/76 H 03/21/25 14:17 Pulse Oximetry (%) 98 03/21/25 14:17 Oxygen Delivery Method Room Air 03/21/25 14:17 Discharge Plan Plan Patient Disposition: HOME (Self Care) Patient condition on transfer: Stable Prescriptions/Referrals Prescriptions/Med Rec: No Action Hum Insulin Nph/Reg Insulin Hm (Novolin 70/30 100 Units/Ml Via) 10 ML VIAL 25 u Sub-Q AM/PM Qty: 0 gabapentin 100 MG capsule 600 mg PO TID Qty: 0 atenolol [Tenormin] 25 MG tablet 25 mg PO HS Qty: 0 Hydrocodone/Acetaminophen * (NORCO 5/325 *) 1 TAB tablet 1 tab PO Q6H PRN (Reason: PAIN) Qty: 28 0RF Hydrocodone/Acetaminophen * (NORCO 5/325 *) 1 TAB tablet 1 - 2 tab PO Q4H PRN (Reason: PAIN) Qty: 20 0RF Rx Instructions: FOR PAIN Aspirin (Adult Low Strength Aspir) 81 MG TABLET.DR 81 mg PO QDAY Qty: 30 Atorvastatin Calcium 10 MG tablet 10 mg PO HS Qty: 30 alprazolam 0.25 MG tablet 0.25 mg PO BID Qty: 60 lisinopril 10 MG tablet 10 mg PO QDAY Qty: 30 hydrochlorothiazide 25 MG tablet 25 mg PO QDAY Qty: 30 glipizide 5 MG tablet 5 mg PO QDAY Qty: 60 Citalopram Hydrobromide * (CELEXA *) 20 MG tablet 20 mg PO QDAY Qty: 30 (DME) Sharps Container Misc See Rx Instructions .Route Qty: 1 0RF Rx Instructions: As directed ibuprofen 800 mg tablet 800 mg PO TID PRN (Reason: pain) Qty: 30 0RF guaifenesin 100 mg/5 mL liquid 200 mg PO Q4H PRN (Reason: cough) Qty: 473 0RF hydroxyzine HCl 10 mg tablet 10 mg PO TID PRN (Reason: anxiety) Qty: 14 0RF Referrals: Pranay Hatch MD [Primary Care Provider] - In 1 week Problem List Clinical Impression: Hypokalemia, Methamphetamine abuse, Hyperglycemia Patient/Caregiver Discharge Instructions Education Materials: ED Diabetes with High Blood Sugar, ED Drug Abuse Additional Instructions: Try and stay cool during these heat days take your medicines as prescribed follow-up with the primary care provider. Print Language: Lao Stand Alone Forms: Roberta Award Info., Patient Portal Info Letter PA/HELP DESK TECHNICIAN Supervising Physician PA/HELP DESK TECHNICIAN Supervising Physician: Janak Vance ENP MDM Lab Interpretation Lab(s) interpretation(s): CBC shows no acute leukocytosis mild anemia of 11.8 and 34.9 respectively. No thrombocytopenia CMP shows sodium of 136 potassium 3.0 no significant other electrolyte imbalances glucose of 396. Alk phos at 140 no other transaminitis T. bili is normal Creatinine kinase within acceptable limits Troponin and BNP is negative Urine is negative for urinary tract infection UDS positive for methamphetamines. Imaging Provider imaging interpretation(s): Patient has no acute findings that require emergent or immediate intervention. Medication Administration(s) none Medication Administration History Discontinued Medications Sodium Chloride (Ns) 1,000 mls @ 999 mls/hr IV .Q1H1M ONE Stop: 03/21/25 17:09 Last Admin: 03/21/25 16:30 Dose: 999 mls/hr Documented By: PIPPA Diagnosis Differential diagnosis: Methamphetamine use dehydration rhabdo myelosis Dispositon Disposition: Discharge Home
[2025-03-21 16:15] VITALS: BP 180/99; PULSE 100; RESP 18; TEMP 36.4; O2SAT 100
[2025-03-21 16:28] LABS: Basophils # (Auto) 0.0 Thou/mm3 (0.0-0.2); Basophils % (Auto) 1 % (0-2.5); Eosinophils # (Auto) 0.1 Thou/mm3 (0.0-0.5); Eosinophils % (Auto) 2 % (0-10); Hematocrit 34.9 % (36.0-46.0); Hemoglobin 11.8 g/dL (12.0-16.0); Immature Granulocytes Auto 0.03 Thou/mm3 (0.00-0.00); Lymphocytes # (Auto) 2.5 Thou/mm3 (1.0-4.8); Lymphocytes % (Auto) 35 % (10-50); Mean Corpuscular HGB Conc 33.8 g/dl (31.0-37.0); Mean Corpuscular Hemoglobin 28.5 pg (25.0-35.0); Mean Corpuscular Volume 84 fL (80-100); Monocytes # (Auto) 0.5 Thou/mm3 (0.0-0.8); Monocytes % (Auto) 7 % (0-12); Neutrophils # (Auto) 3.8 Thou/mm3 (1.8-7.7); Neutrophils % (Auto) 54 % (37-80); Nucleated Red Blood Cell # 0.00 Thou/mm3 (0.00-0.00); Nucleated Red Blood Cell % 0 /100 WBC (0); Platelet Count 371 Thou/mm3 (140-440); RDW Standard Deviation 49.6 fL (36.4-46.3); Red Blood Count 4.14 Miln/mm3 (4.00-5.20); White Blood Count 6.9 Thou/mm3 (3.6-11.0)
[2025-03-21] MEDS: SODIUM CHLORIDE 0.9% 1000 ML 1,000 ML 999 ML IV (16:30)
[2025-03-21 16:32] LABS: Alanine Aminotransferase 36 U/L (10-49); Albumin, Serum 4.1 gm/dL (3.5-5.0); Albumin/Globulin Ratio 1.2 (1.2-2.2); Alkaline Phosphatase 140 U/L (46-116); Anion Gap 15 (7-16); Aspartate Amino Transferase 28 U/L (0-34); BUN/Creatinine Ratio 9 Ratio (12-20); Bilirubin,Total 1.0 mg/dL (0.3-1.2); Blood Urea Nitrogen 10 mg/dL (9-23); Calcium 9.8 mg/dL (8.3-10.6); Calcium (Corrected) 9.8 mg/dL (8.5-10.1); Carbon Dioxide 25.5 mMol/L (20.0-31.0); Chloride 96 mMol/L (98-107); Creatinine (Component) 1.1 mg/dL (0.6-1.3); Estimated Creatinine Clearance 55.7 mL/min (>60); Globulin 3.3 gm/dL (2.3-3.5); Glucose 396 mg/dL (74-106); Lipase 28 U/L (12-53); Osmolality,Calculated 287 (275-295); Potassium 3.0 mMol/L (3.4-5.1); Sodium 136 mMol/L (136-145); Total Protein 7.4 gm/dL (5.7-8.2); Troponin I < 0.002 ng/mL (0.0-0.045); eGFR > 60 See Note
[2025-03-21 16:43] LABS: Amphetamine/Methamp Scrn,U Positive (Negative); Barbiturate Screen,Urine Negative (Negative); Benzodiazepines Screen,Urine Negative (Negative); Benzoylecgonine Screen, Ur Negative (Negative); Fentanyl Screen,Urine Negative (Negative); Opiate Screen,Urine Negative (Negative); THC Screen,Urine Negative (Negative)
[2025-03-21 16:49] LABS: Bacteria,Urine Rare; Bilirubin,Urine Negative (Negative); Blood,Urine Negative (Negative); Budding Yeast,Urine Present; Color,Urine Lt-Yellow (Lt Yel-Yel); Glucose, Urine 4+ (Negative); Ketones,Urine 1+ (Negative); Leukocyte Esterase,Urine Positive (Negative); Nitrite,Urine Negative (Negative); PH,Urine 6.0 (5.0-7.0); Protein,Urine 1+ (Neg - Trace); Specific Gravity,Urine 1.037 (1.001-1.035); Squamous Epithelial Cell,Urine 4 /hpf (0-5); Urobilinogen,Urine Negative mg/dL (0.0-1.0); WBC,Urine 20 /hpf (0-5)
[2025-03-21 16:50] LABS: B-Type Natriuretic Peptide < 20 pg/mL (0-100)
[2025-03-21 17:02] LABS: Clarity,Urine Hazy (Clear/Hazy); Culture Indicated,Urine Yes
[2025-03-21 17:04] LABS: Creatine Kinase 72 U/L (34-171)
[2025-03-21] MEDS: INSULIN HUM REGULAR 1 UNIT/0.01 ML (PER UNIT) 10 UNIT SC (18:00)
[2025-03-21] MEDS: POTASSIUM CHLORIDE 10% 20 MEQ/15 ML UDC 40 MEQ GT (18:00)
[2025-03-21 18:03] VITALS: PULSE 94; RESP 18; O2SAT 100
[2025-03-21 18:32] VITALS: BP 174/95; PULSE 96; RESP 16; TEMP 36.6; O2SAT 100
[2025-03-21 19:00] VITALS: BP 118/77; PULSE 90; RESP 18; O2SAT 100
--- NOTE | 2025-03-21 19:24 | PC.CC ---
1923-Transportation arranged for pt via [employer]. [employer] transit driver will arrive in 15 min from [place].
== END 2025-03-21 19:25 | disposition home or self-care (01) ==
PROVIDERS: Nurse Practitioner Family; Emergency Provider Family Medicine; PCP Internal Medicine
DX: E87.6 Hypokalemia (principal); F15.10 Other stimulant abuse, uncomplicated; E11.65 Type 2 diabetes mellitus with hyperglycemia; Z79.4 Long term (current) use of insulin; Z79.84 Long term (current) use of oral hypoglycemic drugs
CPT/HCPCS: 36415; 71045; 80053; 80307; 81001; 82550; 83690; 83880; 84484; 85025; 87086; 93005; 96360; 99283; J1815; J7030; A9270

== ENCOUNTER 2025-04-02 21:59 | Emergency (ER) | payer MEDICAID, SELFPAY ==
[2025-04-02 22:00] VITALS: BMI 21.6
[2025-04-02 22:13] VITALS: BP 180/83; PULSE 105; RESP 18; TEMP 37; O2SAT 100
--- NOTE | 2025-04-02 22:22 | EDNOTE_ITS ---
ED Anxiety RME/HPI General Chief Complaint: General Adult/Misc Complain Stated Complaint: EMOTIONAL BREAKDOWN Time Seen by Provider: 04/02/25 22:17 Arrival date/time: 04/02/25 21:59 54F with history of homelessness, DM, HTN, and anxiety presents to ED for emotional breakdown. Patient denies SI/HI. Patient just wants something to help her calm down. She would also like some food and water. Limitations: no limitations Related Data Home Medications ?Medication ?Instructions ?Recorded ?Confirmed Hum Insulin Nph/Reg Insulin Hm 25 u subcut AM/PM DIABE YELENA ##0 11/03/09 (Novolin 70/30 100 Units/Ml Via) gabapentin 100 mg capsule 600 mg PO TID PAIN #0 caps 1 09/18/12 atenolol 25 mg tablet (Tenormin) 25 mg PO HS #0 tabs 0 07/23/14 Aspirin (Adult Low Strength Aspir) 81 mg PO QDAY ##30 11/28/16 Atorvastatin Calcium 10 mg PO HS ##30 11/28/16 Citalopram Hydrobromide * (CELEXA 20 mg PO QDAY ##30 0 11/28/16 *) alprazolam 0.25 mg tablet 0.25 mg PO BID ##60 11/28/16 glipizide 5 mg tablet 5 mg PO QDAY ##60 11/28/16 hydrochlorothiazide 25 mg tablet 25 mg PO QDAY ##30 lisinopril 10 mg tablet 10 mg PO QDAY ##30 11/28/16 Previous Rx's ?Medication ?Instructions ?Recorded Hydrocodone/Acetaminophen * (NORCO 1 tab PO Q6H PRN PA IN #28 tabs 05/28/15 5/325 *) Hydrocodone/Acetaminophen * (NORCO 1 - 2 tab PO Q4H OR N PAIN #20 tabs 05/30/16 5/325 *) empty container (Sharps Container) #1 ea 12/26/23 ibuprofen 800 mg tablet 800 mg PO TID PRN pain #30 t abs 05/15/24 guaifenesin 100 mg/5 mL oral liquid 200 mg (10 mL) PO Q4H PRN cough 09/07/24 #473 mL hydroxyzine HCl 10 mg tablet 10 mg PO TID PRN anxiety #14 tabs 10/31/24 Allergies Allergy/AdvReac Type Severity Reaction Status Date / Time ciprofloxacin Allergy Severe HIVES, Verified 01/03/25 11:28 VOMITING Sulfa (Sulfonamide Allergy Severe ABD PAIN Verified 01/03/25 11:28 Antibiotics) AND VOMITING Review of Systems Review of Systems Systems Reviewed: All systems reviewed, normal except as documented Psychiatric Psychiatric: Reports as per HPI and Reports anxiety Past Medical History Past Medical History CARDIAC: Positive Hypertension; Negative Congestive Heart Failure RESPIRATORY: Negative Chronic Obstructive Pulmonary Disease (COPD) GENITOURINARY: Negative Renal Disease MUSCULOSKELETAL: Positive Rheumatoid Arthritis ENDOCRINE: Positive Diabetes Mellitus Type 2; Negative Diabetes Mellitus Type 1 Family History FAMILY HISTORY: Positive Family Cancer Social History SMOKING STATUS: Current every day smoker ED Exam General Limitations: Present no limitations General appearance: Present alert, in no apparent distress and anxious Head Head exam: Present atraumatic Neck Neck exam: Present normal inspection, full ROM and trachea midline Chest Chest inspection: Present normal inspection and symmetric chest wall rise Neurological Exam Neurological exam: Present alert and oriented X3 Psychiatric Psychiatric exam: Present normal affect and anxious Course Quality Measures none Orders Category Date Time Status hydrOXYzine HCL [Atarax] Med 04/02/25 22:17 Discontinued 50 mg PO X1 ONE Vital Signs Vital signs: Vital Signs Temperature 98.6 F 04/02/25 22:13 Pulse Rate 105 H 04/02/25 22:13 Respiratory Rate 18 04/02/25 22:13 Blood Pressure 180/83 H 04/02/25 22:13 Pulse Oximetry (%) 100 04/02/25 22:13 Oxygen Delivery Method Room Air 04/02/25 22:13 Anxiety MDM Narrative MDM Narrative: 54F with history of homelessness, DM, HTN, and anxiety presents to ED for emotional breakdown. Patient denies SI/HI. Patient just wants something to help her calm down. She would also like some food and water. Physical exam reveals anxious individual. Patient is afebrile and alert. Meds, food, and water given. Patient data External records reviewed:: [facility] previous records Clinical information provided by:: patient Social determinants that could affect healthcare access:: housing Patient has the following chronic illnesses:: homelessness, DM, HTN, and anxiety How is presenting disease/condition affected by chronic disease/condition?: caused by Evaluation data The following diagnostics were reviewed and interpreted by me:: other (specify) (none) Lab and/or radiology exams considered but not ordered:: not ordered Interpretation Summary: n/a Medications / Prescriptions Medications or Prescriptions considered but not ordered:: ordered Medication administrations:: Medication Administration History Discontinued Medications Hydroxyzine HCl (Hydroxyzine Hcl 25 Mg Tablet) 50 mg PO X1 ONE Stop: 04/02/25 22:18 Consultations Consultation(s) initiated? (list below): No Diagnosis Differential diagnosis anxiety: hyperventilation, panic disorder, acute anxiety and other (homeless) Most likely diagnosis given after review of the tests above:: anxiety, homeless Admission Indicated Admission indicated?: not indicated Admission Request Was there a request for admission?: No Disposition Plan Disposition Plan: Discharge Discharge Attestation Discharge Attestation: The patient and all family members were given an opportunity to ask questions and understood the discharge instructions. Discharge instructions specifically effects, indications for sooner follow up or return to the emergency department, and the expected course of current diagnosis. Patient condition: Stable Discharge Plan Plan Patient Disposition: HOME (Self Care) Discharge Disposition comment: Stable Prescriptions/Referrals Prescriptions/Med Rec: No Action Hum Insulin Nph/Reg Insulin Hm (Novolin 70/30 100 Units/Ml Via) 10 ML VIAL 25 u Sub-Q AM/PM Qty: 0 gabapentin 100 MG capsule 600 mg PO TID Qty: 0 atenolol [Tenormin] 25 MG tablet 25 mg PO HS Qty: 0 Hydrocodone/Acetaminophen * (NORCO 5/325 *) 1 TAB tablet 1 tab PO Q6H PRN (Reason: PAIN) Qty: 28 0RF Hydrocodone/Acetaminophen * (NORCO 5/325 *) 1 TAB tablet 1 - 2 tab PO Q4H PRN (Reason: PAIN) Qty: 20 0RF Rx Instructions: FOR PAIN Aspirin (Adult Low Strength Aspir) 81 MG TABLET.DR 81 mg PO QDAY Qty: 30 Atorvastatin Calcium 10 MG tablet 10 mg PO HS Qty: 30 alprazolam 0.25 MG tablet 0.25 mg PO BID Qty: 60 lisinopril 10 MG tablet 10 mg PO QDAY Qty: 30 hydrochlorothiazide 25 MG tablet 25 mg PO QDAY Qty: 30 glipizide 5 MG tablet 5 mg PO QDAY Qty: 60 Citalopram Hydrobromide * (CELEXA *) 20 MG tablet 20 mg PO QDAY Qty: 30 (DME) Sharps Container Misc See Rx Instructions .Route Qty: 1 0RF Rx Instructions: As directed ibuprofen 800 mg tablet 800 mg PO TID PRN (Reason: pain) Qty: 30 0RF guaifenesin 100 mg/5 mL liquid 200 mg PO Q4H PRN (Reason: cough) Qty: 473 0RF hydroxyzine HCl 10 mg tablet 10 mg PO TID PRN (Reason: anxiety) Qty: 14 0RF Problem List Clinical Impression: Anxiety, Homeless Patient/Caregiver Discharge Instructions Education Materials: ED Anxiety Reaction Additional Instructions: Please follow-up with PCP within 24-48 hours and return immediately if symptoms worsen. Print Language: [place] Citizen Stand Alone Forms: Patient Portal Info Letter PA/CAR INSPECTION AND REPAIR MANAGER Supervising Physician PA/EFFIE Supervising Physician: Dr. Campa
[2025-04-02 22:30] VITALS: BP 135/85; PULSE 84; RESP 18; TEMP 36.6; O2SAT 98
== END 2025-04-02 22:30 | disposition home or self-care (01) ==
LOC: SERX 22:31
PROVIDERS: Emergency Provider Emergency Medicine
DX: F41.9 Anxiety disorder, unspecified (principal); Z59.00 Homelessness unspecified
CPT/HCPCS: 99281; A9270

== ENCOUNTER 2025-04-03 17:06 | Emergency (ER) | payer MEDICAID, SELFPAY ==
[2025-04-03] VITALS (8 sets, daily range): BP systolic 124–186; BP diastolic 64–104; PULSE 68–83; RESP 14–18; TEMP 36.4–36.7; O2SAT 99–100; BMI 21.3
--- NOTE | 2025-04-03 18:18 | PD.EDADULT ---
ED General RME/HPI General Chief complaint: General Adult/Misc Complain Stated complaint: FEELS DEHYDRATED Time Seen by Provider: 04/03/25 18:16 Arrival date/time: 04/03/25 17:06 RME / HPI RME / HPI narrative: Dr. 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 Associated shortness of breath, occasional diaphoresis, palpitations, lightheadedness, and near syncope. Variably affected by exertion. No pleuritic component. Reported negative NST in 2017. Cardiac Risk Factors: + HTN, DM, HLD, and tobacco use. + Family history. PE Risk Factors: No recent prolonged travel, personal history of DVT/PE, HRT, prior recent surgeries. + Tobacco use. Related Data Home Medications ?Medication ?Instructions ?Recorded ?Confirmed Hum Insulin Nph/Reg Insulin Hm 25 u subcut AM/PM DIABETES ##0 11/03/09 (Novolin 70/30 100 Units/Ml Via) gabapentin 100 mg capsule 600 mg PO TID PAIN #0 caps 07/18/13 atenolol 25 mg tablet (Tenormin) 25 mg PO HS #0 tabs 07/23/14 Aspirin (Adult Low Strength Aspir) 81 mg PO QDAY ##30 11/28/16 Atorvastatin Calcium 10 mg PO HS ##30 11/28/16 Citalopram Hydrobromide * (CELEXA 20 mg PO QDAY ##30 11/28/16 *) alprazolam 0.25 mg tablet 0.25 mg PO BID ##60 11/28/16 glipizide 5 mg tablet 5 mg PO QDAY ##60 11/28/16 hydrochlorothiazide 25 mg tablet 25 mg PO QDAY ##30 11/28/16 lisinopril 10 mg tablet 10 mg PO QDAY ##30 11/28/16 Previous Rx's ?Medication ?Instructions ?Recorded Hydrocodone/Acetaminophen * (NORCO 1 tab PO Q6H PRN PAIN #28 tabs 05/28/15 5/325 *) Hydrocodone/Acetaminophen * (NORCO 1 - 2 tab PO Q4H PRN PAIN #20 tabs 05/30/16 5/325 *) empty container (Sharps Container) #1 ea 12/26/23 ibuprofen 800 mg tablet 800 mg PO TID PRN pain #30 tabs 05/15/24 guaifenesin 100 mg/5 mL oral liquid 200 mg (10 mL) PO Q4H PRN cough 09/07/24 #473 mL hydroxyzine HCl 10 mg tablet 10 mg PO TID PRN anxiety #14 tabs 10/31/24 hydroxyzine pamoate 25 mg capsule 25 mg PO TID PRN anxiety #30 caps 04/04/25 Allergies Allergy/AdvReac Type Severity Reaction Status Date / Time ciprofloxacin Allergy Severe HIVES, Verified 01/03/25 11:28 VOMITING Sulfa (Sulfonamide Allergy Severe ABD PAIN Verified 01/03/25 11:28 Antibiotics) AND VOMITING Review of Systems Review of Systems Systems Reviewed: All systems reviewed, normal except as documented Past Medical History Past Medical History CARDIAC: Positive Hypertension; Negative Congestive Heart Failure RESPIRATORY: Negative Chronic Obstructive Pulmonary Disease (COPD) GENITOURINARY: Negative Renal Disease MUSCULOSKELETAL: Positive Rheumatoid Arthritis ENDOCRINE: Positive Diabetes Mellitus Type 2; Negative Diabetes Mellitus Type 1 Family History FAMILY HISTORY: Positive Family Cancer Social History SMOKING STATUS: Current every day smoker ED Exam Narrative Physical exam: GENERAL APPEARANCE: alert and oriented x 4, appears quite anxious, gaunt, well-developed, well-nourished, no acute distress VITALS: All vitals were reviewed and the pulse ox is 99% on room air, which is normal according to my interpretation. HEENT: Normocephalic, atraumatic; pupils equal, round, reactive to light; EOMI; mucous membranes pink, moist; oropharynx clear NECK: Supple, no JVD LUNGS: CTABL; no wheezes, no rales, no rhonchi HEART: Regular rate, regular rhythm; normal S1, S2; no murmurs ABDOMEN: non distended; normal BS; soft, mild tenderness throughout, no guarding, no rebound BACK: no CVA tenderness EXTREMITIES: atraumatic; no edema; no calf tenderness NEUROLOGIC: awake; alert and oriented x4; cranial nerves II-XII grossly intact; no focal sensory or motor deficits PSYCHIATRIC: appropriate mood and affect SKIN: warm, dry, normal color; no rashes Course Course Course Narrative: CXR is ordered for determining the etiology of chest pain. Quality Measures none Orders Category Date Time Status EKG (ED ONLY) *Do not use* NOW Care 04/03/25 18:32 Completed EKG (ED Only) Stat Exams 04/03/25 18:32 Draft XR chest 2V Stat Exams 04/03/25 18:32 Completed B-Type Natriuretic Peptide Stat Lab 04/03/25 18:48 Completed CBC Stat Lab 04/03/25 18:48 Completed Comprehensive Metabolic Panel Stat Lab 04/03/25 18:48 Completed Drug Screen,Urine Stat Lab 04/03/25 20:09 Completed Magnesium Stat Lab 04/03/25 18:48 Completed Troponin I Stat Lab 04/03/25 18:48 Completed Urinalysis, C/S if Indicated Stat Lab 04/03/25 20:09 Completed Aspirin Med 04/03/25 18:32 Discontinued 325 mg PO X1 ONE Insulin Regular Med 04/03/25 22:22 Discontinued 6 unit IV X1 ONE Sodium Chloride 0.9% 1000 ml [Ns] 1,000 ml Med 04/03/25 20:18 Discontinued IV 999 mls/hr Sodium Chloride 0.9% 1000 ml [Ns] 2,000 ml Med 04/03/25 20:18 Discontinued IV 999 mls/hr hydrOXYzine HCL [Atarax] Med 04/03/25 18:32 Discontinued 25 mg PO X1 ONE Vital Signs Vital signs: Vital Signs Temperature 97.6 F 04/03/25 17:11 Pulse Rate 68 04/03/25 17:11 Respiratory Rate 18 04/03/25 17:11 Blood Pressure 170/84 H 04/03/25 17:11 Pulse Oximetry (%) 99 04/03/25 17:11 Oxygen Delivery Method Room Air 04/03/25 17:11 Discharge Plan Plan Patient Disposition: HOME (Self Care) Discharge Disposition comment: Stable Prescriptions/Referrals Prescriptions/Med Rec: New hydroxyzine pamoate 25 mg capsule 25 mg PO TID PRN (Reason: anxiety) Qty: 30 0RF No Action Hum Insulin Nph/Reg Insulin Hm (Novolin 70/30 100 Units/Ml Via) 10 ML VIAL 25 u Sub-Q AM/PM Qty: 0 gabapentin 100 MG capsule 600 mg PO TID Qty: 0 atenolol [Tenormin] 25 MG tablet 25 mg PO HS Qty: 0 Hydrocodone/Acetaminophen * (NORCO 5/325 *) 1 TAB tablet 1 tab PO Q6H PRN (Reason: PAIN) Qty: 28 0RF Hydrocodone/Acetaminophen * (NORCO 5/325 *) 1 TAB tablet 1 - 2 tab PO Q4H PRN (Reason: PAIN) Qty: 20 0RF Rx Instructions: FOR PAIN Aspirin (Adult Low Strength Aspir) 81 MG TABLET.DR 81 mg PO QDAY Qty: 30 Atorvastatin Calcium 10 MG tablet 10 mg PO HS Qty: 30 alprazolam 0.25 MG tablet 0.25 mg PO BID Qty: 60 lisinopril 10 MG tablet 10 mg PO QDAY Qty: 30 hydrochlorothiazide 25 MG tablet 25 mg PO QDAY Qty: 30 glipizide 5 MG tablet 5 mg PO QDAY Qty: 60 Citalopram Hydrobromide * (CELEXA *) 20 MG tablet 20 mg PO QDAY Qty: 30 (DME) Sharps Container Misc See Rx Instructions .Route Qty: 1 0RF Rx Instructions: As directed ibuprofen 800 mg tablet 800 mg PO TID PRN (Reason: pain) Qty: 30 0RF guaifenesin 100 mg/5 mL liquid 200 mg PO Q4H PRN (Reason: cough) Qty: 473 0RF hydroxyzine HCl 10 mg tablet 10 mg PO TID PRN (Reason: anxiety) Qty: 14 0RF Referrals: No Primary/Family,Physician [Primary Care Provider] - In 1 week Problem List Clinical Impression: Nonspecific chest pain, Generalized anxiety disorder, Hyperglycemia without ketosis Patient/Caregiver Discharge Instructions Discharge Activity: activity as tolerated Diet Instructions: Low-salt Education Materials: Anxiety Disorders Tx Therapy, Understanding Anxiety Disorders, ED Chest Pain, Noncardiac Additional Instructions: Increase fluid hydration. Medications as directed. Will increase NPH/regular insulin to 28 units twice daily. Print Language: Luxembourger Stand Alone Forms: Roberta Award Info., Patient Portal Info Letter MDM Narrative [facility] hospital course: Scribe Attestation: 04/03/25 - Preethi Frazier am scribing for and in the presence of Dr. Carranza. 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 Associated shortness of breath, occasional diaphoresis, palpitations, lightheadedness, and near syncope. Please see PE findings. Lab markers demonstrate marginally elevated blood sugar of 714. Patient however not acidotic with CO2 25, Na 125, troponin unremarkable, UA without evidence of infection, tox screen negative. Patient placed on manager cardiac, IV established, aggressively hydrated with saline with gradual reduction of blood sugar. IV Insulin given with further reduction of blood sugar to the 200 range. No evidence of DKA. Patient underwent cardiac work-up and is without ischemia, infarction, or pericarditis. After extended period of time, patient is considered stable for discharge. Will comply with patient's request for Atarax for anxiety and reassure regarding cardiac status. Dx: nonspecific chest pain, hyperglycemia without ketosis, PADILLA Clinical Information Provided by patient Medical Records Reviewed [facility] (Per chart review, patient was seen here yesterday for anxiety.) Meds/Rx Considered, not Ordered None Labs/Rad/Tests considered, not Ordered None Chronic Illness/Social Conditions Add or document further as needed: Hx DM, HTN, HLD, RA, PADILLA EKG EKG Interpretation narrative: EKG done at 1837, sinus rhythm, rate of 87, no acute pathological ST segment changes, no ectopy, normal intervals, left axis deviation, according to my interpretation. Lab Interpretation Labs: interpreted by co Lab(s) interpretation(s): See MDM. Imaging Imaging interpretation: interpreted by co Radiology reports / interpretation(s): [facility] Report Signed Patient: YESSY GUTIERREZ. Record#: [id number] Birthdate: 1970 Age/Sex: 54 / F Location: [facility] Attending Dr: Ordering Physician: Nnamdi Campa DO Date of Service: 04/03/25 Procedure(s): XR chest 2V Accession Number(s): [id number] cc: Nnamdi Campa DO; Quinten Humphrey MD; NO PRIMARY/FAMILY,PHYSICIAN~ Examination: PA lateral chest 2 views Technique: Upright PA lateral chest 2 views Date and time: April 03, 2025, 1936 hrs., Comparison March 21, 2025 Indications: Chest pain beginning 2 days ago. Findings: Normal heart size. Lungs are clear. The osseous structures are intact Impression: No active disease. Dictated By: Quinten Humphrey MD Signed By: <Electronically signed by Quinten Humphrey MD in OV> 04/03/251946 Medication Administration(s) Medication Administration History Discontinued Medications Aspirin (Aspirin 325 Mg Tablet) 325 mg PO X1 ONE Stop: 04/03/25 18:33 Last Admin: 04/03/25 18:50 Dose: 325 mg Documented By: OA Hydroxyzine HCl (Hydroxyzine Hcl 25 Mg Tablet) 25 mg PO X1 ONE Stop: 04/03/25 18:33 Last Admin: 04/03/25 18:51 Dose: 25 mg Documented By: DENA Sodium Chloride (Ns) 1,000 mls @ 999 mls/hr IV .Q1H1M ONE Stop: 04/03/25 21:18 Last Infusion: 04/03/25 22:04 Dose: Infused Documented By: Admin: 04/03/25 20:24 Dose: 999 mls/hr Documented By: JEANE Sodium Chloride (Ns) 2,000 mls @ 999 mls/hr IV .Q2H1M ONE Stop: 04/03/25 22:18 Last Infusion: 04/03/25 22:49 Dose: Infused Documented By: Admin: 04/03/25 20:26 Dose: 999 mls/hr Documented By: JEANE Insulin Human Regular (Insulin Hum Regular 1 Unit/0.01 Ml (Per Unit)) 6 unit IV X1 ONE Stop: 04/03/25 22:23 Last Admin: 04/03/25 22:29 Dose: 6 unit Documented By: JEANE Co-signed By: DONI see above Diagnosis Differential diagnosis: ACS, STEMI, NSTEMI, PADILLA, panic attack, nonspecific chest pain Most likely dx, and/or detailed dx discussion: see clinical impression below Dispositon Disposition: Discharge Home
--- NOTE | 2025-04-03 18:32 | EKG_ITS ---
[facility] Test Date: 2025-04-03 Pat Name: YESSY GUTIERREZ Department: Room: - Gender: Female [employer]: : 1970 Requested By: Nnamdi Duenas Order Number: [id number] Reading MD: Nnamdi Duenas Measurements Intervals Gray Rate: 87 P: 24 MN: 136 QRS: 4 QRSD: 89 T: 54 QT: 380 QTc: 459 Interpretive Statements SINUS RHYTHM POSSIBLE LEFT ATRIAL ENLARGEMENT [-0.1mV P-WAVE IN V1/V2] POSSIBLE ANTERIOR MYOCARDIAL INFARCTION , PROBABLY OLD [30 ms Q WAVE IN V3/V4, OR R < 0.2 mV IN V4] Compared to ECG 03/21/2025 14:39:39 Myocardial infarct finding now present Short MN interval no longer present /store/S0/[id number]/ecg/[id number].pdf
--- NOTE | 2025-04-03 18:32 | XR_ITS ---
Examination: PA lateral chest 2 views Technique: Upright PA lateral chest 2 views Date and time: April 03, 2025, 1936 hrs., Comparison March 21, 2025 Indications: Chest pain beginning 2 days ago. Findings: Normal heart size. Lungs are clear. The osseous structures are intact Impression: No active disease.
[2025-04-03 19:15] LABS: Basophils # (Auto) 0.0 Thou/mm3 (0.0-0.2); Basophils % (Auto) 1 % (0-2.5); Eosinophils # (Auto) 0.1 Thou/mm3 (0.0-0.5); Eosinophils % (Auto) 1 % (0-10); Hematocrit 33.9 % (36.0-46.0); Hemoglobin 11.5 g/dL (12.0-16.0); Immature Granulocytes Auto 0.02 Thou/mm3 (0.00-0.00); Lymphocytes # (Auto) 2.5 Thou/mm3 (1.0-4.8); Lymphocytes % (Auto) 34 % (10-50); Mean Corpuscular HGB Conc 33.9 g/dl (31.0-37.0); Mean Corpuscular Hemoglobin 29.0 pg (25.0-35.0); Mean Corpuscular Volume 86 fL (80-100); Monocytes # (Auto) 0.5 Thou/mm3 (0.0-0.8); Monocytes % (Auto) 6 % (0-12); Neutrophils # (Auto) 4.2 Thou/mm3 (1.8-7.7); Neutrophils % (Auto) 58 % (37-80); Nucleated Red Blood Cell # 0.00 Thou/mm3 (0.00-0.00); Nucleated Red Blood Cell % 0 /100 WBC (0); Platelet Count 282 Thou/mm3 (140-440); RDW Standard Deviation 45.1 fL (36.4-46.3); Red Blood Count 3.96 Miln/mm3 (4.00-5.20); White Blood Count 7.3 Thou/mm3 (3.6-11.0)
[2025-04-03 19:33] LABS: B-Type Natriuretic Peptide < 20 pg/mL (0-100)
[2025-04-03 19:42] LABS: Alanine Aminotransferase 17 U/L (10-49); Albumin, Serum 4.1 gm/dL (3.5-5.0); Albumin/Globulin Ratio 1.4 (1.2-2.2); Alkaline Phosphatase 118 U/L (46-116); Anion Gap 10 (7-16); Aspartate Amino Transferase 28 U/L (0-34); BUN/Creatinine Ratio 7 Ratio (12-20); Bilirubin,Total 0.5 mg/dL (0.3-1.2); Blood Urea Nitrogen 9 mg/dL (9-23); Calcium 9.1 mg/dL (8.3-10.6); Calcium (Corrected) 9.1 mg/dL (8.5-10.1); Carbon Dioxide 25.0 mMol/L (20.0-31.0); Chloride 90 mMol/L (98-107); Creatinine (Component) 1.3 mg/dL (0.6-1.3); Estimated Creatinine Clearance 43.7 mL/min (>60); Globulin 2.9 gm/dL (2.3-3.5); Magnesium 1.8 mg/dL (1.6-2.6); Osmolality,Calculated 284 (275-295); Potassium 3.6 mMol/L (3.4-5.1); Sodium 125 mMol/L (136-145); Total Protein 7.0 gm/dL (5.7-8.2); Troponin I < 0.002 ng/mL (0.0-0.045); eGFR 49 See Note
[2025-04-03 19:45] LABS: Glucose 714 mg/dL (74-106)
[2025-04-03] MEDS: SODIUM CHLORIDE 0.9% 1000 ML 1,000 ML 999 ML IV (20:24)
[2025-04-03 20:25] LABS: Collection Type, Urine Clean Catch
[2025-04-03] MEDS: SODIUM CHLORIDE 0.9% 1000 ML 2,000 ML 999 ML IV (20:26)
[2025-04-03 20:42] LABS: Bacteria,Urine Rare; Bilirubin,Urine Negative (Negative); Blood,Urine Negative (Negative); Clarity,Urine Clear (Clear/Hazy); Color,Urine Colorless (Lt Yel-Yel); Culture Indicated,Urine Not Indicated; Glucose, Urine 4+ (Negative); Ketones,Urine Negative (Negative); Leukocyte Esterase,Urine Positive (Negative); Nitrite,Urine Negative (Negative); PH,Urine 6.5 (5.0-7.0); Protein,Urine Negative (Neg - Trace); RBC,Urine 7 /hpf (0-3); Specific Gravity,Urine 1.031 (1.001-1.035); Squamous Epithelial Cell,Urine 5 /hpf (0-5); Urobilinogen,Urine Negative mg/dL (0.0-1.0); WBC,Urine 3 /hpf (0-5)
[2025-04-03 20:58] LABS: Amphetamine/Methamp Scrn,U Negative (Negative); Barbiturate Screen,Urine Negative (Negative); Benzodiazepines Screen,Urine Negative (Negative); Benzoylecgonine Screen, Ur Negative (Negative); Fentanyl Screen,Urine Negative (Negative); Opiate Screen,Urine Negative (Negative); THC Screen,Urine Negative (Negative)
[2025-04-03] MEDS: INSULIN HUM REGULAR 1 UNIT/0.01 ML (PER UNIT) 6 UNIT IV (22:29)
[2025-04-04 02:12] VITALS: PULSE 73; RESP 17; TEMP 36.8
== END 2025-04-04 02:28 | disposition home or self-care (01) ==
PROVIDERS: Emergency Provider Emergency Medicine
DX: R07.89 Other chest pain (principal); F41.1 Generalized anxiety disorder; E11.65 Type 2 diabetes mellitus with hyperglycemia; E78.5 Hyperlipidemia, unspecified; I10 Essential (primary) hypertension; Z59.00 Homelessness unspecified
CPT/HCPCS: 36415; 71046; 80053; 80307; 81001; 83735; 83880; 84484; 85025; 93005; 96360; 96361; 99283; J1815; J7030; A9270

== ENCOUNTER 2025-04-05 11:01 | Emergency (ER) | payer MEDICAID, SELFPAY ==
[2025-04-05 11:13] VITALS: PULSE 91; O2SAT 99; BMI 20.8
[2025-04-05 11:31] VITALS: BP 154/85; PULSE 86; RESP 18; TEMP 36.4; O2SAT 100
--- NOTE | 2025-04-05 11:34 | EDNOTE_ITS ---
<Statement entered by Jazz Pena MD - 04/06/25 06:32> As co-signing physician, I was present and available for consult prn. I concur with the plan and care as documented by the midlevel provider. ED General RME/HPI General Chief complaint: Weakness Stated complaint: WEAK/DIZZY/ OUT OF INSULIN Time Seen by Provider: 04/05/25 11:13 Arrival date/time: 04/05/25 11:01 CC: Elevated blood glucose HPI patient is homeless and has had multiple visits to this emergency he arrives via EMS with a blood sugar registering high , the patient was seen here 2 days ago for the same complaint patient is not picked up her insulin at the pharmacy. Patient denies chest pain shortness of breath or difficulty breathing. Related Data Home Medications ?Medication ?Instructions ?Recorded ?Confirmed Hum Insulin Nph/Reg Insulin Hm 25 u subcut AM/PM DIABE YELENA ##0 11/03/09 (Novolin 70/30 100 Units/Ml Via) gabapentin 100 mg capsule 600 mg PO TID PAIN #0 caps 1 09/18/12 atenolol 25 mg tablet (Tenormin) 25 mg PO HS #0 tabs 0 07/23/14 Aspirin (Adult Low Strength Aspir) 81 mg PO QDAY ##30 11/28/16 Atorvastatin Calcium 10 mg PO HS ##30 11/28/16 Citalopram Hydrobromide * (CELEXA 20 mg PO QDAY ##30 0 11/28/16 *) alprazolam 0.25 mg tablet 0.25 mg PO BID ##60 11/28/16 glipizide 5 mg tablet 5 mg PO QDAY ##60 11/28/16 hydrochlorothiazide 25 mg tablet 25 mg PO QDAY ##30 lisinopril 10 mg tablet 10 mg PO QDAY ##30 11/28/16 Previous Rx's ?Medication ?Instructions ?Recorded Hydrocodone/Acetaminophen * (NORCO 1 tab PO Q6H PRN PA IN #28 tabs 05/28/15 5/325 *) Hydrocodone/Acetaminophen * (NORCO 1 - 2 tab PO Q4H UT N PAIN #20 tabs 05/30/16 5/325 *) empty container (Sharps Container) #1 ea 12/26/23 ibuprofen 800 mg tablet 800 mg PO TID PRN pain #30 t abs 05/15/24 guaifenesin 100 mg/5 mL oral liquid 200 mg (10 mL) PO Q4H PRN cough 09/07/24 #473 mL hydroxyzine HCl 10 mg tablet 10 mg PO TID PRN anxiety #14 tabs 10/31/24 hydroxyzine pamoate 25 mg capsule 25 mg PO TID PRN anx iety #30 caps 04/04/25 Allergies Allergy/AdvReac Type Severity Reaction Status Date / Time ciprofloxacin Allergy Severe HIVES, Verified 04/05/25 11:17 VOMITING Sulfa (Sulfonamide Allergy Severe ABD PAIN Verified 04/05/25 11:17 Antibiotics) AND VOMITING Review of Systems Review of Systems Narrative Review of Systems: GEN: No fever, no chills, no weight loss EYES: No discharge, no visual changes, no pain HEENT: No ear pain, no congestion, no sore throat PULM: No shortness of breath, no cough, no congestion CV: No chest pain, no dyspnea on exertion, no palpitations GI: No nausea, no vomiting, no diarrhea, no pain, no constipation : No frequency, no urgency, no dysuria MUSC/SKEL: No joint pain, no back pain SKIN: No rash PSYCH: No hallucinations, no depression HEME/LYMPH: No easy bleeding or bruising tendencies NEURO: No weakness, no headache Past Medical History Past Medical History CARDIAC: Positive Hypertension; Negative Congestive Heart Failure RESPIRATORY: Negative Chronic Obstructive Pulmonary Disease (COPD) GENITOURINARY: Negative Renal Disease MUSCULOSKELETAL: Positive Rheumatoid Arthritis ENDOCRINE: Positive Diabetes Mellitus Type 2; Negative Diabetes Mellitus Type 1 Family History FAMILY HISTORY: Positive Family Cancer Social History SMOKING STATUS: Current some day smoker ED Exam Narrative Physical exam: [General: Not in any acute distress Head normocephalic HEENT: Within acceptable limits Neck is supple nontender Chest equal chest rise nontender to palpation Respiratory: Clear to auscultation no wheezes crackles or rubs CV: Rate rhythm is regular no murmurs rubs or clicks Abdomen is soft nontender no masses positive bowel sounds all 4 quadrants Back: No CVA tenderness no spinous process tenderness from cervical spine thoracic and lumbar spine Skin: Intact no petechiae rash induration ulceration or crepitus Extremities: Moving all extremity against resistance cap refill less than 2 seconds neurosensory intact Neuro: Awake alert oriented x3 Glascow coma 15 no focal deficits] Course Course Course Narrative: Repeat glucose was 493 patient will be discharged home Quality Measures none Orders Category Date Time Status Glucose [Bedside Blood Glucose] NOW Care 04/05/25 14:11 Completed Beta Hydroxybutyrate Stat Lab 04/05/25 11:56 Completed CBC Stat Lab 04/05/25 11:56 Completed CMP [Comprehensive Metabolic Panel] Stat Lab 04/05/25 11:56 Completed Insulin Regular Med 04/05/25 12:48 Discontinued 10 unit SC X1 ONE Vital Signs Vital signs: Vital Signs Temperature 97.5 F 04/05/25 11:31 Pulse Rate 86 04/05/25 11:31 Respiratory Rate 18 04/05/25 11:31 Blood Pressure 154/85 H 04/05/25 11:31 Pulse Oximetry (%) 100 04/05/25 11:31 Oxygen Delivery Method Room Air 04/05/25 11:31 Discharge Plan Plan Patient Disposition: HOME (Self Care) Patient condition on transfer: Stable Prescriptions/Referrals Prescriptions/Med Rec: No Action Hum Insulin Nph/Reg Insulin Hm (Novolin 70/30 100 Units/Ml Via) 10 ML VIAL 25 u Sub-Q AM/PM Qty: 0 gabapentin 100 MG capsule 600 mg PO TID Qty: 0 atenolol [Tenormin] 25 MG tablet 25 mg PO HS Qty: 0 Hydrocodone/Acetaminophen * (NORCO 5/325 *) 1 TAB tablet 1 tab PO Q6H PRN (Reason: PAIN) Qty: 28 0RF Hydrocodone/Acetaminophen * (NORCO 5/325 *) 1 TAB tablet 1 - 2 tab PO Q4H PRN (Reason: PAIN) Qty: 20 0RF Rx Instructions: FOR PAIN Aspirin (Adult Low Strength Aspir) 81 MG TABLET.DR 81 mg PO QDAY Qty: 30 Atorvastatin Calcium 10 MG tablet 10 mg PO HS Qty: 30 alprazolam 0.25 MG tablet 0.25 mg PO BID Qty: 60 lisinopril 10 MG tablet 10 mg PO QDAY Qty: 30 hydrochlorothiazide 25 MG tablet 25 mg PO QDAY Qty: 30 glipizide 5 MG tablet 5 mg PO QDAY Qty: 60 Citalopram Hydrobromide * (CELEXA *) 20 MG tablet 20 mg PO QDAY Qty: 30 (DME) Sharps Container Misc See Rx Instructions .Route Qty: 1 0RF Rx Instructions: As directed ibuprofen 800 mg tablet 800 mg PO TID PRN (Reason: pain) Qty: 30 0RF guaifenesin 100 mg/5 mL liquid 200 mg PO Q4H PRN (Reason: cough) Qty: 473 0RF hydroxyzine HCl 10 mg tablet 10 mg PO TID PRN (Reason: anxiety) Qty: 14 0RF hydroxyzine pamoate 25 mg capsule 25 mg PO TID PRN (Reason: anxiety) Qty: 30 0RF Referrals: Elie Manrique MD [Physician, Family Practice] - In 1 week No Primary/Family,Physician [Primary Care Provider] - In 1 week Problem List Clinical Impression: Hyperglycemia due to diabetes mellitus Patient/Caregiver Discharge Instructions Other Activity Instructions:: Please oyster picker your medications and start taking them as prescribed Education Materials: ED Diabetes with High Blood Sugar Print Language: Burundian Stand Alone Forms: Roberta Award Info., Patient Portal Info Letter PA/EQUIPMENT MAINT TECH Supervising Physician PA/EQUIPMENT MAINT TECH Supervising Physician: Janak Vance ENP MDM Clinical Information Provided by patient and EMS Medical Records Reviewed [facility] and EMS Meds/Rx Considered, not Ordered None Labs/Rad/Tests considered, not Ordered None Medication Administration(s) Medication Administration History Discontinued Medications Insulin Human Regular (Insulin Hum Regular 1 Unit/0.01 Ml (Per Unit)) 10 unit SC X1 ONE Stop: 04/05/25 12:49 Last Admin: 04/05/25 14:15 Dose: 10 unit Documented By: Co-signed By: BY
[2025-04-05 12:08] LABS: Beta Hydroxybutyrate 0.1 mmol/L (<0.6)
[2025-04-05 12:18] LABS: Basophils # (Auto) 0.0 Thou/mm3 (0.0-0.2); Basophils % (Auto) 0 % (0-2.5); Eosinophils # (Auto) 0.0 Thou/mm3 (0.0-0.5); Eosinophils % (Auto) 0 % (0-10); Hematocrit 33.5 % (36.0-46.0); Hemoglobin 11.3 g/dL (12.0-16.0); Immature Granulocytes Auto 0.03 Thou/mm3 (0.00-0.00); Lymphocytes # (Auto) 2.5 Thou/mm3 (1.0-4.8); Lymphocytes % (Auto) 26 % (10-50); Mean Corpuscular HGB Conc 33.7 g/dl (31.0-37.0); Mean Corpuscular Hemoglobin 29.5 pg (25.0-35.0); Mean Corpuscular Volume 88 fL (80-100); Monocytes # (Auto) 0.5 Thou/mm3 (0.0-0.8); Monocytes % (Auto) 5 % (0-12); Neutrophils # (Auto) 6.4 Thou/mm3 (1.8-7.7); Neutrophils % (Auto) 67 % (37-80); Nucleated Red Blood Cell # 0.00 Thou/mm3 (0.00-0.00); Nucleated Red Blood Cell % 0 /100 WBC (0); Platelet Count 263 Thou/mm3 (140-440); RDW Standard Deviation 48.0 fL (36.4-46.3); Red Blood Count 3.83 Miln/mm3 (4.00-5.20); White Blood Count 9.5 Thou/mm3 (3.6-11.0)
[2025-04-05 12:36] LABS: Alanine Aminotransferase 22 U/L (10-49); Albumin, Serum 3.8 gm/dL (3.5-5.0); Albumin/Globulin Ratio 1.3 (1.2-2.2); Alkaline Phosphatase 112 U/L (46-116); Anion Gap 13 (7-16); Aspartate Amino Transferase 30 U/L (0-34); BUN/Creatinine Ratio 6 Ratio (12-20); Bilirubin,Total 0.4 mg/dL (0.3-1.2); Blood Urea Nitrogen 7 mg/dL (9-23); Calcium 8.3 mg/dL (8.3-10.6); Calcium (Corrected) 8.5 mg/dL (8.5-10.1); Carbon Dioxide 22.2 mMol/L (20.0-31.0); Chloride 89 mMol/L (98-107); Creatinine (Component) 1.1 mg/dL (0.6-1.3); Estimated Creatinine Clearance 55.3 mL/min (>60); Globulin 2.9 gm/dL (2.3-3.5); Osmolality,Calculated 281 (275-295); Potassium 3.5 mMol/L (3.4-5.1); Sodium 124 mMol/L (136-145); Total Protein 6.7 gm/dL (5.7-8.2); eGFR > 60 See Note
[2025-04-05 12:38] LABS: Glucose 706 mg/dL (74-106)
[2025-04-05] MEDS: INSULIN HUM REGULAR 1 UNIT/0.01 ML (PER UNIT) 10 UNIT SC (14:15)
== END 2025-04-05 16:10 | disposition home or self-care (01) ==
PROVIDERS: Registered Nurse General Practice; Emergency Provider Emergency Medicine
DX: E11.65 Type 2 diabetes mellitus with hyperglycemia (principal); Z79.4 Long term (current) use of insulin; Z59.00 Homelessness unspecified
CPT/HCPCS: 36415; 80053; 82010; 85025; 99283; J1815

== ENCOUNTER 2025-04-11 11:25 | Emergency (ER) | payer MEDICAID, SELFPAY ==
[2025-04-11 11:26] VITALS: BMI 20.9
[2025-04-11 11:33] VITALS: BP 124/71; PULSE 113; RESP 17; TEMP 37.2; O2SAT 97
--- NOTE | 2025-04-11 11:53 | PD.EDADULT ---
ED General RME/HPI General Chief complaint: Anxiety Stated complaint: PANIC ATTACK AFTER ARRESTED TODAY Time Seen by Provider: 04/11/25 11:43 Arrival date/time: 04/11/25 11:25 CC: Anxiety elevated blood glucose level HPI onset today patient is well-known to me as she is homeless, stating that she has not been taking her medications. The patient used the same reasoning as the last visit that all of her items were not returned to her including her medications. She states that she picked up her medications from the pharmacy. Patient currently denies headache fever chills shortness of breath or difficulty breathing. She is awake alert oriented nontoxic-appearing not in any acute distress. Related Data Home Medications ?Medication ?Instructions ?Recorded ?Confirmed Hum Insulin Nph/Reg Insulin Hm 25 u subcut AM/PM DIABETES ##0 11/03/09 (Novolin 70/30 100 Units/Ml Via) gabapentin 100 mg capsule 600 mg PO TID PAIN #0 caps 07/18/13 atenolol 25 mg tablet (Tenormin) 25 mg PO HS #0 tabs 07/23/14 Aspirin (Adult Low Strength Aspir) 81 mg PO QDAY ##30 11/28/16 Atorvastatin Calcium 10 mg PO HS ##30 11/28/16 Citalopram Hydrobromide * (CELEXA 20 mg PO QDAY ##30 11/28/16 *) alprazolam 0.25 mg tablet 0.25 mg PO BID ##60 11/28/16 glipizide 5 mg tablet 5 mg PO QDAY ##60 11/28/16 hydrochlorothiazide 25 mg tablet 25 mg PO QDAY ##30 11/28/16 lisinopril 10 mg tablet 10 mg PO QDAY ##30 11/28/16 Previous Rx's ?Medication ?Instructions ?Recorded Hydrocodone/Acetaminophen * (NORCO 1 tab PO Q6H PRN PAIN #28 tabs 05/28/15 5/325 *) Hydrocodone/Acetaminophen * (NORCO 1 - 2 tab PO Q4H PRN PAIN #20 tabs 05/30/16 5/325 *) empty container (Sharps Container) #1 ea 12/26/23 ibuprofen 800 mg tablet 800 mg PO TID PRN pain #30 tabs 05/15/24 guaifenesin 100 mg/5 mL oral liquid 200 mg (10 mL) PO Q4H PRN cough 09/07/24 #473 mL hydroxyzine HCl 10 mg tablet 10 mg PO TID PRN anxiety #14 tabs 10/31/24 hydroxyzine pamoate 25 mg capsule 25 mg PO TID PRN anxiety #30 caps 04/04/25 Allergies Allergy/AdvReac Type Severity Reaction Status Date / Time ciprofloxacin Allergy Severe HIVES, Verified 04/11/25 11:28 VOMITING Sulfa (Sulfonamide Allergy Severe ABD PAIN Verified 04/11/25 11:28 Antibiotics) AND VOMITING Review of Systems Review of Systems Narrative Review of Systems: GEN: No fever, no chills, no weight loss EYES: No discharge, no visual changes, no pain HEENT: No ear pain, no congestion, no sore throat PULM: No shortness of breath, no cough, no congestion CV: No chest pain, no dyspnea on exertion, no palpitations GI: No nausea, no vomiting, no diarrhea, no pain, no constipation : No frequency, no urgency, no dysuria MUSC/SKEL: No joint pain, no back pain SKIN: No rash PSYCH: No hallucinations, no depression HEME/LYMPH: No easy bleeding or bruising tendencies NEURO: No weakness, no headache Past Medical History Past Medical History CARDIAC: Positive Hypertension; Negative Congestive Heart Failure RESPIRATORY: Negative Chronic Obstructive Pulmonary Disease (COPD) GENITOURINARY: Negative Renal Disease MUSCULOSKELETAL: Positive Rheumatoid Arthritis ENDOCRINE: Positive Diabetes Mellitus Type 2; Negative Diabetes Mellitus Type 1 Family History FAMILY HISTORY: Positive Family Cancer Social History SMOKING STATUS: Current some day smoker ED Exam Narrative Physical exam: [General: Thin but not emaciated not in any acute distress Head normocephalic HEENT: Eyes pupils are PERRLA EOMs are intact mouth pink moist membranes uvula is midline swallow symmetrical phonation is normal. All of the subsystems of HEENT are within acceptable limits Neck is supple nontender no JVD no edema Chest equal chest rise nontender to palpation Respiratory: Clear to auscultation no wheezes crackles or rubs CV: Rate rhythm is regular no murmurs rubs or clicks Abdomen is soft nontender no masses positive bowel sounds all 4 quadrants Back: No CVA tenderness no spinous process tenderness from cervical spine thoracic and lumbar spine Skin: Intact no petechiae rash induration ulceration or crepitus Extremities: Moving all extremity against resistance cap refill less than 2 seconds neurosensory intact Neuro: Awake alert oriented x2, person and place, Glascow coma 15 no focal deficits] Course Quality Measures none Orders Category Date Time Status Glucose [Bedside Blood Glucose] NOW Care 04/11/25 11:53 Completed Insulin Regular Med 04/11/25 12:28 Discontinued 5 unit SC X1 ONE Vital Signs Vital signs: Vital Signs Temperature 98.9 F 04/11/25 11:33 Pulse Rate 113 H 04/11/25 11:33 Respiratory Rate 17 04/11/25 11:33 Blood Pressure 124/71 04/11/25 11:33 Pulse Oximetry (%) 97 04/11/25 11:33 Oxygen Delivery Method Room Air 04/11/25 11:33 Discharge Plan Plan Patient Disposition: HOME (Self Care) Patient condition on transfer: Stable Prescriptions/Referrals Prescriptions/Med Rec: No Action Hum Insulin Nph/Reg Insulin Hm (Novolin 70/30 100 Units/Ml Via) 10 ML VIAL 25 u Sub-Q AM/PM Qty: 0 gabapentin 100 MG capsule 600 mg PO TID Qty: 0 atenolol [Tenormin] 25 MG tablet 25 mg PO HS Qty: 0 Hydrocodone/Acetaminophen * (NORCO 5/325 *) 1 TAB tablet 1 tab PO Q6H PRN (Reason: PAIN) Qty: 28 0RF Hydrocodone/Acetaminophen * (NORCO 5/325 *) 1 TAB tablet 1 - 2 tab PO Q4H PRN (Reason: PAIN) Qty: 20 0RF Rx Instructions: FOR PAIN Aspirin (Adult Low Strength Aspir) 81 MG TABLET.DR 81 mg PO QDAY Qty: 30 Atorvastatin Calcium 10 MG tablet 10 mg PO HS Qty: 30 alprazolam 0.25 MG tablet 0.25 mg PO BID Qty: 60 lisinopril 10 MG tablet 10 mg PO QDAY Qty: 30 hydrochlorothiazide 25 MG tablet 25 mg PO QDAY Qty: 30 glipizide 5 MG tablet 5 mg PO QDAY Qty: 60 Citalopram Hydrobromide * (CELEXA *) 20 MG tablet 20 mg PO QDAY Qty: 30 (DME) Sharps Container Misc See Rx Instructions .Route Qty: 1 0RF Rx Instructions: As directed ibuprofen 800 mg tablet 800 mg PO TID PRN (Reason: pain) Qty: 30 0RF guaifenesin 100 mg/5 mL liquid 200 mg PO Q4H PRN (Reason: cough) Qty: 473 0RF hydroxyzine HCl 10 mg tablet 10 mg PO TID PRN (Reason: anxiety) Qty: 14 0RF hydroxyzine pamoate 25 mg capsule 25 mg PO TID PRN (Reason: anxiety) Qty: 30 0RF Problem List Clinical Impression: Hyperglycemia due to diabetes mellitus, Anxiety Patient/Caregiver Discharge Instructions Education Materials: Treatment of Diabetes Print Language: Swedish Stand Alone Forms: Roberta Award Info., Work/School Release, Patient Portal Info Letter PA/WINDOW GLASS INSTALLER Supervising Physician PA/WINDOW GLASS INSTALLER Supervising Physician: Janak Vance ENP [facility] Clinical Information Provided by: patient Medical Records reviewed [facility] Meds/Rx considered, not ordered None Labs/Rad/Tests considered, not ordered None Chronic Illness/Social Conditions Explain: Diabetes noncompliance homelessness Medication Administration(s) Medication Administration History Discontinued Medications Insulin Human Regular (Insulin Hum Regular 1 Unit/0.01 Ml (Per Unit)) 5 unit SC X1 ONE Stop: 04/11/25 12:29 Last Admin: 04/11/25 12:45 Dose: 5 unit Documented By: Co-signed By: GREG
[2025-04-11] MEDS: INSULIN HUM REGULAR 1 UNIT/0.01 ML (PER UNIT) 5 UNIT SC (12:45)
== END 2025-04-11 12:53 | disposition home or self-care (01) ==
LOC: SERX 12:36
PROVIDERS: Emergency Provider Emergency Medicine; PCP Family Medicine
DX: F41.9 Anxiety disorder, unspecified (principal); E11.65 Type 2 diabetes mellitus with hyperglycemia; Z79.4 Long term (current) use of insulin
CPT/HCPCS: 99283; J1815

== ENCOUNTER 2025-06-20 09:31 | Emergency (ER) | payer MEDICAID, SELFPAY ==
[2025-06-20 09:33] VITALS: PULSE 96; O2SAT 99; BMI 23.0
[2025-06-20 09:47] VITALS: BP 166/87; PULSE 100; RESP 18; TEMP 36.4; O2SAT 98
--- NOTE | 2025-06-20 10:09 | XR_ITS ---
EXAMINATION: PA lateral chest 2 views TECHNIQUE: Upright PA lateral chest 2 views Date and time: June 20, 2025, 1020 hours INDICATIONS: Chest pain and coughing today. FINDINGS: Normal heart size Lungs are clear. Osseous structures are intact IMPRESSION: No active disease
--- NOTE | 2025-06-20 10:09 | EKG_ITS ---
[facility] Test Date: 2025-06-20 Pat Name: YESSY GUTIERREZ Department: Room: - Gender: Female Hvac Maintenance Technician: : 1970 Requested By: Sofiya Chirinos Order Number: [id number] Reading MD: Sofiya Chirinos Measurements Intervals [place] Rate: 98 P: 35 MS: 137 QRS: 12 QRSD: 99 T: 49 QT: 350 QTc: 448 Interpretive Statements SINUS RHYTHM ANTERIOR MYOCARDIAL INFARCTION , OF INDETERMINATE AGE [40+ ms Q WAVE AND/OR ST/T ABNORMALITY IN V3/V4] POSSIBLE INFERIOR MYOCARDIAL INFARCTION , OF INDETERMINATE AGE [30 ms Q WAVE IN II/aVF] Compared to ECG 04/03/2025 18:37:07 No significant changes /store/S0/[id number]/ecg/[id number].pdf
[2025-06-20] MEDS: IBUPROFEN TAB 400 MG TABLET 800 MG PO (10:19)
[2025-06-20] MEDS: ACETAMINOPHEN 500 MG TABLET 1000 MG PO (10:19)
--- NOTE | 2025-06-20 10:21 | PD.EDANX ---
ED Anxiety RME/HPI General Chief Complaint: Anxiety Stated Complaint: ANXIETY Time Seen by Provider: 06/20/25 09:39 Arrival date/time: 06/20/25 09:31 This is a 54-year-old female that comes into the emergency room with complaints of multiple complaints. Patient states she is currently homeless. Patient reports having a cough, sore throat, runny nose, shortness of breath and has had chest pain on and off for the past 2 years according to patient. Patient is also complaining of some dysuria. Patient recently reports that she visited her family member in a [place] and got very anxious. Patient does admit to some drug use but states she is not addicted to drugs. Related Data Home Medications ?Medication ?Instructions ?Recorded ?Confirmed Hum Insulin Nph/Reg Insulin Hm 25 u subcut AM/PM DIABETES ##0 11/03/09 (Novolin 70/30 100 Units/Ml Via) gabapentin 100 mg capsule 600 mg PO TID PAIN #0 caps 07/18/13 atenolol 25 mg tablet (Tenormin) 25 mg PO HS #0 tabs 07/23/14 Aspirin (Adult Low Strength Aspir) 81 mg PO QDAY ##30 11/28/16 Atorvastatin Calcium 10 mg PO HS ##30 11/28/16 Citalopram Hydrobromide * (CELEXA 20 mg PO QDAY ##30 11/28/16 *) alprazolam 0.25 mg tablet 0.25 mg PO BID ##60 11/28/16 glipizide 5 mg tablet 5 mg PO QDAY ##60 11/28/16 hydrochlorothiazide 25 mg tablet 25 mg PO QDAY ##30 11/28/16 lisinopril 10 mg tablet 10 mg PO QDAY ##30 11/28/16 Previous Rx's ?Medication ?Instructions ?Recorded Hydrocodone/Acetaminophen * (NORCO 1 tab PO Q6H PRN PAIN #28 tabs 05/28/15 5/325 *) Hydrocodone/Acetaminophen * (NORCO 1 - 2 tab PO Q4H PRN PAIN #20 tabs 05/30/16 5/325 *) empty container (Sharps Container) #1 ea 12/26/23 ibuprofen 800 mg tablet 800 mg PO TID PRN pain #30 tabs 05/15/24 guaifenesin 100 mg/5 mL oral liquid 200 mg (10 mL) PO Q4H PRN cough 09/07/24 #473 mL hydroxyzine HCl 10 mg tablet 10 mg PO TID PRN anxiety #14 tabs 10/31/24 hydroxyzine pamoate 25 mg capsule 25 mg PO TID PRN anxiety #30 caps 04/04/25 fluconazole 150 mg tablet 150 mg PO Q3D 2 doses #2 tabs 06/20/25 Allergies Allergy/AdvReac Type Severity Reaction Status Date / Time ciprofloxacin Allergy Severe HIVES, Verified 06/20/25 09:37 VOMITING Sulfa (Sulfonamide Allergy Severe ABD PAIN Verified 06/20/25 09:37 Antibiotics) AND VOMITING Review of Systems Review of Systems Systems Reviewed: All systems reviewed, normal except as documented Past Medical History Past Medical History CARDIAC: Positive Hypertension; Negative Congestive Heart Failure RESPIRATORY: Negative Chronic Obstructive Pulmonary Disease (COPD) GENITOURINARY: Negative Renal Disease MUSCULOSKELETAL: Positive Rheumatoid Arthritis ENDOCRINE: Positive Diabetes Mellitus Type 2; Negative Diabetes Mellitus Type 1 Family History FAMILY HISTORY: Positive Family Cancer Social History SMOKING STATUS: Current some day smoker ED Exam Narrative Physical exam: VITAL SIGNS: Reviewed. GENERAL APPEARANCE: Alert and interactive, follows commands, no acute distress, HEAD AND FACE: Non-traumatic. ENT: PERRL, conjuctiva pink and clear, eyelid no trauma, Mucous membrane moist. NECK: Supple, nontender, no nuchal rigidity. CHEST: No tenderness, no crepitus, no paradoxical movement, no retractions. LUNGS: Clear, well ventilated, symmetric, no rales, no wheezing, no rhonchi, no stridor, good breath sounds bilaterally. HEART: Regular rate, regular rhythm, no murmur, no gallops. ABDOMEN: Soft, nondistended, no guarding, nontender, no rebound, no masses NEUROLOGICAL: Gross motor function intact sensory function intact, Appropriate for age. MUSCULOSKELETAL: low back nontender, full range of motion. EXTREMITIES: No redness no swelling no skin breakdown on bilateral foot and leg. Distal neurovascular status intact bilateral foot SKIN: Color pink, dry, no rash Course Quality Measures none Orders Category Date Time Status EKG (ED ONLY) *Do not use* NOW Care 06/20/25 10:09 Completed EKG (ED Only) Stat Exams 06/20/25 10:09 Draft XR chest 2V Stat Exams 06/20/25 10:09 Ordered COVID-19 Antigen (In-House) Stat Lab 06/20/25 Ordered Drug Screen,Urine Stat Lab 06/20/25 10:09 Ordered HCG Qualitative,Urine Stat Lab 06/20/25 10:09 Ordered Influenza A & B Rapid Panel Stat Lab 06/20/25 10:09 Ordered Strep A Rapid Stat Lab 06/20/25 10:09 Ordered Urinalysis, C/S if Indicated Stat Lab 06/20/25 10:09 Ordered Acetaminophen Tab [Tylenol ES Tab] Med 06/20/25 10:11 Discontinued 1,000 mg PO X1 ONE Ibuprofen Tab [Motrin Tab] Med 06/20/25 10:11 Discontinued 800 mg PO X1 ONE Vital Signs Vital signs: Vital Signs Temperature 97.6 F 06/20/25 09:47 Pulse Rate 100 06/20/25 09:47 Respiratory Rate 18 06/20/25 09:47 Blood Pressure 166/87 H 06/20/25 09:47 Pulse Oximetry (%) 98 06/20/25 09:47 Oxygen Delivery Method Room Air 06/20/25 09:47 PROCEDURES: EKG Interpretation #1: Date of EK06/20/25 Time of EK:16 Rate: 98 Interpretation: Interpreted by me (sinus rhythm ) EKG Impression: No ectopy, Normal QRS and Normal intervals Anxiety MDM Narrative MDM Narrative: chest xray: FINDINGS: Normal heart size Lungs are clear. Osseous structures are intact IMPRESSION: No active disease EKG reviewed. Patient was given Tylenol ibuprofen. Urine positive for UTI. Will send patient's urine for urine culture. Patient was also positive for methamphetamines. Patient told to follow-up with urine culture with primary provider in 1 to 2 days. [place] to the emergency room if symptoms change or worsen. Patient verbalized understanding. Patient also reports that she has some vaginal itchiness. Patient denies any discharge. Will treat for possible yeast infection. And patient is also much more likely to get a yeast infection with antibiotics. Dragon dictation: Although this document has been carefully reviewed, there may still be some phonetic and other typographical errors. These errors are purely grammatical due to imperfections in the software program and should not be construed in any way to compromise the substance of the patient's medical care during this visit. Patient data External records reviewed:: [facility] previous records Clinical information provided by:: patient Social determinants that could affect healthcare access:: none Patient has the following chronic illnesses:: see note How is presenting disease/condition affected by chronic disease/condition?: no chronic disease Evaluation data The following diagnostics were reviewed and interpreted by me:: lab results Lab and/or radiology exams considered but not ordered:: see note Interpretation Summary: see note Medications / Prescriptions Medications or Prescriptions considered but not ordered:: none Medication administrations:: Medication Administration History Discontinued Medications Acetaminophen (Acetaminophen 500 Mg Tablet) 1,000 mg PO X1 ONE Stop: 06/20/25 10:12 Last Admin: 06/20/25 10:19 Dose: 1,000 mg Documented By: GM Ibuprofen (Ibuprofen Tab 400 Mg Tablet) 800 mg PO X1 ONE Stop: 06/20/25 10:12 Last Admin: 06/20/25 10:19 Dose: 800 mg Documented By: SEAN Consultations Consultation(s) initiated? (list below): No Diagnosis Most likely diagnosis given after review of the tests above:: uti Admission Indicated Admission indicated?: not indicated Admission Request Was there a request for admission?: No Disposition Plan Disposition Plan: Discharge Discharge Attestation Discharge Attestation: The patient and all family members were given an opportunity to ask questions and understood the discharge instructions. Discharge instructions specifically effects, indications for sooner follow up or return to the emergency department, and the expected course of current diagnosis. Patient condition: Stable Discharge Plan Plan Patient Disposition: HOME (Self Care) Patient condition on transfer: Stable Prescriptions/Referrals Prescriptions/Med Rec: New fluconazole 150 mg tablet 150 mg PO Q3D Qty: 2 0RF No Action Hum Insulin Nph/Reg Insulin Hm (Novolin 70/30 100 Units/Ml Via) 10 ML VIAL 25 u Sub-Q AM/PM Qty: 0 gabapentin 100 MG capsule 600 mg PO TID Qty: 0 atenolol [Tenormin] 25 MG tablet 25 mg PO HS Qty: 0 Hydrocodone/Acetaminophen * (NORCO 5/325 *) 1 TAB tablet 1 tab PO Q6H PRN (Reason: PAIN) Qty: 28 0RF Hydrocodone/Acetaminophen * (NORCO 5/325 *) 1 TAB tablet 1 - 2 tab PO Q4H PRN (Reason: PAIN) Qty: 20 0RF Rx Instructions: FOR PAIN Aspirin (Adult Low Strength Aspir) 81 MG TABLET.DR 81 mg PO QDAY Qty: 30 Atorvastatin Calcium 10 MG tablet 10 mg PO HS Qty: 30 alprazolam 0.25 MG tablet 0.25 mg PO BID Qty: 60 lisinopril 10 MG tablet 10 mg PO QDAY Qty: 30 hydrochlorothiazide 25 MG tablet 25 mg PO QDAY Qty: 30 glipizide 5 MG tablet 5 mg PO QDAY Qty: 60 Citalopram Hydrobromide * (CELEXA *) 20 MG tablet 20 mg PO QDAY Qty: 30 (DME) Sharps Container Misc See Rx Instructions .Route Qty: 1 0RF Rx Instructions: As directed ibuprofen 800 mg tablet 800 mg PO TID PRN (Reason: pain) Qty: 30 0RF guaifenesin 100 mg/5 mL liquid 200 mg PO Q4H PRN (Reason: cough) Qty: 473 0RF hydroxyzine HCl 10 mg tablet 10 mg PO TID PRN (Reason: anxiety) Qty: 14 0RF hydroxyzine pamoate 25 mg capsule 25 mg PO TID PRN (Reason: anxiety) Qty: 30 0RF Referrals: Pranay Hatch MD [Primary Care Provider, Internal Medicine] - In 1 week Problem List Clinical Impression: UTI (urinary tract infection) Patient/Caregiver Discharge Instructions Discharge Activity: activity as tolerated Education Materials: ED CYSTITIS Female Adult Additional Instructions: Follow up with primary provider in 1-2 days. Come back to ED if symptoms change or worsen follow-up with urine culture with primary provider. Print Language: Macedonian Stand Alone Forms: Roberta Award Info., Patient Portal Info Letter PA/EFFIE Supervising Physician PA/TELEVISION ANTENNA INSTALLER Supervising Physician: yann
[2025-06-20 10:58] LABS: Collection Type, Urine Voided
[2025-06-20 11:10] LABS: Bilirubin,Urine Negative (Negative); Blood,Urine Negative (Negative); Clarity,Urine Clear (Clear/Hazy); Color,Urine Lt-Yellow (Lt Yel-Yel); Culture Indicated,Urine Yes; Glucose, Urine 4+ (Negative); Ketones,Urine Negative (Negative); Leukocyte Esterase,Urine Positive (Negative); Nitrite,Urine Negative (Negative); PH,Urine 6.0 (5.0-7.0); Protein,Urine Negative (Neg - Trace); RBC,Urine 2 /hpf (0-3); Specific Gravity,Urine 1.026 (1.001-1.035); Squamous Epithelial Cell,Urine 1 /hpf (0-5); Urobilinogen,Urine Negative mg/dL (0.0-1.0); WBC,Urine 23 /hpf (0-5)
[2025-06-20 11:11] LABS: HCG Qualitative,Urine Negative
[2025-06-20 11:29] LABS: Amphetamine/Methamp Scrn,U Positive (Negative); Barbiturate Screen,Urine Negative (Negative); Benzodiazepines Screen,Urine Negative (Negative); Benzoylecgonine Screen, Ur Negative (Negative); Fentanyl Screen,Urine Negative (Negative); Opiate Screen,Urine Negative (Negative); THC Screen,Urine Negative (Negative)
[2025-06-20 11:32] LABS: Influenza A Ag Negative; Influenza B Ag Negative; Strep A Rapid Negative (Negative)
[2025-06-20 11:35] LABS: COVID-19 Antigen (In-House) Negative (Negative)
== END 2025-06-20 13:24 | disposition home or self-care (01) ==
PROVIDERS: Nurse Practitioner Family; Emergency Provider Emergency Medicine; PCP Internal Medicine
DX: N39.0 Urinary tract infection, site not specified (principal); R07.9 Chest pain, unspecified; R05.9 Cough, unspecified; F17.200 Nicotine dependence, unspecified, uncomplicated; Z59.00 Homelessness unspecified
CPT/HCPCS: 71046; 80307; 81001; 81025; 87086; 87502; 87651; 87811; 93005; 96372; 99283; J0696; J3490; A9270